=== PATIENT | female | born 1945 | race Caucasian/White ===

== ENCOUNTER 2023-03-12 17:33 | Emergency (ER) | payer MEDICARE, MEDICAID, SELFPAY ==
[2023-03-12 17:34] VITALS: BP 150/67; PULSE 96; RESP 16; TEMP 36.8; O2SAT 98
[2023-03-12 17:49] VITALS: BMI 16.7
--- NOTE | 2023-03-12 17:51 | EDS_ITS ---
HPI History of Present Illness Chief Complaint: Hyperglycemia Informant: patient and family Onset/Context/Timing Onset: Today Context: Gradual Onset Timing: Continuous Worsened by: Nothing Relieved by: Nothing Narrative Narrative: Patient presents with hyperglycemia that was noticed today. The had an episode of hypoglycemia and family called EMS. Family states her blood sugar was 35 at that time. Family states EMS administered glucose and instructed her to eat her normal diet. Family states patient was feeling better. Family was repeating her blood sugars at home and noticed that her blood sugar went up to 285 and then up to 325 while they were at home. Patient denies any symptoms. Patient denies any history of diabetes. Patient denies any recent fevers or chills. [facility] Medical History (Updated 03/12/23 @ 18:[address] Bakari Ca DO) CHF (congestive heart failure) COPD (chronic obstructive pulmonary disease) Hypercholesteremia Hypertension Home Medications Atorvastatin Calcium 40 mg PO DAILY 03/26/17 [History Last Taken 03/26/17] enalapril maleate 20 mg tablet 20 mg PO BID 03/26/17 [History Last Taken 03/26/17] fluticasone 250 mcg-salmeterol 50 mcg/dose blistr powdr for inhalation (Advair Diskus) 1 ea IH DAILY 03/26/17 [History Last Taken 03/26/17] hydrochlorothiazide 25 mg tablet 25 mg PO DAILY 03/26/17 [History Last Taken 03/26/17] levothyroxine 88 mcg tablet (Synthroid) 88 mcg PO DAILY 03/26/17 [History Last Taken 03/26/17] Allergy/AdvReac Type Severity Reaction Status Date / Time No Known Allergies Allergy Verified 03/12/23 17:50 Surgical History (Updated 03/12/23 @ 17:[address] Bakari Ca DO) History of thyroid surgery Social History Smoking Status: Former smoker ROS ROS ED Constitutional Constitutional ED: Denies chills or fever(s) Eyes Eyes: Denies blurry vision or change in vision ENT ENT ED: Denies rhinorrhea or sore throat Cardiovascular Cardiovascular: Denies chest pain or palpitations Respiratory/Chest Respiratory/Chest: Denies cough or dyspnea Gastrointestinal Gastrointestinal: Denies nausea or vomiting Genitourinary Genitourinary ED: Denies dysuria or hematuria Musculoskeletal Musculoskeletal: Denies back pain or neck pain Integumentary Denies abscess or rash Neurologic Neurologic: Denies headache(s) or weakness Allergic/Immunologic Allergic/Immunologic ED: Denies mouth swelling or urticaria EXAM Physical Exam Const Vital Signs: 03/12/23 17:34 03/12/23 17:52 Temperature 98.2 F Temperature Source Temporal Pulse Rate 96 Respiratory Rate 16 Respiratory Effort Normal Non-Labored Blood Pressure 150/67 H Blood Pressure Mean 94 Pulse Ox 98 Oxygen Delivery Method Room Air Positive well nourished and well developed General Appearance ED: well developed HEENT Reports moist mucous membranes Neck supple and no JVD Resp normal respiratory effort and clear to auscultation bilaterally Cardio regular rate, regular rhythm and no murmurs GI normal to inspection, nondistended, normoactive bowel sounds and non-tender Palpation: soft Neuro oriented x3, CN's II-XII intact bilaterally and no sensory deficits noted Sensorium / Orientation: alert Motor Exam: strength 5/5 throughout Psych mental status grossly normal Skin no rashes or lesions noted MDM MDM MDM Narrative Medical decision making narrative: Differential diagnosis includes hyperosmolar hyperglycemic state, DKA, and hyperglycemia. CBC will be obtained to assess for leukocytosis and anemia. Basic metabolic profile will be obtained to assess for electrolyte abnormality, hyperglycemia, and renal function. Urinalysis will be obtained to assess for urinary tract infection and glucosuria. Lab Data Attestation: I reviewed the patient's lab results. Lab results narrative: CBC was reviewed. There is some mild anemia with a hemoglobin of 11.1 and hematocrit 35.2. Platelets were normal. Basic metabolic profile showed an elevated glucose of 232. Sodium was 131 and chloride was 87. CO2 was slightly elevated at 38. Anion gap was normal. Urinalysis was reviewed. There is mild glucosuria of 250. There is no evidence of urinary tract infection or hematuria. Labs: Laboratory Results - last 24 hr 03/12/23 03/12/23 03/12/23 17:47 17:55 17:55 WBC 8.8 RBC 3.80 L Hgb 11.1 L Hct 35.2 L MCV 92.6 MCH 29.2 MCHC 31.5 L RDW Std Deviation 43.8 RDW Coeff of Jomar 12.8 Plt Count 210 MPV 8.9 Immature Gran % (Auto) 0.200 Neut % (Auto) 82.1 H Lymph % (Auto) 7.1 L [place] % (Auto) 9.4 Eos % (Auto) 0.9 Baso % (Auto) 0.3 Absolute Neuts (auto) 7.2 Absolute Lymphs (auto) 0.62 L Nucleated RBC % 0 Sodium 131 L Potassium 3.9 Chloride 87 L Carbon Dioxide 38.0 H Anion Gap 6 BUN 24 H Creatinine 0.75 Estim Creat Clear Calc 32.77 Est GFR (MDRD) Af Amer 96 Est GFR (MDRD) Non-Af 80 BUN/Creatinine Ratio 32.1 H Glucose 232 H Calcium 9.5 Urine Color Urine Clarity Urine pH Ur Specific [place] Urine Protein Urine Glucose (UA) Urine Ketones Urine Occult Blood Urine Nitrite Urine Bilirubin Urine Urobilinogen Ur Leukocyte Esterase Urine RBC Urine WBC Ur Squamous Epith Cells Urine Bacteria Urine Mucus POC Glucose 239 H 03/12/23 18:06 WBC RBC Hgb Hct MCV MCH MCHC RDW Std Deviation RDW Coeff of Jomar Plt Count MPV Immature Gran % (Auto) Neut % (Auto) Lymph % (Auto) [place] % (Auto) Eos % (Auto) Baso % (Auto) Absolute Neuts (auto) Absolute Lymphs (auto) Nucleated RBC % Sodium Potassium Chloride Carbon Dioxide Anion Gap BUN Creatinine Estim Creat Clear Calc Est GFR (MDRD) Af Amer Est GFR (MDRD) Non-Af BUN/Creatinine Ratio Glucose Calcium Urine Color Yellow Urine Clarity Sl. Cloudy Urine pH 7.0 Ur Specific [place] 1.010 Urine Protein 15 H Urine Glucose (UA) 250 H Urine Ketones Negative Urine Occult Blood Negative Urine Nitrite Negative Urine Bilirubin Negative Urine Urobilinogen 1 H Ur Leukocyte Esterase 100 H Urine RBC 0 SEEN Urine WBC 0-5 SEEN Ur Squamous Epith Cells 0 SEEN Urine Bacteria 0 SEEN Urine Mucus 0 SEEN POC Glucose Treatment and Re-Evaluation :: Patient is feeling better on reevaluation. Patient was advised of her findings. Patient was instructed to continue her diet as previously instructed. Patient was instructed to follow-up with her primary care physician in 5 to 7 days. Patient and family understood and were agreeable with the plan. All questions were answered. Discharge Plan Triage Chief Complaint: Hyperglycemia ED Provider: Bakari Ca Dx/Rx/DC Orders Clinical Impression: Hyperglycemia Instructions: ED Hyperglycemia New Susp Diabetes Prescriptions: No Action Atorvastatin Calcium 40 MG tablet 40 mg PO DAILY fluticasone propion-salmeterol [Advair Diskus] 1 EACH blister with device 1 ea IH DAILY enalapril maleate 20 MG tablet 20 mg PO BID levothyroxine [Synthroid] 88 MCG tablet 88 mcg PO DAILY hydrochlorothiazide 25 MG tablet 25 mg PO DAILY Primary Care Provider: [facility] Doctor,Out of Referrals: [facility] Doctor,Out of [Primary Care Provider] - 5-7 Days Disposition Disposition: Home, Self Care
[2023-03-12 18:03] LABS: Absolute Lymphocyte Count 0.62 X10^3/uL (0.83-4.51); Absolute Neutrophil Count 7.2 X10^3/uL (2.0-7.7); Basophil# 0.03 X10^3/uL; Basophil% 0.3 % (0-1); Eosinophil# 0.08 X10^3/uL; Eosinophils% 0.9 % (0-5); Hematocrit 35.2 % (37-47); Hemoglobin 11.1 g/dL (12.0-15.0); Lymphocyte # 0.62 X10^3/ul (0.83-4.51); Lymphocyte % 7.1 % (19-41); Mean Corp Hgb Conc 31.5 g/dL (32-36); Mean Corpuscular Hgb 29.2 pg (27.0-32.0); Mean Corpuscular Volume 92.6 fL (81-99); Mean Platelet Vol. 8.9 fl (6.2-12.0); Monocyte# 0.82 X10^3/uL; Monocyte% 9.4 % (0-10); NRBC Flagged by Analyzer 0 % (0-5); Neutrophil # 7.19 X10^3/uL (2.7-7.7); Neutrophil % 82.1 % (47-70); Platelet Count 210 K/mm3 (150-450); RBC Distribution Width CV 12.8 % (11.6-14.6); RBC Distribution Width SD 43.8 fl (35.1-43.9); White Blood Count 8.8 K/mm3 (4.4-11.0)
[2023-03-12 18:04] LABS: Bedside Glucose 239 mg/dL (74-106)
[2023-03-12 18:11] LABS: Bacteria 0 SEEN /hpf (None Seen); Mucous, Urine 0 SEEN /hpf (<or=2+); Red Blood Cells-Urine 0 SEEN /hpf (0-5); Squamous Epithelial Cells - UA 0 SEEN /hpf (5-10)
[2023-03-12 18:12] LABS: Color, Urine Yellow (Yellow); Glucose, Dipstick 250 mg/dl (Normal); Ketone-Dipstick Negative (Negative); Leukocyte Esterase-Dipstick 100 /ul (Negative); Nitrite-Dipstick Negative (Negative); Occult Blood-Urine Negative /ul (Negative); Protein-Dipstick 15 mg/dl (Negative); Urine Bilirubin Dipstick Negative (Negative); Urine Clarity Sl. Cloudy (Clear); Urine Urobilinogen 1 mg/dl (Normal)
[2023-03-12 18:16] LABS: Anion Gap 6 (5-15); BUN 24 mg/dL (7-18); BUN/Creat Ratio 32.1 RATIO (10-20); Calcium,Total 9.5 mg/dL (8.5-10.1); Chloride 87 mmol/L (98-107); Creatinine, Serum 0.75 mg/dL (0.55-1.02); EST Glomerular Filtration Rate 80 mL/min (>60); Est Glom Filt Rate - Afr Amer 96 mL/min (>60); Estimated Creatinine Clearance 32.77 ml/min; Glucose 232 mg/dL (74-106); Potassium 3.9 mmol/L (3.5-5.1); Sodium Level 131 mmol/L (136-145)
[2023-03-12 18:18] LABS: White Blood Cells 0-5 SEEN /hpf (0-5)
[2023-03-12 18:48] VITALS: BP 146/73; PULSE 94; RESP 18; O2SAT 96
--- NOTE | 2023-03-12 18:49 | ED.RN ---
PT WEARS 3L NC AT BASELINE, DISCHARGED ON 3L NC.
== END 2023-03-12 18:51 | disposition home or self-care (01) ==
PROVIDERS: Emergency Provider Emergency Medicine; Visit Provider Emergency Medicine
DX: R73.9 Hyperglycemia, unspecified (principal); J44.9 Chronic obstructive pulmonary disease, unspecified; I11.0 Hypertensive heart disease with heart failure; I50.9 Heart failure, unspecified; Z87.891 Personal history of nicotine dependence; E78.00 Pure hypercholesterolemia, unspecified; Z79.899 Other long term (current) drug therapy
CPT/HCPCS: 80048; 81001; 82962; 85025; 99283; A4216

== ENCOUNTER 2023-11-23 19:16 | Inpatient (IN) | payer MEDICARE, MEDICAID, SELFPAY ==
[2023-11-23 19:20] VITALS: BP 139/70; PULSE 93; RESP 18; TEMP 36.2; O2SAT 95
--- NOTE | 2023-11-23 19:57 | EKG12_ITS ---
Test Reason : LOWER EXT Blood Pressure : / mmHG Vent. Rate : 098 BPM Atrial Rate : 098 BPM P-R Int : 128 ms QRS Dur : 086 ms QT Int : 310 ms P-R-T Axes : 081 051 064 degrees QTc Int : 395 ms Normal sinus rhythm Right atrial enlargement Borderline ECG Confirmed by SAVANNAH ARAUZ, DIANN ([id number]), managing editor SUSANNE CHONG ([id number]) on 11/25/2023 10:36:54 AM Referred By: Confirmed By:DIANN NUÑEZ MD
--- NOTE | 2023-11-23 20:00 | RAD_ITS ---
STUDY: X-RAY - PELVIS REASON FOR EXAM: Female, 77 years old. FALL TECHNIQUE: One view of the pelvis was obtained. COMPARISON: None. FINDINGS: Abundant fecal debris within the colon which may indicate constipation. Normal visualized soft tissue structures. There is diffuse demineralization of the osseous structures. There is narrowing with cortical sclerosis and osteophyte formation of the sacroiliac joint consistent with degenerative osteoarthritic changes. Normal visualized bilateral superior and inferior pubic rami. There are degenerative changes of the pubic symphysis with articular narrowing and sclerosis. Normal ischial tuberosities. There is right femoral neck subcapital fracture with superior displacement of the femoral shaft in relation to the femoral head. Normal right acetabulum. There is mild articular joint space narrowing of the right hip. Normal visualized left femoral head. Normal left acetabulum. There is mild articular joint space narrowing of the left hip. RAD/Pelvis 1 or 2 Views IMPRESSION: Right femoral neck/subcapital fracture as described with some degree of superior displacement of the femoral shaft in relation to the head. No joint dislocation. Electronically Signed: Kamla Valdivia MD at 20:42 EST ,
--- NOTE | 2023-11-23 20:00 | RAD_ITS ---
STUDY: X-RAY - RIGHT ANKLE REASON FOR EXAM: Female, 77 years old. pain TECHNIQUE: 2 view(s) of the ankle. COMPARISON: None. FINDINGS: Possible diffuse osteopenia. Otherwise normal visualized distal tibia and fibula. Normal medial and lateral malleoli. Normal tibiotalar articulation and ankle mortise. Normal visualized talus and calcaneus. The visualized subtalar, talonavicular, calcaneocuboid and tarsal articulations are normal. There is no demonstrated fracture. Diffuse soft tissue swelling of the distal calf and ankle. RAD/Ankle 2 Views IMPRESSION: Possible osteopenia with no acute fracture or subluxation. Nonspecific soft tissue swelling as described. Electronically Signed: Kalma Valdivia MD at 20:39 EST ,
--- NOTE | 2023-11-23 20:00 | RAD_ITS ---
STUDY: X-RAY CHEST REASON FOR EXAM: Female, 77 years old. FALL TECHNIQUE: Single AP portable view of the chest. COMPARISON: None. FINDINGS: There is a large mass within the right mid upper lung measuring 8.3 x 7.2 cm with questionable cavitation which may indicate neoplasm versus cavitary infectious process. There is left perihilar interstitial opacity with thickening of interstitial markings which may indicate asymmetric vascular congestion versus left perihilar pneumonitis. The lungs are hyperinflated with flattening of the hemidiaphragms suggestive of underlying COPD or emphysema. Possible minimal right-sided pleural thickening. No pneumothorax. Normal size heart. Normal mediastinum and tegan. There is atherosclerotic calcification of the aortic arch with tortuosity. There is demineralization of the osseous structures. Normal visualized ribs, clavicles, and shoulders. There is no demonstrated abnormality of the visualized soft tissue structures of the upper abdomen. RAD/Chest 1 View IMPRESSION: Large cavitary lesion in the right mid upper lung suggestive of neoplasm versus cavitary infectious process. If indicated, follow-up with CT chest recommended. Left perihilar pneumonia versus less likely asymmetric vascular congestion/pulmonary interstitial edema. Electronically Signed: Kamla Valdivia MD at 20:44 [facility] ,
--- NOTE | 2023-11-23 20:00 | RAD_ITS ---
STUDY: X-RAY - RIGHT TIBIA AND FIBULA REASON FOR EXAM: Female, 77 years old. pain TECHNIQUE: 2 view(s) of the tibia and fibula were obtained. COMPARISON: None. FINDINGS: There is demineralization of the tibia. There is demineralization of the fibula. There is no demonstrated acute fracture. Possible mild diffuse soft tissue swelling. RAD/Tibia & Fibula 2 Views IMPRESSION: Question osteopenia with no distinct fracture or subluxation seen. Electronically Signed: Kamla Valdivia MD at 21:26 EST ,
--- NOTE | 2023-11-23 20:00 | RAD_ITS ---
STUDY: X-RAY - RIGHT FEMUR REASON FOR STUDY: Female, 77 years old. pain TECHNIQUE: 2 view(s) of the femur. COMPARISON: None. FINDINGS: There is diffuse demineralization of the femur. Normal visualized soft tissue structure. There is a right femoral To fracture with superior displacement of the femoral shaft in relation to the femoral head. RAD/Femur Min 2 Views IMPRESSION: Femoral neck fracture as described with superior displacement of the femoral shaft in relation to the head. No joint dislocation seen. Electronically Signed: Kamla Valdivia MD at 20:40 EST ,
[2023-11-23] MEDS: Ibuprofen 600 MG Tablet PO (20:21)
[2023-11-23 20:30] LABS: Absolute Lymphocyte Count 0.96 X10^3/uL (0.83-4.51); Absolute Neutrophil Count 8.6 X10^3/uL (2.0-7.7); Basophil# 0.05 X10^3/uL; Basophil% 0.5 % (0-1); Eosinophil# 0.19 X10^3/uL; Eosinophils% 1.8 % (0-5); Hematocrit 35.9 % (37-47); Hemoglobin 10.9 g/dL (12.0-15.0); Lymphocyte # 0.96 X10^3/ul (0.83-4.51); Lymphocyte % 9.1 % (19-41); Mean Corp Hgb Conc 30.4 g/dL (32-36); Mean Corpuscular Hgb 27.6 pg (27.0-32.0); Mean Corpuscular Volume 90.9 fL (81-99); Monocyte# 0.71 X10^3/uL; Monocyte% 6.7 % (0-10); NRBC Flagged by Analyzer 0 % (0-5); Neutrophil % 81.6 % (47-70); Platelet Count 260 K/mm3 (150-450); RBC Distribution Width CV 12.8 % (11.6-14.6); RBC Distribution Width SD 42.9 fl (35.1-43.9); Red Blood Count 3.95 M/mm3 (4.2-5.4); White Blood Count 10.5 K/mm3 (4.4-11.0)
[2023-11-23 20:46] VITALS: BP 140/71; PULSE 99; RESP 18; TEMP 36.6; O2SAT 92
[2023-11-23 20:48] LABS: Anion Gap 3 (5-15); BUN 28 mg/dL (7-18); BUN/Creat Ratio 37.5 RATIO (10-20); Chloride 90 mmol/L (98-107); Creatinine, Serum 0.75 mg/dL (0.55-1.02); EST Glomerular Filtration Rate 80 mL/min (>60); Est Glom Filt Rate - Afr Amer 96 mL/min (>60); Glucose 126 mg/dL (74-106); Potassium 4.3 mmol/L (3.5-5.1); Sodium Level 133 mmol/L (136-145); Troponin-I HS 21 pg/mL (3.0-54.0)
--- OUTSIDE RECORDS SUMMARY | 2023-11-23 20:55 | XMS RPT_ITS | CCD ---
Author Name Unknown Address [address] [place] [address] Organization [facility] Care Team Providers Care Language Asst Name Role Phone Matthew Blount Primary Care Provider [facility] Provider Flynn ARAUZ, Jeffrey Sheppard Primary Care Provider [phone] Sebas Torre MD Unavailable Sebas Torre MD Unavailable Sera DO, Heather Primary Care Provider [phone] Sebas Torre MD Unavailable Sera DO, Heather Primary Care Provider [phone] Shuffstall DO, Shannon Unavailable Sebas Torre MD Unavailable CINKO, LIBERTINE Referring Unavailable SERA, HEATHER Primary Care Unavailable SERA, HEATHER Referring Unavailable CINKO, LIBERTINE Attending Unavailable SERA, HEATHER Primary Care Unavailable SERA, HEATHER Primary Care Unavailable IAM VITAL Attending Unavailable LINSEY MATTHEW Referring Unavailable SERA, HEATHER Primary Care Unavailable LINSEY MATTHEW Referring Unavailable SERA, HEATHER Primary Care Unavailable LINSEY MATTHEW Attending Unavailable SERA, HEATHER Primary Care Unavailable Shuffstall DO, Shannon Unavailable SERA, HEATHER Primary Care Unavailable Allergies Allergy Classification Reported Allergen(s) Allergy Type Date of Onset Reaction(s) Facility (5 sources) Penicillins; Translations: [PENICILLINS] Drug Allergy 06-21-2014 Rash [facility] (17 sources) Penicillins Drug Allergy 06-21-2014 Rash [facility] Medications Current Medications Medication Drug Class(es) Dates Sig (Normalized) Sig (Original) amLODIPine 10 mg oral tablet (20 sources) Dihydropyridine Calcium Channel Magali Start: 07-28-2021 End: 03-03-2024 take 1 tablet by mouth once daily amLODIPine (NORVASC) 10 mg tablet Indications: Essential hypertension Take 1 tablet by mouth once daily. 90 tablet 3 03/04/2023 03/03/2024 Active Completed/Discontinued Medications Medication Drug Class(es) Dates Sig (Normalized) Sig (Original) [id number] 200 actuat albuterol 0.09 mg/actuat metered dose inhaler (2 sources) beta2-Adrenergic Agonist Start: 07-28-2021 End: 02-25-2022 take 2 puff(s) by inhalation every six hours as needed for wheezing albuterol HFA (VENTOLIN HFA) 90 mcg/actuation inhaler Indications: Advanced COPD (HCC) Inhale 2 Puffs as instructed every 6 hours as needed for wheezing/shortness of breath. 1 Each 0 07/28/2021 02/25/2022 Discontinued Problems Active Problems Problem Classification Problem Date Documented Da te Episodic/Chronic Abdominal pain (3 sources) Epigastric pain; Translations: [Epigastric pain] Onset: 04-27-2023 04-27-2023 Episodic Chronic obstructive pulmonary disease and bronchiectasis (20 sources) Chronic obstructive lung disease; Translations: [Chronic obstructive pulmonary disease, unspecified] Onset: 04-16-2021 04-16-2021 Chronic Essential hypertension (20 sources) Essential hypertension; Translations: [Essential (primary) hypertension] Onset: 04-16-2021 Chronic Hypertension with complications and secondary hypertension (14 sources) Hypertensive heart failure; Translations: [Hypertensive heart disease with heart failure] Onset: 01-11-2023 01-11-2023 Chronic Mood disorders (1 source) Mood disorders; Translations: [Depression, unspecified depression type] Onset: 01-11-2023 Other endocrine disorders (1 source) Hypoglycemia; Translations: [Hypoglycemia, unspecified] 03-23-2023 Chronic Other endocrine disorders (1 source) Hypoglycemia, unspecified; Translations: [Hypoglycemia] Onset: 03-23-2023 Chronic Other nutritional; endocrine; and metabolic disorders (2 sources) Hypercalcemia; Translations: [Hypercalcemia] Chronic Other upper respiratory infections (1 source) Acute rhinosinusitis; Translations: [Acute sinusitis, unspecified] 07-19-2023 Episodic Residual codes; unclassified (1 source) Bilateral lower limb edema; Translations: [Localized edema] Episodic Thyroid disorders (20 sources) Hypothyroidism; Translations: [Hypothyroidism, unspecified] Onset: 04-16-2021 04-16-2021 Chronic Viral infection (1 source) Disease caused by 2019-nCoV; Translations: [COVID-19] Episodic Viral infection (1 source) COVID-19; Translations: [COVID-19 virus infection] Onset: 11-18-2022 Past or Other Problems Problem Classification Problem Date Documented Da te Episodic/Chronic Administrative/social admission (1 source) Other specified counseling; Translations: [Advanced care planning/counseling discussion] Onset: 01-11-2023 Episodic Other screening for suspected conditions (not mental disorders or infectious disease) (1 source) Encounter for screening for nutritional disorder; Translations: [Screening for malnutrition] Onset: 01-11-2023 Episodic Results Test Name Value Interpretation Reference Range Facil ity Vital Signs Date Time Vital Sign Value Performing Clinician Faci lity 03-23-2023 09:43-0400 Body weight 44.91 kg Linsey Matthew MD Work Phone: [facility] 03-23-2023 09:43-0400 Diastolic blood pressure 60 mm[Hg] Linsey Matthew MD Work Phone: [facility] 03-23-2023 09:43-0400 Heart rate 94 /min Linsey Matthew MD Work Phone: [facility] 03-23-2023 09:43-0400 SaO2% (BldA) [Mass fraction] 95 % Linsey Matthew MD Work Phone: [facility] 03-23-2023 09:43-0400 Systolic blood pressure 130 mm[Hg] Linsey Matthew MD Work Phone: [facility] 02-25-2022 09:10-0400 Body height 165.1 cm Sebas Torre MD Work Phone: [facility] 02-25-2022 09:10-0400 Body temperature 98.1 [degF] Sebas Torre MD Work Phone: [facility] 02-25-2022 09:10-0400 Body weight 47.17 kg Sebas Torre MD Work Phone: [facility] 02-25-2022 09:10-0400 Diastolic blood pressure 75 mm[Hg] Sebas Torre MD Work Phone: [facility] 02-25-2022 09:10-0400 Heart rate 93 /min Sebas Torre MD Work Phone: [facility] 02-25-2022 09:10-0400 Respiratory rate 20 /min Sebas Torre MD Work Phone: [facility] 02-25-2022 09:10-0400 SaO2% (BldA) [Mass fraction] 97 % Sebas Torre MD Work Phone: [facility] 02-25-2022 09:10-0400 Systolic blood pressure 149 mm[Hg] Sebas Torre MD Work Phone: [facility] Encounters Encounter Date Encounter Type Care Provider Facility Start: 07-29-2023 Refill Libjosselyn lebron APRN.CNP Work Phone: [facility] Internal [facility] ([facility]) Procedures Date Procedure Procedure Detail Performing Clinician Start: 04-16-2021 Adult depression screening assessment Sebas Torre MD Work Phone: Start: 11-07-2009 CONVERTED SURGICAL PATHOLOGY Steve Wooten Work Phone: Start: 09-19-2008 CONVERTED CYTOLOGY [employer] Darline Beverly Start: 09-21-2005 CONVERTED CYTOLOGY [place] Juvencio Goldsmith Work Phone: Plan of Treatment Date Care Activity Detail Author Start: 03-23-2026 DIABETES SCREEN DIABETES SCREEN [facility] Start: 03-23-2026 [facility] 01-11-2026 DIABETES SCREEN DIABETES SCREEN [facility] Start: 04-16-2024 DIABETES SCREEN DIABETES SCREEN [facility] Start: 03-23-2024 ANNUAL PCP TEAM BRINE TANK OPERATOR MARCELO DISEASE VISIT ANNUAL PCP TEAM CHRONIC DISEASE VISIT [facility] Start: 01-12-2024 ANNUAL PCP TEAM BRINE TANK OPERATOR MARCELO DISEASE VISIT ANNUAL PCP TEAM CHRONIC DISEASE VISIT [facility] Start: 11-18-2023 ANNUAL PCP TEAM BRINE TANK OPERATOR MARCELO DISEASE VISIT ANNUAL PCP TEAM CHRONIC DISEASE VISIT [facility] Start: 06-03-2023 Covid-19 Vaccine () Covid-19 Vaccine () [facility] Start: 06-03-2023 Influenza vaccination C [facility] Start: 02-25-2023 ANNUAL PCP TEAM BRINE TANK OPERATOR MARCELO DISEASE VISIT ANNUAL PCP TEAM CHRONIC DISEASE VISIT [facility] Start: 02-25-2023 BONE DENSITY BONE DENSITY [facility] Immunizations Immunization Date Immunization Notes Care Provider Fa hemal 08-20-2022 influenza (HD-IIV4) vaccine, age 65+ yr, high dose, quadrivalent, PF (FLUZONE HIGH-DOSE) Brittany Quintero APRN.CNMT Work Phone: [facility] 08-20-2022 influenza virus vacc ine, unspecified formulation Beckie Yo APRN.CNMT Work Phone: [facility] 07-28-2021 influenza, high-dose , quadrivalent vaccine (FLUZONE HIGH DOSE QUADRIVALENT) Sebas Torre MD Work Phone: [facility] 10-26-2019 influenza, injectabl e, quadrivalent, preservative free Sebas Torre MD Work Phone: [facility] 07-03-2018 influenza, seasonal, injectable, preservative free Sebas Torre MD Work Phone: [facility] 09-12-2017 influenza, seasonal, injectable Sebas Torre MD Work Phone: [facility] 11-04-2016 pneumococcal conjuga te vaccine, 13 valent Sebas Torre MD Work Phone: [facility] 09-12-2015 influenza, seasonal, injectable Sebas Torre MD Work Phone: [facility] Payers Date Payer Category Payer [place] [id number] 2017-Present [phone] [address] [place] [address] Medicaid [id number] 2017 [place] [id number] 2017-Present [phone] [address] [place] [address] Medicaid [id number] 2017 Medicaid [id number] 2007 Medicare [id number] 2007 Medicare MEDICARE MEDICAR E A AND B [id number] 2007-Present [phone] [place] [address] Medicare [id number] 2007 Medicare [id number] Social History Date Type Detail Facility Tobacco smoking stat [facility] Unknown if ever smoked [facility] Start: 1945 Sex Assigned At Not on file C [facility] Start: 10-26-2019 End: 03-23-2023 Tobacco smoking status HIIS Ex-smoker [facility] History of tobacco use Cigarette Smoker C [facility] Start: 10-26-2019 End: 03-23-2023 Tobacco use and exposure Smokeless tobacco non-user [facility] Start: 07-28-2021 End: 03-23-2023 Alcohol intake Ex-drinker (finding) [facility] Start: 10-26-2019 End: 03-23-2023 Tobacco Comment quit in 2004 [facility] Start: 01-17-2022 End: 02-25-2022 Exposure to SARS-CoV-2 (event) Not sure [facility] History of tobacco use Current smoker [facility] Start: 01-11-2023 End: 03-23-2023 History of Social function [facility] Work Phone: Start: 01-11-2023 End: 03-23-2023 Tobacco use panel [facility] Work Phone: Adult Depression Screening Assessment 2 [facility] Work Phone: Clinical Notes 01-27-2022 to 08-01-2023 Telephone Encounter - Renata Garcia PSS - 08/01/2023 1:57 PM EDTTelephone Encounter - Renata Garcia PSS - 08/01/2023 1:56 PM EDBeckie Carvajal APRN.CNMT - 07/19/2023 2:17 PM EDT Note Date & Type Note Facility 08-01-2023 Miscellaneous Notes Duplicate request. Renata Garcia, Enterprise Application Administrator August 01, 2023 1:57 PM documented in this encounter [facility] 08-01-2023 Miscellaneous Notes Last Office Visit Date: 01/11/2023 Last [facility] Visit: 11/18/2022 Has the patient had an appointment at [facility] in the past year, or do they have an upcoming appointment scheduled at [facility]? YES- Continue with refill request. Future Appointment: Visit date not found Patient MyChart message requesting the following refill Refill(s) Requested: Requested Prescriptions Pending Prescriptions Disp Refills enalapril (VASOTEC) 20 mg tablet 90 tablet 1 Sig: Take 1 tablet by mouth once daily. chlorthalidone (HYGROTON) 25 mg tablet 45 tablet 1 Sig: Take 0.5 tablets by mouth once daily. ALLERGIES Allergen Reactions Penicillins Rash (home) [phone] (cell) The patients preferred pharmacy has been captured for this encounter? yes Request is for script(s) to be escript to pharmacy. CHANTELLE Maynard documented in this encounter [facility] 07-19-2023 Note HNO ID: [id number] Author: Beckie Yo APRN.CNP Service: ? Author Type: Nurse Practitioner Type: Progress Notes Filed: 07/19/2023 2:20 PM Note Text: This is an Express Care eVisit note for Constanza Hernandez eVisit/Questionnaire reviewed The chief complaint for the visit - Patient presents with: Sinus Problem Recommendations/Treatment plan - Rx as below plus self care. See My Chart Message to patient. Recommendation for follow up - PRN Time spent: 5-10 minutes The following approved medication requests have been transmitted electronically. Requested Prescriptions Signed Prescriptions Disp Refills doxycycline (VIBRA-TABS) 100 mg tablet 10 tablet 0 Sig: Take 1 tablet by mouth two times a day for 5 days. Beckie Yo APRN.CNP [facility] 07-19-2023 History of Present illness Narrative This is an Express Care eVisit note for Constanza Emmanuelit/Questionnaire reviewed The chief complaint for the visit - Patient presents with: Sinus Problem Recommendations/Treatment plan - Rx as below plus self care. See My Chart Message to patient. Recommendation for follow up - PRN Time spent: 5-10 minutes The following approved medication requests have been transmitted electronically. Requested Prescriptions Signed Prescriptions Disp Refills doxycycline (VIBRA-TABS) 100 mg tablet 10 tablet 0 Sig: Take 1 tablet by mouth two times a day for 5 days. Beckie Yo APRN.DANAE documented in this encounter [facility] 05-10-2023 Miscellaneous Notes Results reviewed by patient on Mychart. L/m for Aria (daughter) to call the office. Sivan [email or web address].[email or web address] ----- Message from Linsey Matthew MD sent at 05/07/2023 12:52 PM EDT ----- Ct scan is normal. documented in this encounter [facility] 04-27-2023 Note HNO ID: [id number] Author: Zandra Pablo RT(R) Service: Radiology Author Type: Technologist Type: Progress Notes Filed: 04/27/2023 1:01 PM Note Text: Radiology Service Progress Note PATIENT NAME: Constanza Hernandez DATE OF SERVICE: April 27, 2023 TIME: 1:01 PM PATIENT IDENTITY VERIFICATION COMPLETED USING TWO (2) IDENTIFIERS: Name and Date of confirmed by patient verbally and Name and Date of confirmed by identification band. FALL SCREENING: Has the patient had 2 falls in the last year or 1 fall with injury or currently using an Ambulatory Assistive Device (Walker, Cane, Wheelchair, Crutches, etc.)? No PATIENT GENDER DATA: Female. status: : No status: NO. PATIENT RELEVANT IMPLANT DATA REVIEWED: Not Applicable RADIOLOGY DEPARTMENT: CT; Exam(s) Completed: Abdomen/Pelvis PERIPHERAL IV DATA: Not applicable SIGNED BY: ALTAGRACIA Minaya) April 27, 2023 1:01 PM [facility] 04-27-2023 History of Present illness Narrative Radiology Service Progress Note PATIENT NAME: Constanza Hernandez DATE OF SERVICE: April 27, 2023 TIME: 1:01 PM PATIENT IDENTITY VERIFICATION COMPLETED USING TWO (2) IDENTIFIERS: Name and Date of confirmed by patient verbally and Name and Date of confirmed by identification band. FALL SCREENING: Has the patient had 2 falls in the last year or 1 fall with injury or currently using an Ambulatory Assistive Device (Walker, Cane, Wheelchair, Crutches, etc.)? No PATIENT GENDER DATA: Female. status: : No status: NO. PATIENT RELEVANT IMPLANT DATA REVIEWED: Not Applicable RADIOLOGY DEPARTMENT: CT; Exam(s) Completed: Abdomen/Pelvis PERIPHERAL IV DATA: Not applicable SIGNED BY: ALTAGRACIA Minaya) April 27, 2023 1:01 PM documented in this encounter [facility] 04-14-2023 Miscellaneous Notes Left message for patient to return call regarding results. ----- Message from Linsey Matthew MD sent at 04/04/2023 10:11 AM EDT ----- Patient is not diabetic at this time. Hypoglycemic episodes is possibly due to transient fasting states and sugar spikes. Please ask patient to eat consistently throughout the day and increase protein intake. documented in this encounter [facility] 04-04-2023 Miscellaneous Notes Authorization #: approved Lab Results: not required Test date and time: 04/15/23 1 pm Facility for test: [facility] Name of test: CT abdomen/pelvis w/o oral & IV contrast. No prep Patient confirmed test via My Chart Jennifer Middleton MA April 04, 2023 4:58 PM documented in this encounter [facility] 03-23-2023 Note HNO ID: [id number] Author: Linsey Matthew MD Service: ? Author Type: Physician Type: Progress Notes Filed: 05/01/2023 10:56 PM Note Text: Linsey Matthew MD [facility] General Geriatrics [address] [place] [address] COMPREHENSIVE GERIATRICS ASSESSMENT Patient presents with: Depression Diabetes There are no exam notes on file for this visit. History of Present Illness Ms. Constanza Hernandez is a 77 year old year old lady referred for Comprehensive Geriatrics Assessment, as referred by ED for evaluation of depression and memory loss. She is here with her daughter, Aria On March 12 she was taken in the ED, had blood glucose of 32. She has never had a diagnosis of DM, Would like to address this visit today. States she occasional depression. Worries a lot. Denies polydipsia, polyuria, polyphagia, UTI. Goals: Glucose, labs, medication. Memory: Sometimes has to stop and think, but isn't writing notes. Daughter says its better than hers. Home: She lives with her daughter Aria. Has 5 people living with her. [place] house. She has everything she needs on the same floor. Social Engagement: Family. Does not go out. Hobbies: puzzle books. Mood: No changes Sleep: Has some issues with sleep. Does not sleep through the night. Gets around 4/5 hours of sleep a night, with a nap during the day. Appetite: Fluctuates. States its usually good. 4 meals a day, grazes on food. Doesn't eat a lot at once. Makes soup. 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 CHART REVIEW: Blood glucoses have been widely ranging. Her sugars are over 100 at home at this time. No increased hunger or thirst. No headache. I) What Matters Most/Goals for Care: Healthcare proxy: not in place Code Status: DNR Advance Care Planning: Have wishes or desires for end-of-life care been discussed? No Is a power of workers compensation attorney in place for financial needs? No Is a power of workers compensation attorney in place for health care decisions? No Is palliative or hospice care appropriate for the patient? No II) Mentation: Normal Mood Evaluation and Screening GDS: Negative ANTOINE-7: Negative III) Mobility: Functional Evaluation: B-ADLs: (I=independent,A=assistance,D=dep endent) ?Bathing: A, Dressing: I, Toileting: I, Transferring:I, Continence: I, Feeding: I, (Yates Index): 6 I-ADLs: Ability to use phone: I, Shopping: D, Cooking: I, Housekeeping: A, Laundry: A, Transportation:D, Medications: I, Handle Finances: I. (Leroy scale): 4 Mobility Aid: None - is interested in a walker with a tray to carry oxygen Falls: .: Falls in the last 12 months: None. If + falls (mechanism of most recent fall): Safety Assessment Checklist Questions (Yes/ No) 1. Is the patient still driving? No 2. Is the patient taking medications as prescribed? 3. Are there concerns about safety in the home? 4. Has the patient gotten lost in familiar places or wandered? 5. Are firearms present in the home? 6. Has the patient experienced unsteadiness or sustained falls? 7. Does the patient live alone? Frailty Screening (F.R.A.I.L Scale-Fried): Fatigue: YES Resistance (ability to climb a flight of stairs): NO Aerobics (ability to walk a block): NO Illnesses (presence of > 5 illnesses): YES Loss of Weight (presence of > 5% in the past 6 months): NO Patient is Frail (Robust: 0, Pre-frail: 1-2, Frail: >=3) IV) Medication Review: - ANY HIGH RISK MEDICATIONS (STOPP CRITERIA): NO Mini - Nutritional Assessment Screening Has food intake declined over the past 3 months due to loss of appetite, digestive problems, chewing or swallowing difficulties? 0 = severe decrease in food intake 1 = moderate decrease in food intake 2 = no decrease in food intake 2. Weight loss during the last 3 months 0 = weight loss greater than 3 kg (6.6 lbs) 1 = does not know 2 = weight loss between 1 and 3 kg (2.2 and 6.6 lbs) 3 = no weight loss 3. Mobility 0 = bed or chair bound 1 = able to get out of bed / chair but does not go out 2 = goes out 4. Has suffered psychological stress or acute disease in the past 3 months? 0 = yes 2 = no 5.Neuropsychological problems 0 = severe dementia or depression 1 = mild dementia 2 = no psychological problems 6. Body Mass Index (BMI) (weight in kg) / (height in m) 2 0 = BMI less than 19 1 = BMI 19 to less than 21 2 = BMI 21 to less than 23 3 = BMI 23 or greater Screening score = 14 (max. 14 points) 12-14 points: Normal nutritional status 8-11 points: At risk of malnutrition 0-7 points: Malnourished Geriatrics Review of Systems Incontinence - During the last 3 months did you leak urine? NO Constipation: NO Diarrhea: NO Orthostatic Hypo (more content not included)... [facility] 03-23-2023 History of Present illness Narrative Images from the original note were not included. Linsey Matthew MD [facility] Geriatrics [address] [place] [address] COMPREHENSIVE GERIATRICS ASSESSMENT Patient presents with: Depression Diabetes There are no exam notes on file for this visit. History of Present Illness Ms. Constanza Hernandez is a 77 year old year old lady referred for Comprehensive Geriatrics Assessment, as referred by ED for evaluation of depression and memory loss. She is here with her daughter, Aria On March 12 she was taken in the ED, had blood glucose of 32. She has never had a diagnosis of DM, Would like to address this visit today. States she occasional depression. Worries a lot. Denies polydipsia, polyuria, polyphagia, UTI. Goals: Glucose, labs, medication. Memory: Sometimes has to stop and think, but isn't writing notes. Daughter says its better than hers. Home: She lives with her daughter Aria. Has 5 people living with her. [place] house. She has everything she needs on the same floor. Social Engagement: Family. Does not go out. Hobbies: puzzle books. Mood: No changes Sleep: Has some issues with sleep. Does not sleep through the night. Gets around 4/5 hours of sleep a night, with a nap during the day. Appetite: Fluctuates. States its usually good. 4 meals a day, grazes on food. Doesn't eat a lot at once. Makes soup. 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 CHART REVIEW: Blood glucoses have been widely ranging. Her sugars are over 100 at home at this time. No increased hunger or thirst. No headache. I) What Matters Most/Goals for Care: Healthcare proxy: not in place Code Status: DNR Advance Care Planning: Have wishes or desires for end-of-life care been discussed? No Is a power of workers compensation attorney in place for financial needs? No Is a power of workers compensation attorney in place for health care decisions? No Is palliative or hospice care appropriate for the patient? No II) Mentation: Normal Mood Evaluation and Screening GDS: Negative ANTOINE-7: Negative III) Mobility: Functional Evaluation: B-ADLs: (I=independent,A=assistance,D=dep endent) ?Bathing: A, Dressing: I, Toileting: I, Transferring:I, Continence: I, Feeding: I, (Yates Index): 6 I-ADLs: Ability to use phone: I, Shopping: D, Cooking: I, Housekeeping: A, Laundry: A, Transportation:D, Medications: I, Handle Finances: I. (Leroy scale): 4 Mobility Aid: None - is interested in a walker with a tray to carry oxygen Falls: .: Falls in the last 12 months: None. If + falls (mechanism of most recent fall): Safety Assessment Checklist Questions (Yes/ No) 1. Is the patient still driving? No 2. Is the patient taking medications as prescribed? 3. Are there concerns about safety in the home? 4. Has the patient gotten lost in familiar places or wandered? 5. Are firearms present in the home? 6. Has the patient experienced unsteadiness or sustained falls? 7. Does the patient live alone? Frailty Screening (F.R.A.I.L Scale-Fried): Fatigue: YES Resistance (ability to climb a flight of stairs): NO Aerobics (ability to walk a block): NO Illnesses (presence of > 5 illnesses): YES Loss of Weight (presence of > 5% in the past 6 months): NO Patient is Frail (Robust: 0, Pre-frail: 1-2, Frail: >=3) IV) Medication Review: - ANY HIGH RISK MEDICATIONS (STOPP CRITERIA): NO Mini - Nutritional Assessment Screening Has food intake declined over the past 3 months due to loss of appetite, digestive problems, chewing or swallowing difficulties? 0 = severe decrease in food intake 1 = moderate decrease in food intake 2 = no decrease in food intake 2. Weight loss during the last 3 months 0 = weight loss greater than 3 kg (6.6 lbs) 1 = does not know 2 = weight loss between 1 and 3 kg (2.2 and 6.6 lbs) 3 = no weight loss 3. Mobility 0 = bed or chair bound 1 = able to get out of bed / chair but does not go out 2 = goes out 4. Has suffered psychological stress or acute disease in the past 3 months? 0 = yes 2 = no 5.Neuropsychological problems 0 = severe dementia or depression 1 = mild dementia 2 = no psychological problems 6. Body Mass Index (BMI) (weight in kg) / (height in m) 2 0 = BMI less than 19 1 = BMI 19 to less than 21 2 = BMI 21 to less than 23 3 = BMI 23 or greater Screening score = 14 (max. 14 points) 12-14 points: Normal nutritional status 8-11 points: At risk of malnutrition 0-7 points: Malnourished Geriatrics Review of Systems Incontinence - During the last 3 months did you leak urine? NO Constipation: NO Diarrhea: NO Orthostatic Hypotension: NO Nutrition - Loss of weight (> 5% in the past 6 months): NO Vision Positive for vision impairment and wears glasses Follows with sales support rep:NO Hearing - Hearing aid : Denies any problems, but struggles ALLERGIES Allergen Reactions Penicillins Rash PAST MEDICAL HISTORY Diagnosis Date Congestive heart failure (HCC) COPD (chronic obstructive pulmonary disease) (HCC) Hypertension Hypothyroidism PAST SURGICAL HISTORY Procedure Laterality Date THYROID SURGERY HX partial thyroidectomy Social History Tobacco Use Smoking status: Former Types: Cigarettes Smokeless tobacco: Never Tobacco comments: quit in 2004 Vaping Use Vaping Use: Former Quit date: 10/04/2004 Substance Use Topics Alcohol use: Not Currently Drug use: Not Currently FAMILY HISTORY Problem Relation Age of Onset Heart Attack Mother other (blood pressure) Mother other (blood pressure) Father Current Outpatient Medications Medication Sig amLODIPine (NORVASC) 10 mg tablet Take 1 tablet by mouth once daily. atorvastatin (LIPITOR) 40 mg tablet Take 1 tablet by mouth once daily. enalapril (VASOTEC) 20 mg tablet Take 1 tablet by mouth once daily. fluticasone-salmeterol HFA (ADVAIR HFA) 230-21 mcg/actuation inhaler Inhale 2 Puffs as instructed twice daily. levothyroxine (SYNTHROID) 88 mcg tablet Take 1 tablet by mouth once daily. chlorthalidone (HYGROTON) 25 mg tablet Take 0.5 tablets by mouth once daily. tiotropium bromide (SPIRIVA RESPIMAT) 1.25 mcg/actuation mist Inhale 2 Puffs as instructed once daily. Miscellaneous Medical Supply 1 Each as needed. Quad cane levalbuterol tartrate HFA 45 mcg/actuation inhaler Inhale 1-2 Puffs as instructed every 6 hours as needed for wheezing/shortness of breath. No current facility-administered medications for this visit. I have confirmed and edited as necessary, the chief complaint, medications, past medical, family and social histories. Physical Exam BP 130/60 Pulse 94 Wt 44.9 kg (99 lb) SpO2 95% BMI 16.47 kg/m GEN: Pleasant, elderly female, in NAD Skin: No active skin lesions/rash ENT: moist mucous membranes CV: Normal heart sounds, RRR, no m/r/g. No LE edema Resp: CTAB Abdomen/GI: soft, non tender, non distended, + BS M/S: No joint deformity, normal ROM Neuro/Psych: CN II-XII are grossly intact. Motor: normal strength and tone throughout Movements: Minimal / no postural tremor of both hands, no rest tremor, no cogwheeling or rigidity, no bradykinesia Gait and balance:? turns well in 2 steps, good arm swing. Tandems well. Negative Romberg ? Diagnostics: Glucose (mg/dL) Date Value 01/11/2023 85 10/26/2019 92 Potassium Date Value 01/11/2023 4.3 mmol/L 10/26/2019 3.7 mEq/L Sodium Date Value 01/11/2023 135 mmol/L 10/26/2019 132 mEq/L Chloride Date Value 01/11/2023 86 mmol/L 10/26/2019 92 mEq/L CO2 Date Value 01/11/2023 38 mmol/L 10/26/2019 33 mEq/L Creatinine (mg/dL) Date Value 01/11/2023 0.67 10/26/2019 0.77 BUN (mg/dL) Date Value 01/11/2023 18 10/26/2019 18 Anion Gap Date Value 01/11/2023 11 mmol/L 10/26/2019 11 Calcium (mg/dL) Date Value 10/26/2019 9.5 Calcium, Total (mg/dL) Date Value 01/11/2023 10.4 Protein, Total (g/dL) Date Value 03/23/2023 7.4 Albumin (g/dL) Date Value 03/23/2023 4.5 Bilirubin, Total (mg/dL) Date Value 03/23/2023 0.3 Alkaline Phosphatase (U/L) Date Value 03/23/2023 51 AST (U/L) Date Value 03/23/2023 31 ALT (U/L) Date Value 03/23/2023 24 CBC: Hemoglobin (g/dL) Date Value 11/27/2012 12.5 Hematocrit (%) Date Value 11/27/2012 39.1 WBC (thou/cmm) Date Value 11/27/2012 8.0 Platelet Count (thou/cmm) Date Value 11/27/2012 341 TSH (mIU/L) Date Value 01/11/2023 1.010 Vitamin D 25 Hydroxy (ng/mL) Date Value 02/25/2022 30.1 Plan Assessment and Plan Ms. Constanza Hernandez is a 77 year old year old lady referred for Comprehensive Geriatrics Assessment, as referred for evaluation of glucose levels Workup for hypoglycemia: In the setting of increased urination, increased hunger, weight loss despite normal diet - ASSESSMENT/PLAN: 1. Hypoglycemia - ICD9: 251.2, ICD10: E16.2 (primary diagnosis) Patient was describing experiences of hypoglycemia and increased sugar cravings. Family history of diabetes type II. - INSULIN ANTIBODY BLD - C-PEPTIDE BLD - HGB A1C - AMYLASE BLD - LIPASE BLD - INSULIN, FREE 2. Epigastric pain - ICD9: 789.06, ICD10: R10.13 - CT ABD/PEL WO IVCON - INSULIN ANTIBODY BLD - C-PEPTIDE BLD - AMYLASE BLD - LIPASE BLD - HEPATIC FUNCTION PNL Ordered/Reviewed serologies for potentially reversible etiologies for memory impairment: Vitamin B12, TFTs, Vitamin D MRI brain with volumetric scans Encouraged Blue Zones lifestyle principles: I) Moderate aerobic exercise - 30 minutes x 3 days a week (atleast) II) Mediterranean diet III) Increased socialization IV) Sense of purpose/ [place] V) Reading, crossword puzzles, word jumbles, Soduko ) Applications such as Lumosity , CogniFit , Memorado and Impulse Return for Refer back to PCP, No follow up needed. Thank you very much for the opportunity to participate in the care of your patient. Total time in direct patient contact = 60 min. Greater than 50% of the time was spent in counseling and/or coordination of care. LINSEY MATTHEW MD [facility]IC[facility] Discussed the above with the patient using shared decision making. The patient is in agreement with the diagnostic and treatment plans. This note was partially generated using Prepair voice recognition system, and there may be some incorrect words, spellings, and punctuation that were not noted in checking the note before saving. documented in this encounter [facility] 03-04-2023 Miscellaneous Notes Pharmacy faxed requesting the following refill Refill(s) Requested: Requested Prescriptions Pending Prescriptions Disp Refills amLODIPine (NORVASC) 10 mg tablet 90 tablet 3 Sig: Take 1 tablet by mouth once daily. atorvastatin (LIPITOR) 40 mg tablet 90 tablet 3 Sig: Take 1 tablet by mouth once daily. ALLERGIES Allergen Reactions Penicillins Rash (home) [phone] (cell) Last Office Visit Date: 01/11/2023 Last [facility] Visit: 11/18/2022 Future Appointment: Visit date not found The patients preferred pharmacy has been captured for this encounter? yes Request is for script(s) to be escript to pharmacy. Rachana Claudio LPN documented in this encounter [facility] 02-01-2023 Miscellaneous Notes Appointment 03/23/23 Appointment reminder sent to home address. Lucy Avila February 01, 2023 5:29 PM documented in this encounter [facility] 01-20-2023 Miscellaneous Notes 01/18/2023: LVM for patients daughter to please call back and make an appointment 01/18/23 tm. Confirmation #[id number] documented in this encounter [facility] 01-20-2023 Miscellaneous Notes Faxed to [facility] home respiratory. Ayesha Peralta, New Product Trainer January 20, 2023 9:50 AM I sent an order for Home O2 renewal. Please check if it's done accordingly. Thanks, Images from the original note were not included. Please route telephone encounter to the Clerical Pool ([facility] Clerical Pool) Sebas Torre MD [facility] Clerical Pool 22 hours ago (10:24 AM) ALEX Does a home O2 renewal Rx require F2F? If so, Leon TECHNICIAN TRAINEE would likely have to order because she most recently saw the patient. Thanks! Home Oxygen Renewal will require F2F, and new orders. Renata Garcia, Enterprise Application Administrator January 14, 2023 8:54 AM documented in this encounter [facility] 01-19-2023 Note HNO ID: [id number] Author: rBittany Quintero APRN.DANAE Service: ? Author Type: Nurse Practitioner Type: Progress Notes Filed: 01/19/2023 8:18 AM Note Text: Renewal of Home O2 Therapy for -patient's Advanced COPD. [facility] 01-11-2023 Note HNO ID: [id number] Author: Brittany Quintero APRN.CNMT Service: ? Author Type: Nurse Practitioner Type: Progress Notes Filed: 01/11/2023 5:19 PM Note Text: Brittany Quintero APRN [facility] Date of Evaluation: 01/11/2023 Patient Name: Constanza Hernandez : 1945 Chief Complaint: Patient presents with: Rx Refills SUBJECTIVE HPI Ms. Hernandez is a 77 year old female with medical history of CHF COPD hypertension and hypothyroidism who presents for medication refill. Patient presents with her daughter. She has her oxygen tank with her. Chronically on 3 L of oxygen. She has no acute complaints. She lives with her daughter. She what watches TV and takes care of herself. Family support includes grandchildren, and other children. She reports fair appetite. Today she forgot to take her blood pressure medications. It appears that she is managing her medications. She denies chest pain, fevers/chills, headaches, vision changes, cough, dyspnea, abdominal pain, N/V/D and/or dysuria. Denies history of depression/ anxiety. Denies history or recent suicidal or homicidal ideation. Review of Systems Constitutional: Positive for appetite change and unexpected weight change. Negative for activity change, chills, fatigue and fever. HENT: Negative for congestion, ear pain, rhinorrhea, sinus pressure, sinus pain, sore throat, trouble swallowing and voice change. Eyes: Negative for visual disturbance. Respiratory: Positive for shortness of breath. Negative for apnea, cough, choking, chest tightness, wheezing and stridor. Cardiovascular: Negative for chest pain, palpitations and leg swelling. Gastrointestinal: Negative for abdominal distention, abdominal pain, blood in stool, constipation, diarrhea, nausea and rectal pain. Endocrine: Negative for cold intolerance, heat intolerance, polydipsia, polyphagia and polyuria. Genitourinary: Negative for decreased urine volume, difficulty urinating, dysuria, flank pain, frequency, genital sores, hematuria and pelvic pain. Musculoskeletal: Positive for gait problem. Negative for arthralgias, back pain, joint swelling, myalgias, neck pain and neck stiffness. Skin: Negative for rash and wound. Neurological: Positive for weakness. Negative for dizziness, tremors, syncope, speech difficulty, light-headedness, numbness and headaches. Hematological: Negative for adenopathy. Does not bruise/bleed easily. Psychiatric/Behavioral: Negative for behavioral problems, confusion, decreased concentration, dysphoric mood, hallucinations, self-injury, sleep disturbance and suicidal ideas. The patient is not nervous/anxious and is not hyperactive. PAST MEDICAL HISTORY Diagnosis Date Congestive heart failure (HCC) COPD (chronic obstructive pulmonary disease) (HCC) Hypertension Hypothyroidism PAST SURGICAL HISTORY Procedure Laterality Date THYROID SURGERY HX partial thyroidectomy FAMILY HISTORY Problem Relation Age of Onset Heart Attack Mother other (blood pressure) Mother other (blood pressure) Father Social History Tobacco Use Smoking status: Former Types: Cigarettes Smokeless tobacco: Never Tobacco comments: quit in 2004 Substance Use Topics Alcohol use: Not Currently Drug use: Not Currently Current Outpatient Medications Medication Sig Dispense Refill amLODIPine (NORVASC) 10 mg tablet Take 1 tablet by mouth once daily. 90 tablet 3 atorvastatin (LIPITOR) 40 mg tablet Take 1 tablet by mouth once daily. 90 tablet 3 tiotropium bromide (SPIRIVA RESPIMAT) 1.25 mcg/actuation mist Inhale 2 Puffs as instructed once daily. 48 g 0 levalbuterol tartrate HFA 45 mcg/actuation inhaler Inhale 1-2 Puffs as instructed every 6 hours as needed for wheezing/shortness of breath. 1 Inhaler 3 enalapril (VASOTEC) 20 mg tablet Take 1 tablet by mouth once daily. 90 tablet 1 fluticasone-salmeterol HFA (ADVAIR HFA) 230-21 mcg/actuation inhaler Inhale 2 Puffs as instructed twice daily. 144 g 0 levothyroxine (SYNTHROID) 88 mcg tablet Take 1 tablet by mouth once daily. 90 tablet 3 Miscellaneous Medical Supply 1 Each as needed. Quad cane 1 Each 0 chlorthalidone (HYGROTON) 25 mg tablet Take 0.5 tablets by mouth once daily. 45 tablet 1 No current facility-administered medications for this visit. I have confirmed and edited as necessary the chief complaint, medications, past medical, family and social histories obtained by others. OBJECTIVE BP 173/84 Pulse 103 Temp 97.3 Resp 20 Ht 5' 5 (1.65m) Wt 96 lb (43.5kg) SpO2 97[3Lo2]% BMI 15.98 kg/(m2). Last BP 01/11/23 : 173/84 02/25/22 : 149/75 07/28/21 : 163/61 Last Wt 01/11/23 : 43.5 kg (96 lb) 02/25/22 : 47.2 kg (104 lb) 07/28/21 : 45.4 kg (100 lb) Physical Exam Vitals reviewed. Exam conducted with a piggyback clerk present. Constitutional: General: She is not in acute distress. Appearance: Normal appearance. She is not to (more content not included)... [facility] 11-29-2022 Miscellaneous Notes No Show Documentation Constanza Hernandez no showed for an appointment on 11/29/22 with Sebas Torre MD at 10:20 AM. She was scheduled for - Follow Up/ Medication Refill. I called and spoke with the patient regarding her missed appointment. Constanza stated the reason that she missed her appointment was because I called and left voicemail for the patient regarding her missed appointment. Resources discussed/offered to patient: N/A No show determined to be fault of patient: Yes This is the patients first no show in the last 12 months. Patient was rescheduled for N/A. Letter mailed : Yes Is this the Third or Fourth No Show ? No Yi Aguiar November 29, 2022 2:05 PM documented in this encounter [facility] 11-18-2022 Note HNO ID: [id number] Author: Iam Vital APRN.CNMT Service: ? Author Type: Nurse Practitioner Type: Progress Notes Filed: 11/18/2022 1:55 PM Note Text: AMBULATORY TELEPHONE VISIT Constanza Hernandez has consented to this telephone encounter. Persons Present: patient Chief Complaint/Reason: COVID-19 positive HPI: Patient is 76 yo female, with history of COPD, HTN, hypothyroidism, who presents for COVID-19 infection. She started with sore throat and fatigue that started 1-1.5 weeks ago. Has occasional cough and nasal congestion. Her grandson was positive so she decided to get tested. Took home antigen test on 11/17/22 which was positive. Has had COVID-19 vaccine and booster. Last Creat level was 0.80 on 04/16/2021. On Spiriva and Advair for COPD. She rarely uses rescue inhaler. Denies any decreased appetite, nausea, vomiting, diarrhea, or loss of taste or smell. Denies any worsening SOB or wheezing. She is drinking plenty of fluids and eating without any issues. She has not tried any OTC medications. She is feeling better over the last few days. Denies any fevers in last 24 hours. Symptoms include: Fever (?100.4F): No or Chills: No Cough: Yes Shortness of breath: No or Difficulty breathing: No Fatigue: Yes Muscle aches: No Headache: No New loss of smell or taste: No Sore throat: Yes Nasal congestion: Yes or Rhinorrhea: Yes Nausea: No or Vomiting: No Diarrhea: No Data Reviewed: Most recent labs Assessment: (U07.1) COVID-19 virus infection (primary encounter diagnosis) Plan: - Discussed symptom monitoring and supportive care - Discussed isolation for 5 days which she completed and 5 days of wearing mask around people. - Red flag symptoms requiring follow up discussed - Patient does not qualify for Paxlovid treatment due to >5 days of symptoms Nirmatrelvir/Ritonavir (Paxlovid) Eligibility and Patient Discussion [facility] Formulary Restriction Criteria: Adult outpatients 18 years and older with ALL of the following: [x] Patient has positive SARS-COV-2 viral test (PCR or antigen test) during current illness [] Patient has symptoms for 5 days or less [] Not requiring hospitalization at any time for management of COVID-19 [] Not requiring supplemental oxygen or a change in baseline supplemental oxygen [] Not utilized for pre-exposure or post-exposure prophylaxis for prevention of COVID-19 [] Patient does not have severe renal impairment (eGFR < 30 mL/min) or severe hepatic impairment (Child-Manley Class C) [] Meeting at least one of the criteria for high risk of progression to severe COVID-19: [x] Age over 65 years [] Cancer [] Chronic kidney disease [] Chronic liver disease [x] Chronic lung diseases, including cystic fibrosis [] Dementia or other neurological conditions [] Diabetes (type 1 or type 2) [] Disabilities, including Down syndrome and neurodevelopmental disorders [] Heart conditions [] HIV infection [] Immunocompromised state [] Mental health conditions [] Medical related technological dependence (tracheostomy, gastrostomy, or positive pressure ventilation (not related to COVID) [] Overweight and obesity (BMI greater or equal to 25 for adults) [] Physical inactivity [] [] Sickle cell disease or thalassemia [] Smoking, current or former [] Solid organ or blood stem cell transplant [] Stroke or cerebrovascular disease [] Substance use disorders [] Tuberculosis [] People from racial and ethnic minority groups Criteria above are met: No. The patient does not meet criteria for oral COVID-19 therapeutic at this time. Total Time Spent: Telemedicine Evaluation for COVID-19 Infection Audio only was used for evaluation of this patient. Location of patient: [place] I spent 13 minutes in the telephone visit with patient. Iam Vital APRN.[facility] 11-18-2022 History of Present illness Narrative AMBULATORY TELEPHONE VISIT Constanza Hernandez has consented to this telephone encounter. Persons Present: patient Chief Complaint/Reason: COVID-19 positive HPI: Patient is 76 yo female, with history of COPD, HTN, hypothyroidism, who presents for COVID-19 infection. She started with sore throat and fatigue that started 1-1.5 weeks ago. Has occasional cough and nasal congestion. Her grandson was positive so she decided to get tested. Took home antigen test on 11/17/22 which was positive. Has had COVID-19 vaccine and booster. Last Creat level was 0.80 on 04/16/2021. On Spiriva and Advair for COPD. She rarely uses rescue inhaler. Denies any decreased appetite, nausea, vomiting, diarrhea, or loss of taste or smell. Denies any worsening SOB or wheezing. She is drinking plenty of fluids and eating without any issues. She has not tried any OTC medications. She is feeling better over the last few days. Denies any fevers in last 24 hours. Symptoms include: Fever (?100.4F): No or Chills: No Cough: Yes Shortness of breath: No or Difficulty breathing: No Fatigue: Yes Muscle aches: No Headache: No New loss of smell or taste: No Sore throat: Yes Nasal congestion: Yes or Rhinorrhea: Yes Nausea: No or Vomiting: No Diarrhea: No Data Reviewed: Most recent labs Assessment: (U07.1) COVID-19 virus infection (primary encounter diagnosis) Plan: - Discussed symptom monitoring and supportive care - Discussed isolation for 5 days which she completed and 5 days of wearing mask around people. - Red flag symptoms requiring follow up discussed - Patient does not qualify for Paxlovid treatment due to >5 days of symptoms Nirmatrelvir/Ritonavir (Paxlovid) Eligibility and Patient Discussion [facility] Formulary Restriction Criteria: Adult outpatients 18 years and older with ALL of the following: [x] Patient has positive SARS-COV-2 viral test (PCR or antigen test) during current illness [] Patient has symptoms for 5 days or less [] Not requiring hospitalization at any time for management of COVID-19 [] Not requiring supplemental oxygen or a change in baseline supplemental oxygen [] Not utilized for pre-exposure or post-exposure prophylaxis for prevention of COVID-19 [] Patient does not have severe renal impairment (eGFR < 30 mL/min) or severe hepatic impairment (Child-Manley Class C) [] Meeting at least one of the criteria for high risk of progression to severe COVID-19: [x] Age over 65 years [] Cancer [] Chronic kidney disease [] Chronic liver disease [x] Chronic lung diseases, including cystic fibrosis [] Dementia or other neurological conditions [] Diabetes (type 1 or type 2) [] Disabilities, including Down syndrome and neurodevelopmental disorders [] Heart conditions [] HIV infection [] Immunocompromised state [] Mental health conditions [] Medical related technological dependence (tracheostomy, gastrostomy, or positive pressure ventilation (not related to COVID) [] Overweight and obesity (BMI greater or equal to 25 for adults) [] Physical inactivity [] [] Sickle cell disease or thalassemia [] Smoking, current or former [] Solid organ or blood stem cell transplant [] Stroke or cerebrovascular disease [] Substance use disorders [] Tuberculosis [] People from racial and ethnic minority groups Criteria above are met: No. The patient does not meet criteria for oral COVID-19 therapeutic at this time. Total Time Spent: Telemedicine Evaluation for COVID-19 Infection Audio only was used for evaluation of this patient. Location of patient: [facility] spent 13 minutes in the telephone visit with patient. Iam Vital APRN.CNP documented in this encounter [facility] 11-18-2022 Miscellaneous Notes Patient scheduled for provider phone call visit to discuss starting Paxlovid. Renata Garcia, Enterprise Application Administrator November 18, 2022 12:17 PM Please route telephone encounter to the Clerical Pool ([facility] Clerical Pool) Staff message received Patient tested positive for Covid on 11/17 she would like to discuss treatment options. Message left for the patient to call the office back to schedule a provider phone call appointment. Eloy West, New Product Trainer November 18, 2022 9:26 AM Asia Esp[facility] Triage Pool Patient has been identified by name and Date of (Y/N): y Patient: Constanza Hernandez Date of : 1945 Provider for this encounter: Heather Saenz DO Reason for the call/escalation: tested positive for COVID on 11/17--inquiring if a candidate for the antibiotic Was Patient Referred to [facility]/Seek Emergency Treatment (Y/N): no Did Patient Agree (Y/N): n/a Was An Attempt Made To Transfer The Patient To The Office (Y/N): no Were You Able To Reach Someone At The Office (Y/N): n/a If Yes - Patient Was Transferred To (Caregivers Name): n/a If No - Which [facility] Leadership Language Asst Did You Speak With Regarding This Patient: n/a Was an appointment scheduled (Y/N): no Reason patient was requesting visit (RFV/signs and symptoms/diagnosis) : tested positive for COVID on 11/17--inquiring if a candidate for the antibiotic Person calling if other than patient: Aria(daughter) Return call to if other than patient: Aria Best contact number: [phone] Thank you, Asia Esparza November 18, 2022 9:00 AM documented in this encounter [facility] 07-23-2022 Miscellaneous Notes Pharmacy faxed requesting the following refill Refill(s) Requested: Requested Prescriptions Pending Prescriptions Disp Refills chlorthalidone (HYGROTON) 25 mg tablet 45 tablet 1 Sig: Take 0.5 tablets by mouth once daily. enalapril (VASOTEC) 20 mg tablet 90 tablet 1 Sig: Take 1 tablet by mouth once daily. ALLERGIES Allergen Reactions Penicillins Rash (home) [phone] (cell) Last Office Visit Date: 02/25/2022 Last Distance Health Visit: Visit date not found Future Appointment: Visit date not found The patients preferred pharmacy has been captured for this encounter? yes Request is for script(s) to be escript to pharmacy. Jennifer Kirby documented in this encounter [facility] 02-26-2022 Miscellaneous Notes Add on test has resulted- please advise Odalis Simpson MA 02/26/22 2:55 Call placed to pt- no answer, left vm for return call to the office Pt order has been faxed to lab- will await result Odalis Simpson MA 02/26/22 1:46 Reviewed patient's recent blood work. Please call patient and update her of the results: Thyroid levels are fine. Continue current dose of levothyroxine. Free T4 is 0.1 unit above normal range, so will continue to monitor next year. Not an actionable finding at this point. Calcium is very mildly elevated, despite Vitamin D levels being on lower end of normal range. Will check parathyroid gland function, and order as reflex lab to be done on already collected blood. If that is unable to be obtained, patient will need to return to a [facility] lab location to have level drawn. Thank you! Sebas Torre MD February 26, 2022 12:52 PM documented in this encounter [facility] 02-25-2022 History of Present illness Narrative Attending Note I discussed with resident. The patient was not seen or examined by the attending. I reviewed the resident's note. I agree with the resident's assessment and plan unless otherwise noted. Signature: Meli Lanier MD Date: 02/25/2022. Time: 9:33 AM Images from the original note were not included. [facility] Sebas Torre MD ASSESSMENT/PLAN: 1. Advanced COPD (HCC) - ICD9: 496, ICD10: J44.9 (primary diagnosis) - continue inhalers as before; required refills but some had to be changed due to formulary issues - FLUTICASONE PROPIONATE 230 MCG-SALMETEROL 21 MCG/ACTUATION HFA INHALER - SPIRIVA RESPIMAT 1.25 MCG/ACTUATION SOLUTION FOR INHALATION - LEVALBUTEROL HFA 45 MCG/ACTUATION AEROSOL INHALER - SPIROMETRY - BASELINE AND POST DILATOR 2. Essential hypertension - ICD9: 401.9, ICD10: I10 - suboptimal control - did not take medications today, will when she gets home - Recommended regular aerobic exercise. - Goal of BP <140/90 - AMLODIPINE 10 MG TABLET - ATORVASTATIN 40 MG TABLET 3. Bilateral lower extremity edema - ICD9: 782.3, ICD10: R60.0 - COMPRESSION STOCKINGS 4. Hypothyroidism, unspecified type - ICD9: 244.9, ICD10: E03.9 - Instructed patient on importance of taking on an empty stomach either first thing in the morning or at bedtime. - check TSH and free T4 today - can tweak synthroid dose if necessary - LEVOTHYROXINE 88 MCG TABLET - TSH BLD - T4 FREE/FREE THYROX 5. Hypercalcemia - ICD9: 275.42, ICD10: E83.52 - mild hypercalcemia noted on labs in April - will repeat today, assess if need to make changes to medication/supplement regimen - VITAMIN D 25 HYDROXY - CALCIUM TOTAL BLD - CALCIUM IONIZED B Sebas Torre MD SUBJECTIVE: Constanza Hernandez is a 76 year old year old female here today for interval follow up. Pt is a 76yo female with PMH including CHF, advanced COPD, hypothyroidism, and HTN who presents to clinic today for interval follow up of leg swelling and COPD. Reports she is feeling mostly well, having recurrence of lower leg edema. Now consenting to compression stockings, RX sent. Taking all inhalers as prescribed, feeling well, has no other concerns, questions, or new/worsening symptoms. PAST MEDICAL HISTORY Diagnosis Date Congestive heart failure (HCC) COPD (chronic obstructive pulmonary disease) (HCC) Hypertension Hypothyroidism PAST SURGICAL HISTORY Procedure Laterality Date THYROID SURGERY HX partial thyroidectomy Social History Tobacco Use Smoking status: Former Smoker Types: Cigarettes Smokeless tobacco: Never Used Tobacco comment: quit in 2004 Substance Use Topics Alcohol use: Not Currently Drug use: Not Currently FAMILY HISTORY Problem Relation Age of Onset Heart Attack Mother other (blood pressure) Mother other (blood pressure) Father There are no active hospital problems to display for this patient. PAIN EVALUATION No data found in the last 1 encounters. ALLERGIES Allergen Reactions Penicillins Rash Medication List prior to visit Current Outpatient Medications on File Prior to Visit Medication Sig chlorthalidone (HYGROTON) 25 mg tablet Take 0.5 tablets by mouth once daily. enalapril (VASOTEC) 20 mg tablet Take 1 tablet by mouth once daily. tiotropium bromide (SPIRIVA RESPIMAT) 1.25 mcg/actuation mist Inhale 2 Puffs as instructed once daily. amLODIPine (NORVASC) 10 mg tablet Take 1 tablet by mouth once daily. atorvastatin (LIPITOR) 40 mg tablet Take 1 tablet by mouth once daily. levothyroxine (SYNTHROID) 88 mcg tablet Take 1 tablet by mouth once daily. albuterol HFA (VENTOLIN HFA) 90 mcg/actuation inhaler Inhale 2 Puffs as instructed every 6 hours as needed for wheezing/shortness of breath. fluticasone-salmeterol HFA (ADVAIR HFA) 115-21 mcg/actuation inhaler Inhale 2 Puffs as instructed twice daily. Current Facility-Administered Medications on File Prior to Visit Medication perflutren lipid microspheres 1.3 mL in NaCl (PF) 0.9% 10 mL injection (DEFINITY) sodium chloride 0.9 % (flush) 10 mL (BD POSIFLUSH) I have confirmed and edited as necessary the chief complaint, medications, past medical, family and social histories. Review of Systems Constitutional: Negative for activity change, appetite change, chills, diaphoresis, fatigue and fever. HENT: Negative. Eyes: Negative. Respiratory: Positive for shortness of breath (chronic). Negative for cough, chest tightness, wheezing and stridor. Cardiovascular: Negative for chest pain, palpitations and leg swelling. Gastrointestinal: Negative for abdominal pain, constipation, diarrhea, nausea and vomiting. Endocrine: Negative for cold intolerance, heat intolerance, polydipsia, polyphagia and polyuria. Genitourinary: Negative for difficulty urinating, dysuria, hematuria and urgency. Musculoskeletal: Negative for arthralgias, back pain and joint swelling. Skin: Negative. Allergic/Immunologic: Negative. Neurological: Negative for syncope, numbness and headaches. Hematological: Bruises/bleeds easily. Psychiatric/Behavioral: Negative for agitation, decreased concentration, sleep disturbance and suicidal ideas. The patient is not nervous/anxious. OBJECTIVE: BP 149/75 (BP Site: Left Arm) Pulse 93 Temp 36.7 C (98.1 F) Resp 20 Ht 165.1 cm (5' 5 ) Wt 47.2 kg (104 lb) SpO2 97% BMI 17.31 kg/m Body mass index is 17.31 kg/m . Physical Exam Vitals reviewed. Constitutional: General: She is not in acute distress. Appearance: Normal appearance. She is not ill-appearing, toxic-appearing or diaphoretic. HENT: Head: Normocephalic and atraumatic. Mouth/Throat: Mouth: Mucous membranes are moist. Pharynx: Oropharynx is clear. No oropharyngeal exudate or posterior oropharyngeal erythema. Eyes: General: No scleral icterus. Extraocular Movements: Extraocular movements intact. Pupils: Pupils are equal, round, and reactive to light. Cardiovascular: Rate and Rhythm: Normal rate and regular rhythm. Pulses: Normal pulses. Heart sounds: Normal heart sounds. No murmur heard. No friction rub. No gallop. Pulmonary: Effort: Prolonged expiration and retractions present. No accessory muscle usage or respiratory distress. Breath sounds: Decreased air movement present. No wheezing, rhonchi or rales. Comments: Increased AP diameter of chest Chest: Chest wall: No tenderness. Abdominal: General: Bowel sounds are normal. There is no distension. Palpations: Abdomen is soft. Tenderness: There is no abdominal tenderness. There is no guarding. Musculoskeletal: General: No swelling, tenderness or deformity. Normal range of motion. Cervical back: Normal range of motion. No tenderness. Right lower leg: No edema. Left lower leg: No edema. Lymphadenopathy: Cervical: No cervical adenopathy. Skin: General: Skin is warm and dry. Capillary Refill: Capillary refill takes less than 2 seconds. Coloration: Skin is not jaundiced. Findings: No bruising. Neurological: General: No focal deficit present. Mental Status: She is alert and oriented to person, place, and time. BP 149/75 Pulse 93 Temp 98.1 Resp 20 Ht 5' 5 (1.65m) Wt 104 lb (47.2kg) SpO2 97[3L O2]% BMI 17.31 kg/(m^2). Last BP 02/25/22 : 149/75 07/28/21 : 163/61 04/16/21 : 144/60 Last Wt 02/25/22 : 47.2 kg (104 lb) 07/28/21 : 45.4 kg (100 lb) 04/16/21 : 46.9 kg (103 lb 6.4 oz) Visit Diagnoses (J44.9) Advanced COPD (HCC) (primary encounter diagnosis) (I10) Essential hypertension (R60.0) Bilateral lower extremity edema (E03.9) Hypothyroidism, unspecified type (E83.52) Hypercalcemia Medications Discontinued During This Encounter Medication Reason amLODIPine (NORVASC) 10 mg tablet atorvastatin (LIPITOR) 40 mg tablet levothyroxine (SYNTHROID) 88 mcg tablet albuterol HFA (VENTOLIN HFA) 90 mcg/actuation inhaler fluticasone-salmeterol HFA (ADVAIR HFA) 115-21 mcg/actuation inhaler tiotropium bromide (SPIRIVA RESPIMAT) 1.25 mcg/actuation mist Discussed the above with the patient and my preceptor using shared decision-making. The patient is in agreement with the diagnostic and treatment plans. Results for orders placed or performed in visit on 07/22/21 LVEF ECHO Result Value Ref Range LV Ejection Fraction 75 % Return in about 4 months (around 06/28/2022). This note was partially generated using [employer] voice recognition system, and there may be some incorrect words, spellings, and punctuation that were not noted in checking the note before saving. Sebas Torre MD, signed on February 25, 2022 9:04 AM documented in this encounter [facility] 01-27-2022 Miscellaneous Notes Patient MyChart message requesting the following refill Refill(s) Requested: Pending Prescriptions Disp Refills CHLORTHALIDONE 25 MG TABLET 45 tablet 1 Sig: Take 0.5 tablets by mouth once daily. [place]: No ENALAPRIL MALEATE 20 MG TABLET 90 tablet 1 Sig: Take 1 tablet by mouth once daily. [place]: No ALLERGIES Allergen Reactions Penicillins Rash (home) [phone] (cell) Last Office Visit Date: 07/28/2021 Last [facility] Visit: Visit date not found Future Appointment: 02/25/2022 The patients preferred pharmacy has been captured for this encounter? yes Request is for script(s) to be escript to pharmacy. Claudia Rosales LPN documented in this encounter [facility] documented [facility]* Diagnosis Advanced COPD (HCC)- Primary Essential hypertension Unspecified essential hypertension Bilateral lower extremity edema Edema Hypothyroidism, unspecified type Hypercalcemia documented in this encounter [facility] note* Diagnosis Hypercalcemia- Primary documented in this encounter [facility] note* Diagnosis COVID-19 virus infection- Primary documented in this encounter [facility] note* Diagnosis Advanced COPD (HCC)- Primary documented in this encounter [facility] note* Diagnosis Essential hypertension Unspecified essential hypertension documented in this encounter [facility] note* Diagnosis Epigastric pain Abdominal pain, epigastric documented in this encounter [facility] note* Diagnosis Hypoglycemia- Primary Hypoglycemia, unspecified Epigastric pain Abdominal pain, epigastric documented in this encounter [facility] note* Diagnosis Acute rhinosinusitis- Primary Acute sinusitis, unspecified [facility]* Diagnosis Essential hypertension Unspecified essential hypertension [facility] Outpatient Procedure (Routine) - Pending Review Specialty Diagnoses / Procedures Referred By De t Referred To Contact [facility] Diagnoses Advanced COPD (HCC) Procedures SPIROMETRY - BASELINE AND POST DILATOR BRNCDILAT RSPSE SPMTRY PRE&POST-BRNCDILAT ADMN Matthew Blount MD [address] [address] [facility] [place] [address] [place] [address] Referral ID Status Reason Start Date Expiration Date Visits Requested Visits Authorized [id number] Pending Review Auto-Generat ed Referral 02/25/2022 03/27/2023 1 1 [facility] Summary Purpose Family History No Family History Records FoundNo Family History Records FoundNo Family History Records Found Advance Directives Documents on File Type Date Recorded 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 Advance Directive(s) 10/26/2019 11:08 AM Documents on File Type Date Recorded 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 Advance Directive(s) 12/15/2020 1:35 PM Advance Directive(s) 10/26/2019 11:08 AM Documents on File Type Date Recorded 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 Advance Directive(s) 12/15/2020 1:35 PM Advance Directive(s) 10/26/2019 11:08 AM Reason for Referral Specialty Diagnoses / Procedures Referred By De t Referred To Contact CT IMAGING Diagnoses Epigastric pain Procedures CT ABD/PEL WO IVCON CT ABD & PELVIS W/O CONTRAST Linsey Matthew MD [address] [place] [address] Ct Imaging Referral ID Status Reason Start Date Expiration Date V isits Requested Visits Authorized [id number] Closed Auto-Generate d Referral 03/23/2023 04/21/2024 1 1 Additional Source Comments INFORMATION SOURCE (unrecogn ized section and content) DATE CREATED AUTHOR AUTHOR'S ORGANIZ ATION 05/11/2023 [facility] DATE CREATED AUTHOR AUTHOR'S ORGANIZ ATION 07/21/2023 [facility] Source Comments (unrecognize d section and content) In the event this informatio n is protected by the Federal Confidentiality of Alcohol and Drug Abuse Patient Records regulations: The Federal rules restrict any use of the information to criminally investigate or prosecute any alcohol or drug abuse patient.[facility] the event this information is protected by the Federal Confidentiality of Alcohol and Drug Abuse Patient Records regulations: The Federal rules restrict any use of the information to criminally investigate or prosecute any alcohol or drug abuse patient.[facility] the event this information is protected by the Federal Confidentiality of Alcohol and Drug Abuse Patient Records regulations: The Federal rules restrict any use of the information to criminally investigate or prosecute any alcohol or drug abuse patient.[facility] the event this information is protected by the Federal Confidentiality of Alcohol and Drug Abuse Patient Records regulations: The Federal rules restrict any use of the information to criminally investigate or prosecute any alcohol or drug abuse patient.[facility] the event this information is protected by the Federal Confidentiality of Alcohol and Drug Abuse Patient Records regulations: The Federal rules restrict any use of the information to criminally investigate or prosecute any alcohol or drug abuse patient.[facility] the event this information is protected by the Federal Confidentiality of Alcohol and Drug Abuse Patient Records regulations: The Federal rules restrict any use of the information to criminally investigate or prosecute any alcohol or drug abuse patient.[facility] the event this information is protected by the Federal Confidentiality of Alcohol and Drug Abuse Patient Records regulations: The Federal rules restrict any use of the information to criminally investigate or prosecute any alcohol or drug abuse patient.[facility] the event this information is protected by the Federal Confidentiality of Alcohol and Drug Abuse Patient Records regulations: The Federal rules restrict any use of the information to criminally investigate or prosecute any alcohol or drug abuse patient.[facility] the event this information is protected by the Federal Confidentiality of Alcohol and Drug Abuse Patient Records regulations: The Federal rules restrict any use of the information to criminally investigate or prosecute any alcohol or drug abuse patient.[facility] the event this information is protected by the Federal Confidentiality of Alcohol and Drug Abuse Patient Records regulations: The Federal rules restrict any use of the information to criminally investigate or prosecute any alcohol or drug abuse patient.[facility] the event this information is protected by the Federal Confidentiality of Alcohol and Drug Abuse Patient Records regulations: The Federal rules restrict any use of the information to criminally investigate or prosecute any alcohol or drug abuse patient.[facility] the event this information is protected by the Federal Confidentiality of Alcohol and Drug Abuse Patient Records regulations: The Federal rules restrict any use of the information to criminally investigate or prosecute any alcohol or drug abuse patient.[facility] the event this information is protected by the Federal Confidentiality of Alcohol and Drug Abuse Patient Records regulations: The Federal rules restrict any use of the information to criminally investigate or prosecute any alcohol or drug abuse patient.[facility] the event this information is protected by the Federal Confidentiality of Alcohol and Drug Abuse Patient Records regulations: The Federal rules restrict any use of the information to criminally investigate or prosecute any alcohol or drug abuse patient.[facility] the event this information is protected by the Federal Confidentiality of Alcohol and Drug Abuse Patient Records regulations: The Federal rules restrict any use of the information to criminally investigate or prosecute any alcohol or drug abuse patient.[facility] the event this information is protected by the Federal Confidentiality of Alcohol and Drug Abuse Patient Records regulations: The Federal rules restrict any use of the information to criminally investigate or prosecute any alcohol or drug abuse patient.[facility] the event this information is protected by the Federal Confidentiality of Alcohol and Drug Abuse Patient Records regulations: The Federal rules restrict any use of the information to criminally investigate or prosecute any alcohol or drug abuse patient.[facility] the event this information is protected by the Federal Confidentiality of Alcohol and Drug Abuse Patient Records regulations: The Federal rules restrict any use of the information to criminally investigate or prosecute any alcohol or drug abuse patient.[facility] the event this information is protected by the Federal Confidentiality of Alcohol and Drug Abuse Patient Records regulations: The Federal rules restrict any use of the information to criminally investigate or prosecute any alcohol or drug abuse patient.[facility] the event this information is protected by the Federal Confidentiality of Alcohol and Drug Abuse Patient Records regulations: The Federal rules restrict any use of the information to criminally investigate or prosecute any alcohol or drug abuse patient.[facility] the event this information is protected by the Federal Confidentiality of Alcohol and Drug Abuse Patient Records regulations: The Federal rules restrict any use of the information to criminally investigate or prosecute any alcohol or drug abuse patient.[facility] the event this information is protected by the Federal Confidentiality of Alcohol and Drug Abuse Patient Records regulations: The Federal rules restrict any use of the information to criminally investigate or prosecute any alcohol or drug abuse patient.[facility] the event this information is protected by the Federal Confidentiality of Alcohol and Drug Abuse Patient Records regulations: The Federal rules restrict any use of the information to criminally investigate or prosecute any alcohol or drug abuse patient.[facility] Reason for Visit (unrecogniz ed section and content) Reason Comments Follow Up Reason Comments Results Reason Onset Date Comments Refill Request 07/22/2022 chlorthalidone,v asotec Reason Comments Appointment Patient Question Covid positive, clemencia tment Reason Comments Covid Positive Positive on 11/17/22 and symptoms started 1-1.5 weeks ago Reason Comments No Show No Show #1 Reason Comments Referral Information Consult to Geriatri Reason Comments Consult [place] Reason Onset Date Comments Refill Request 03/04/2023 amlodpine, atorv astatin Reason Comments Orders CT abdomen/pelvis w/ o oral & IV contrast Specialty Diagnoses / Procedures Referred By De curry Referred To Contact CT IMAGING Diagnoses Epigastric pain Procedures CT ABD/PEL WO IVCON CT ABD & PELVIS W/O CONTRAST Linsey Matthew MD [address] [place] [address] Ct Imaging Referral ID Status Reason Start Date Expiration Date V isits Requested Visits Authorized [id number] Closed Auto-Generate d Referral 03/23/2023 04/21/2024 1 1 Reason Comments Depression Diabetes Reason Onset Date Comments Refill Request 05/16/2023 Reason Comments Sinus Problem Reason Comments Refill Request Reason Onset Date Comments Refill Request 07/29/2023 Care Teams (unrecognized sec tion and content) Language Asst Relationship Specialty Start Date End Date Jeffrey Pruett MD [address] [facility] [address] [place] [address] PCP - General Internal Medicine 07/09/21 Sebas Torre MD [address] [place], [place] [id number] PCP Resident Internal Medicine 10/08/21 Language Asst Relationship Specialty Start Date End Date Heather Saenz DO [address] [place] [address] PCP - General Internal Medicine 05/18/22 Sebas Torre MD [address] [place] [address] PCP Resident Internal Medicine 10/08/21 Language Asst Relationship Specialty Start Date End Date Heather Saenz DO [address] [place] [address] PCP - General Internal Medicine 05/18/22 Sebas Torre MD [address] [place], [place] [id number] [phone] Resident Internal Medicine 10/08/21 Language Asst Relationship Specialty Start Date End Date Heather Saenz DO [address] [place] [address] PCP - General Internal Medicine 05/18/22 Sebas Torre MD [address] [place] [address] PCP Resident Internal Medicine 10/08/21 Language Asst Relationship Specialty Start Date End Date Heather Saenz DO [address] [place] [address] [place] [address] PCP - General Internal Medicine 05/18/22 Sebas Torre MD [address] [place] [address] PCP Resident Internal Medicine 10/08/21 Language Asst Relationship Specialty Start Date End Date Heather Saenz DO [address] [address] [place] [address] PCP - General Internal Medicine 05/18/22 Sebas Torre MD [address] [place] [address] PCP Resident Internal Medicine 10/08/21 Language Asst Relationship Specialty Start Date End Date Heather Saenz DO [address] [place] [address] PCP - General Internal Medicine 05/18/22 Sebas Torre MD [address] [place] [address] PCP Resident Internal Medicine 10/08/21 Language Asst Relationship Specialty Start Date End Date Heather Saenz DO [address] [place] [address] PCP - General Internal Medicine 05/18/22 Shannon Chiang DO 1 [place], [place] [id number] PCP Resident Internal Medicine 04/02/23 Language Asst Relationship Specialty Start Date End Date SeraHeather blankenshipDO 1 [facility] 5th Floor [place], [place] [id number] PCP - General Internal Medicine 05/18/22 Shannon Chiang DO 1 [place], [place] [id number] PCP Resident Internal Medicine 04/02/23 Language Asst Relationship Specialty Start Date End Date Blessing SaenzewDO 1 [facility] 5th [place], [place] [id number] PCP - General Internal Medicine 05/18/22 Shannon Chiang DO 1 [place], [place] [id number] PCP Resident Internal Medicine 04/02/23 Language Asst Relationship Specialty Start Date End Date Sera HeatherDO 1 [facility] [address]th [place] [address] PCP - General Internal Medicine 05/18/22 Sebas Torre MD 1 [facility], 5th [place] [address] PCP Resident Internal Medicine 10/08/21 04/01/23 Language Asst Relationship Specialty Start Date End Date Sera HeatherDO 1 [facility] 5th Floor [place], [place] [id number] PCP - General Internal Medicine 05/18/22 Shannon Chiang DO 1 [place], [place] [id number] PCP Resident Internal Medicine 04/02/23 Language Asst Relationship Specialty Start Date End Date Heather Saenz DO [address] [place], [place] [id number] PCP - General Internal Medicine 05/18/22 Shannon Chiang DO 1 [address] [facility] [place] [id number] PCP Resident Internal Medicine 04/02/23 Language Asst Relationship Specialty Start Date End Date Heather Saenz DO [address] [facility] 5th Floor [place], [place] [id number] PCP - General Internal Medicine 05/18/22 Shannon Chiang DO [address] [facility] [place], [place] [id number] PCP Resident Internal Medicine 04/02/23 Language Asst Relationship Specialty Start Date End Date Heather Saenz [address] [facility] [address]th [place], [place] [id number] PCP - General Internal Medicine 05/18/22 Shannon Chiang DO [address] [place], [place] [id number] PCP Resident Internal Medicine 04/02/23 FOR RECORDS PERTAINING TO PATIENTS WHO ARE OR HAVE BEEN ENROLLED IN A CHEMICAL DEPENDENCY/SUBSTANCEABUSE PROGRAM, SOME INFORMATION MAY BE OMITTED. This clinical summary was aggregated from multiple sources. Caution should be exercised in using it in the provision of clinical care. This summary normalizes information from multiple sources, and as a consequence, information in this document may materially change the coding, format and clinical context of patient data. In addition, data may be omitted in some cases. CLINICAL DECISIONS SHOULD BE BASED ON THE PRIMARY CLINICAL RECORDS. [employer] provides no warranty or guarantee of the accuracy or completeness of information in this document.
--- NOTE | 2023-11-23 21:42 | CT_ITS ---
INDICATION: lung mass EXAMINATION: CT CHEST WITH CONTRAST - CT Chest W/ Contrast Injection TECHNIQUE: Helically acquired images were obtained of the chest following IV contrast. A radiation dose optimization technique was used for this scan. IV Contrast dosage and agent: 75 cc of Isovue-370. COMPARISON: None. FINDINGS: LUNGS, PLEURA AND LARGE AIRWAYS: There is a large lobular heterogeneous mass within the right upper lobe measuring 7.3 x 5.1 x 6.4 cm highly compatible with neoplasm. There are mild associated peripheral spiculations. There is a second nodule identified within the right lower lobe junction with the right middle lobe measuring 1.5 x 1.2 x 1.8 cm abutting the pleura/minor fissure with adjacent pleural thickening. There is a spiculated lesion within the right lower lobe most compatible with malignant nodule, image 63, series 4 measuring 13.2 mm.There are diffuse emphysematous changes bilaterally. There is left posterior lower lobe consolidation suggestive of pneumonitis. There are multiple confluent nodular masses along the medial and posterior aspect of the right pleura most compatible with pleural-based metastasis. There are bilateral [id number] pleural effusions, left larger than right. THYROID: There is a heterogeneous lesion within the right thyroid lobe measuring 2.0 x 1.8 cm. HEART AND PERICARDIUM: Normal cardiac size with coronary artery calcifications. No pericardial effusion. VESSELS: Atherosclerotic disease of aorta with no aneurysm. No aortic dissection. No obvious central pulmonary embolism although this study was not performed with the pulmonary embolism protocol. MEDIASTINUM AND ESPERANZA: No mediastinal or hilar adenopathy. Esophagus is unremarkable. No hiatal hernia. UPPER ABDOMEN: Diffuse fatty liver, remainder of the upper abdominal viscera are unremarkable. BONES: Diffuse osteopenia/osteoporosis with mild degenerative disease. CT/Chest WITH Contrast IMPRESSION: Large mass within the right upper lobe as described most compatible with neoplastic process. Additional right posterolateral confluent pleural-based masses most compatible with metastatic disease. Small nodules within the right lower lobe as described above, clinical correlation recommended. Bilateral pleural effusions, left larger than right. Possible left lower lobe pneumonitis with diffuse underlying emphysema. Electronically Signed: Kamla Valdivia MD at 22:05 EST ,
--- NOTE | 2023-11-23 21:43 | PCM.HP.STD ---
HPI - General General Date of Admission: 11/23/23 Date of Service: 11/23/23 Chief Complaint: RLE pain, fall. HPI Narrative The patient is a 77 y/o F w/ PMHx: COPD with chronic hypoxic respiratory failure (3L NC), HTN, HLD, HF Unclear type, Former tobacco use, Hypothyroidism who presents to the [facility] ED on 11/23/23 with history of unfortunate mechanical fall landing on her right lower extremity with significant right thigh discomfort 10 out of 10 in severity with debility and inability to move prompting eventual ED evaluation. In the ED did discuss patient's abnormal chest findings with planned CT which patient and family understand. She notes that since the summer she has had worsened shortness of breath, worse with exertion but no change to her chronic cough, no increased productive sputum nor any fevers or chills. She does states she will have occasional night sweats. She does report that during COVID she lost weight however she is gained most of it back. She states she will occasionally follow with pulmonary medicine but only when she needs to. Workup in the ED included T97.9, heart rate 99, BP 1.51, respiratory rate 18, 99% on room air, CBC with WBC 10.5, hemoglobin 3.9, MCV 90.9, platelet 216 with left shift, BMP with sodium 133, chloride 90, CO2 moving 40, BUN/creatinine 28/0.75, glucose 126, calcium 11, plain film of the right ankle with possible osteopenia with no acute fracture or subluxation with nonspecific soft tissue swelling, chest x-ray with a large cavitary lesion in the right mid upper lung suggestive of neoplasm versus cavitary infectious process with recommended follow-up CT chest, left perihilar pneumonia versus less likely asymmetric vascular congestion/pulmonary edema, plain film of the right femur with a femoral neck fracture with superior displacement of femoral shaft in relation to the head with no joint dislocation, plain film of the pelvis with right femoral neck/subcapital fracture with some degree of superior displacement of femoral shaft in relation to the head with no joint dislocation, plain film of the tib/fib w/ questionable osteopenia with no distinct fracture or subluxation seen, EKG with SR without acute evidence of ischemia. In the ED patient administered IBU 600 mg po x1. ED discussed case with Orthopedic surgery Dr. Cook. Discussed concerns for anesthesia with underlying pulmonary disease and CXR findings and requested CT Chest be obtained to assure patient appropriate for OR [facility]. [facility] Medical History (Updated 11/23/23 @ 21:[address] Ani Gillis MD) CHF (congestive heart failure) Chronic hypoxic respiratory failure, on home oxygen therapy COPD (chronic obstructive pulmonary disease) Former tobacco use Hypercholesteremia Hypertension Hypothyroidism Home Medications Atorvastatin Calcium 40 mg PO DAILY 03/26/17 [History Last Taken 03/26/17] enalapril maleate 20 mg tablet 20 mg PO BID 03/26/17 [History Last Taken 03/26/17] fluticasone 250 mcg-salmeterol 50 mcg/dose blistr powdr for inhalation (Advair Diskus) 1 ea IH DAILY 03/26/17 [History Last Taken 03/26/17] hydrochlorothiazide 25 mg tablet 25 mg PO DAILY 03/26/17 [History Last Taken 03/26/17] levothyroxine 88 mcg tablet (Synthroid) 88 mcg PO DAILY 03/26/17 [History Last Taken 03/26/17] amlodipine 10 mg tablet 10 mg PO DAILY 11/23/23 [History Last Taken Unknown] tiotropium bromide 1.25 mcg/actuation mist for inhalation (Spiriva Respimat) 2 puff inhalation Q24H 11/23/23 [History Last Taken Unknown] Allergy/AdvReac Type Severity Reaction Status Date / Time No Known Allergies Allergy Verified 11/23/23 19:27 Family History (Updated 11/23/23 @ 21:[address] Ani Gillis MD) Mother CAD (coronary artery disease) Hypertension Heart disease Myocardial infarction Father Hypertension Heart disease CVA (cerebral vascular accident) Surgical History (Updated 11/23/23 @ 21:[address] Ani Gillis MD) History of thyroid surgery Social History (Updated 11/23/23 @ 21:[address] Ani Gillis MD) household members: family Smoking Status: Former smoker how long ago did patient quit smoking: Quit 11/2004, smoked 2 ppd since youth until quit. alcohol intake: never substance use type: does not use ROS ROS Narrative Admission Review of Systems: CONSTITUTIONAL: No fever, chills. + Intermittent night sweats, Hx weight loss during COVID nearly gained it all back, weakness or fatigue. HEENT: Eyes: No visual loss, blurred vision, double vision or yellow sclerae. Ears, Nose, Throat: No hearing loss, sneezing, congestion, runny nose or sore throat. SKIN: No rash or itching, lesions, wounds. CARDIOVASCULAR: No chest pain, chest pressure or chest discomfort, palpitations, edema, orthopnea, syncopal events. RESPIRATORY: + Chronic dyspnea worsened over the summer, chronic cough, occasional wheezing. No markedly productive sputum, hemoptysis. GASTROINTESTINAL: No anorexia, nausea, vomiting or diarrhea, abdominal pain, melena, BRBPR. GENITOURINARY: No dysuria, frequency, urgency or retention. NEUROLOGICAL: No headache, dizziness, syncope, paralysis, ataxia, numbness or tingling in the extremities, focal weakness, change in bowel or bladder control, seizure. MUSCULOSKELETAL: + muscle, back pain, joint pain or stiffness. HEMATOLOGIC:+ anemia, easy bleeding/bruising. LYMPHATICS: No enlarged nodes. No history of splenectomy. PSYCHIATRIC: No history of depression or anxiety. ENDOCRINOLOGIC: + reports of sweating. No cold or heat intolerance. No polyuria or polydipsia. ALLERGIES: No history of asthma, hives, eczema or rhinitis. Vital Signs Vital Signs Vital Signs: 11/23/23 19:20 11/23/23 20:46 Temperature 97.2 F L 97.9 F Temperature Source Temporal Pulse Rate 93 99 Respiratory Rate 18 18 Blood Pressure 139/70 H 140/71 H Blood Pressure Mean 93 94 Pulse Ox 95 99 Oxygen Delivery Method Room Air Physical Exam Narrative Physical Examination: General: Awake, alert, oriented x 3 and cooperative, seated upright in the ED bed in no apparent distress, notes pain currently improved but she is at rest, with any movement pain severe 10 out of 10. Skin: Normal color, normal turgor, no icterus, no cyanosis except occasional staged ecchymoses, abrasion. HEENT: AT/NC, EOMI, PERRLA, dry MM, no carotid bruits or JVD noted. Lungs: Severely diffusely diminished, greater bases, mildly increased respiratory rate but no distress, no rales, ronchi or wheezing. Heart: Mildly tachycardic with regular rhythm; no gallop, rub audible. Abdomen: Soft, cachectic appearance, NTTP, ND, mildly hyperactive BS, no HSM. Extremities: No cyanosis, no clubbing, bilateral peripheral ankle edema present, status post mechanical fall with right hip fracture. Neurological: Patient awake, alert, oriented x 3, cognitive function intact; pupils equally reactive to light and accommodation, cranial nerves II-XII grossly normal, moving all 4 extremities except very limited right lower extremity movement given fall with hip fracture as expected, strength accordingly severely globally decreased. Psychiatric: Affect appears fatigued, no acute evidence of depressive or anxiety feelings. Results Lab / Micro Data 11/23/23 20:20 11/23/23 20:20 Labs: Laboratory Results - last 24 hr 11/23/23 20:20: WBC 10.5, RBC 3.95 L, Hgb 10.9 L, Hct 35.9 L, MCV 90.9, MCH 27.6, MCHC 30.4 L, RDW Std Deviation 42.9, RDW Coeff of Jomar 12.8, Plt Count 260, MPV 9.0, Immature Gran % (Auto) 0.300, Neut % (Auto) 81.6 H, Lymph % (Auto) 9.1 L, Cache % (Auto) 6.7, Eos % (Auto) 1.8, Baso % (Auto) 0.5, Absolute Neuts (auto) 8.6 H, Absolute Lymphs (auto) 0.96, Nucleated RBC % 0, Sodium 133 L, Potassium 4.3, Chloride 90 L, Carbon Dioxide 40.0 H, Anion Gap 3 L, BUN 28 H, Creatinine 0.75, Est GFR (MDRD) Af Amer 96, Est GFR (MDRD) Non-Af 80, BUN/Creatinine Ratio 37.5 H, Glucose 126 H, Calcium 11.0 H, Troponin I High Sens 21 Imaging Radiology Impression Ankle X-Ray 11/23/23 20:00 IMPRESSION: Possible osteopenia with no acute fracture or subluxation. Nonspecific soft tissue swelling as described. Electronically Signed: Kamla Valdivia MD at 20:39 EST , Chest X-Ray 11/23/23 20:00 IMPRESSION: Large cavitary lesion in the right mid upper lung suggestive of neoplasm versus cavitary infectious process. If indicated, follow-up with CT chest recommended. Left perihilar pneumonia versus less likely asymmetric vascular congestion/pulmonary interstitial edema. Electronically Signed: Kamla Valdivia MD at 20:44 EST Reading Location ID and State: [employer] / [employer] , Service support , Femur X-Ray 11/23/23 20:00 IMPRESSION: Femoral neck fracture as described with superior displacement of the femoral shaft in relation to the head. No joint dislocation seen. Electronically Signed: Kamla Valdivia MD at 20:40 EST Reading Location ID and State: [email or web address] / [employer] , Service support , Pelvis X-Ray 11/23/23 20:00 IMPRESSION: Right femoral neck/subcapital fracture as described with some degree of superior displacement of the femoral shaft in relation to the head. No joint dislocation. Electronically Signed: Kamla Valdivia MD at 20:42 EST Reading Location ID and State: [employer] / [employer] , Service support , Tibia/Fibula X-Ray 11/23/23 20:00 IMPRESSION: Question osteopenia with no distinct fracture or subluxation seen. Electronically Signed: Kamla Valdivia MD at 21:26 EST Reading Location ID and State: [employer] / [employer] , Service support , Assessment & Plan Assessment/Plan (1) Hip fracture: PLAN: Plan The patient is a 77 y/o F w/ PMHx: COPD with chronic hypoxic respiratory failure (3L NC), HTN, HLD, HF Unclear type, Former tobacco use, Hypothyroidism who presents to the [facility] ED on 11/23/23 with history of unfortunate mechanical fall landing on her right lower extremity with significant right thigh discomfort 10 out of 10 in severity with debility and inability to move prompting eventual ED evaluation. #1. General debility, R hip pain s/p mechanical fall w/ femoral neck fracture with superior displacement of femoral shaft: Will admit to MS, maintain NPO after midnight although given acute presentation #2 this likely will need further investigated prior to OR transition, gentle IVFs, bonilla placement, monitor I/Os, frequent positioning, fall precautions, as needed pain, anti-emetic regimen. PT/OT following operative intervention. CM consulted for discharge planning. Per NSQIP patient would be moderate risk; however, given her acute presentation with CXR findings high suspicion for cancer or infectious process thus would elevate her current risk. Will need to further assess with CT Chest to assess needs as far as Onc versus Pulm evaluation versus ID involvement. Discussed with ED physician and pending this image and findings will then discuss with anesthesias. Surgery has already been updated on plan given these concerns. #2. Large cavitary lesion in the right mid upper lung suggestive of neoplasm versus cavitary infectious process, Questionable left perihilar pneumonia versus less likely asymmetric vascular congestion/pulmonary edema: Given findings will obtain CT Chest with contrast to further assess, complicates presentation and given history suspect underlying malignancy, will need to review with anesthesias to assure candidate for surgery WC, per discussion with patient would obtain Hem/Onc evaluation/Pulmonary evaluation and would be amenable to Bx for further plan of care. She would then base decision of treatment based on these items. #3. Hypercalcemia: Admission Ca++ 11, will obtain ionized calcium, judiciously hydrating as noted, suspect underlying malignancy as noted #2 but workup ongoing. #4. Chronic COPD with chronic hypoxic respiratory failure: Will maintain on 3 L nasal cannula home oxygen supplementation, continue will hold home inhaler in the interim transition to ATC budesonide therapy, PRN albuterol, HOB, IS parameters. #5. Chronic normocytic anemia: Admission hemoglobin 10.9, baseline previously 11, stable, continue to trend. #6. HF, Unclear type: Will judiciously hydrate given unclear history, no ECHO noted in [employer], will continue home asa, statin, enalapril, not on BB therapy, continue HCTZ cautiously. #7. Hypertension: Continue home regimen including amlodipine, enalapril, hydrochlorothiazide with hold parameters as needed, PRN hydralazine. #8. Hyperlipidemia: We will continue patient on statin therapy. #9. Hypothyroidism: History of subtotal thyroidectomy, will continue patient home levothyroxine regimen. #10. Former heavy tobacco use: Encourage continued tobacco cessation. #11. DVT prophylaxis: SCDs given unclear findings in the lungs and possibility of OR. #12. CODE status: Patient does not have healthcare power of tower operator or living will in place but notes that her children would be her decision-maker. She currently lives with her daughter who is also present. Discussed CODE status at length including difference between FULL code, DNR-CCA and DNR-CC status. Following discussions about the differences in these status, requested DNR-CCA, no intubation status. Advanced Care Planning Face to Face Time: 16 minutes. Charges/Coding Visit Charges Inpatient E&M: 13109 Init Hosp L3 Procedures Hospitalists Procedures: 09096 Advncd Care Plan 30 Min
[2023-11-23] MEDS: Albuterol 2.5 MG/3 ML VIAL.NEB. INHALATION (22:21)
[2023-11-23] MEDS: Ipratropium/Albuterol Sulfate 3 ML AMPUL.NEB INHALATION (22:21)
[2023-11-23 22:22] VITALS: PULSE 110; RESP 20
--- NOTE | 2023-11-23 22:40 | ED.VIS.LOWEX ---
HPI History of Present Illness Chief Complaint: Lower Extremity Injury Narrative Narrative: 77-year-old female presenting with mechanical fall. She states she fell and hurt her right leg. She is having trouble localizing it. To above her right knee but then also points below her knee and says her ankle and foot hurt. Patient unable to ambulate since the fall. Denies head injury or LOC. In her usual state of health prior to the fall. No blood thinners. PFSH PFS Medical History CHF (congestive heart failure) Chronic hypoxic respiratory failure, on home oxygen therapy COPD (chronic obstructive pulmonary disease) Former tobacco use Hypercholesteremia Hypertension Hypothyroidism Home Medications Atorvastatin Calcium 40 mg PO DAILY 03/26/17 [History Last Taken 03/26/17] enalapril maleate 20 mg tablet 20 mg PO BID 03/26/17 [History Last Taken 03/26/17] fluticasone 250 mcg-salmeterol 50 mcg/dose blistr powdr for inhalation (Advair Diskus) 1 ea IH DAILY 03/26/17 [History Last Taken 03/26/17] hydrochlorothiazide 25 mg tablet 25 mg PO DAILY 03/26/17 [History Last Taken 03/26/17] levothyroxine 88 mcg tablet (Synthroid) 88 mcg PO DAILY 03/26/17 [History Last Taken 03/26/17] amlodipine 10 mg tablet 10 mg PO DAILY 11/23/23 [History Last Taken Unknown] tiotropium bromide 1.25 mcg/actuation mist for inhalation (Spiriva Respimat) 2 puff inhalation Q24H 11/23/23 [History Last Taken Unknown] Allergy/AdvReac Type Severity Reaction Status Date / Time No Known Allergies Allergy Verified 11/23/23 19:27 Family History Mother CAD (coronary artery disease) Hypertension Heart disease Myocardial infarction Father Hypertension Heart disease CVA (cerebral vascular accident) Surgical History History of thyroid surgery Social History household members: family Smoking Status: Former smoker how long ago did patient quit smoking: Quit 11/2004, smoked 2 ppd since youth until quit. alcohol intake: never substance use type: does not use ROS ROS ED Constitutional Constitutional ED: Denies chills, fever(s) or sweats Eyes Eyes: Denies blurry vision or change in vision ENT ENT ED: Denies ear pain or sore throat Cardiovascular Cardiovascular: Denies chest pain, palpitations or racing heartbeat Respiratory/Chest Respiratory/Chest: Denies cough, dyspnea or sputum Gastrointestinal Gastrointestinal: Denies abdominal pain, constipation, diarrhea, nausea or vomiting Genitourinary Genitourinary ED: Denies dysuria, hematuria or urinary frequency Musculoskeletal Musculoskeletal: Reports other Details: Right hip and leg pain ; Denies arthralgias, myalgias or neck pain Integumentary Denies abscess, Abrasions or rash Neurologic Neurologic: Denies headache(s), paresthesias or weakness Psychiatric Psychiatric: Denies anxiety, depression, suicidal ideation or suicidal thoughts Endocrine Endocrinology: Denies polydipsia or polyuria EXAM Physical Exam Const Vital Signs: 11/23/23 19:20 11/23/23 20:46 11/23/23 22:22 Temperature 97.2 F L 97.9 F Temperature Source Temporal Pulse Rate 93 99 110 H Respiratory Rate 18 18 20 H Blood Pressure 139/70 H 140/71 H Blood Pressure Mean 93 94 Pulse Ox 95 99 Oxygen Delivery Method Room Air Positive cachectic General Appearance ED: cachectic Nutritional Appearance: cachectic HEENT Reports moist mucous membranes normocephalic and atraumatic Chest Wall inspection of chest normal Resp normal respiratory effort and no retractions Auscultation: Negative for rales, rhonchi or wheezes Cardio regular rate and regular rhythm GI non-tender and non-distended Extremity Extremity Narrative: Tenderness to palpation over the right mid thigh. She did not have any tenderness over the right hip and logroll did not elicit any pain. There is no pain elicited when palpating the right knee but she does have some pain in the right tibial region and there is tenderness to the medial lateral malleolus. There are some edema in the right foot. Neurovascular intact at all 5 toes. Neuro oriented x3 Sensorium / Orientation: alert Psych mental status grossly normal MDM MDM MDM Narrative Medical decision making narrative: 77-year-old female presenting with mechanical fall. Difficult to localize her pain and she feels it is more in her lower leg however I did send her over for femur and tib-fib as well as ankle and the femur x-ray showed a femoral neck fracture. Otherwise the pelvis was stable. Tib-fib was no acute process on my interpretation. Right ankle shows no acute process on my interpretation.Chest x-ray on my interpretation shows a right sided lung mass and possible left-sided pneumonia although the patient has not had any cough or shortness of breath. She does have a history of COPD. Denies any fevers. Patient states she has not had a chest x-ray in a long time. I did relocation counselor her that I did not see a mass. Discussed the case with Dr. Cook who recommended admitting the patient to medicine. Surgical planning will be discussed with hospitalist. Discussed with Dr. Gillis who recommended that I get a CT of the chest to make sure there is nothing that needs urgent treatment prior to surgical intervention. This was obtained and the CT of the chest shows a large right-sided mass again with some areas concerning for metastasis. Patient counseled on all findings. At this point the patient can be admitted here to the hospital. Impression: 1. Mechanical fall 2. Right proximal femur fracture 3. Right lung mass 4. Right ankle sprain Lab Data Labs: Laboratory Results - last 24 hr 11/23/23 20:20 WBC 10.5 RBC 3.95 L Hgb 10.9 L Hct 35.9 L MCV 90.9 MCH 27.6 MCHC 30.4 L RDW Std Deviation 42.9 RDW Coeff of Jomar 12.8 Plt Count 260 MPV 9.0 Immature Gran % (Auto) 0.300 Neut % (Auto) 81.6 H Lymph % (Auto) 9.1 L Wharton % (Auto) 6.7 Eos % (Auto) 1.8 Baso % (Auto) 0.5 Absolute Neuts (auto) 8.6 H Absolute Lymphs (auto) 0.96 Nucleated RBC % 0 Sodium 133 L Potassium 4.3 Chloride 90 L Carbon Dioxide 40.0 H Anion Gap 3 L BUN 28 H Creatinine 0.75 Est GFR (MDRD) Af Amer 96 Est GFR (MDRD) Non-Af 80 BUN/Creatinine Ratio 37.5 H Glucose 126 H Calcium 11.0 H Troponin I High Sens 21 Radiography Diagnostic Testing: Clinical Impression(s) from Imaging Studies Ankle X-Ray 11/23/23 20:00 IMPRESSION: Possible osteopenia with no acute fracture or subluxation. Nonspecific soft tissue swelling as described. Electronically Signed: Kamla Valdivia MD at 20:39 EST Reading Location ID and State: [facility] , Service support , Chest X-Ray 11/23/23 20:00 IMPRESSION: Large cavitary lesion in the right mid upper lung suggestive of neoplasm versus cavitary infectious process. If indicated, follow-up with CT chest recommended. Left perihilar pneumonia versus less likely asymmetric vascular congestion/pulmonary interstitial edema. Electronically Signed: Kamla Valdivia MD at 20:44 EST Reading Location ID and State: [facility] , Service support , Femur X-Ray 11/23/23 20:00 IMPRESSION: Femoral neck fracture as described with superior displacement of the femoral shaft in relation to the head. No joint dislocation seen. Electronically Signed: Kamla Valdivia MD at 20:40 EST Reading Location ID and State: [facility] , Service support , Pelvis X-Ray 11/23/23 20:00 IMPRESSION: Right femoral neck/subcapital fracture as described with some degree of superior displacement of the femoral shaft in relation to the head. No joint dislocation. Electronically Signed: Kamla Valdivia MD at 20:42 EST Reading Location ID and State: [facility] , Service support , Tibia/Fibula X-Ray 11/23/23 20:00 IMPRESSION: Question osteopenia with no distinct fracture or subluxation seen. 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 Additional right posterolateral confluent pleural-based masses most compatible with metastatic disease. Small nodules within the right lower lobe as described above, clinical correlation recommended. Bilateral pleural effusions, left larger than right. Possible left lower lobe pneumonitis with diffuse underlying emphysema. Electronically Signed: Kamla Valdivia MD at 22:05 EST , Discharge Plan Triage Chief Complaint: Lower Extremity Injury ED Provider: Deepak Baird Dx/Rx/DC Orders Prescriptions: No Action Atorvastatin Calcium 40 MG tablet 40 mg PO DAILY fluticasone propion-salmeterol [Advair Diskus] 1 EACH blister with device 1 ea IH DAILY enalapril maleate 20 MG tablet 20 mg PO BID levothyroxine [Synthroid] 88 MCG tablet 88 mcg PO DAILY hydrochlorothiazide 25 MG tablet 25 mg PO DAILY amlodipine 10 mg tablet 10 mg PO DAILY Spiriva Respimat 1.25 mcg/actuation mist 2 puff INHALATION Q24H Primary Care Provider: Care Physician,No Primary Referrals: Care Physician,No Primary [Primary Care Provider] -
--- NOTE | 2023-11-23 22:53 | ECHOD_ITS ---
Reason For Study: SOB Procedure This was a 2D Doppler, Color Flow transthoracic echocardiogram. Exam performed portable in patient room. Left Ventricle Normal LV size. Left ventricular systolic function is hyperdynamic. The left ventricular ejection fraction is 70 %. Stage 1 diastolic dysfunction. No regional wall motion abnormalities noted. Right Ventricle Normal RV size. Normal systolic function. Atria Normal left atrium. Normal right atrium. Mitral Valve There is mild mitral annular calcification. Tricuspid Valve Normal tricuspid valve. Moderate (2+) tricuspid valve insufficiency. Pulmonary artery systolic pressure is 59 mmHg. Moderate pulmonary hypertension. Aortic Valve Trisinus/trileaflet aortic valve. Mild focal aortic valve calcification. Pulmonic Valve Normal pulmonic valve. Great Vessels Normal aortic root. The pulmonary artery is normal size. Inferior vena cava collapse with respiration. Pericardium/Pleural No pericardial effusion. MMode/2D Measurements & Calculations LVIDd: 3.4 cm IVSd: 0.91 cm Ao root diam: 3.3 cm LVIDs: 1.9 cm LVPWd: 0.93 cm RVDd: 2.8 cm FS: 42.8 % LAV(MOD-bp): 13.0 ml LVAd ap4: 19.8 cm2 SV(MOD-sp4): 33.3 ml LAV(MOD-bp) Indexed: 8.8 ml/m2 LVLd ap4: 6.9 cm LAV(MOD-sp2): 8.4 ml EDV(MOD-sp4): 46.5 ml LAV(MOD-sp4): 14.0 ml EDV(sp4-el): 48.1 ml LVAs ap4: 9.4 cm2 LVLs ap4: 5.7 cm ESV(MOD-sp4): 13.3 ml ESV(sp4-el): 13.2 ml EF(MOD-sp4): 71.5 % EF(sp4-el): 72.6 % SV(sp4-el): 34.9 ml LA A4 area: 8.5 cm2 LA dimension(2D): 2.2 cm RA A4 area: 8.1 cm2 TAPSE: 1.6 cm Time Measurements MV dec time: 0.20 sec Doppler Measurements & Calculations MV E max rogerio: 79.7 cm/sec Lat Peak E' Rogerio: 10.2 cm/sec Med Peak E' Rogerio: 7.4 cm/sec MV A max rogerio: 92.5 cm/sec E/E' lat: 7.8 E/E' med: 10.8 MV E/A: 0.86 Ao V2 max: 161.2 cm/sec LV V1 max: 109.6 cm/sec MV dec slope: 401.1 cm/sec2 Ao max P.4 mmHg LV V1 max P.8 mmHg PA V2 max: 100.7 cm/sec TR max rogerio: 372.6 cm/sec TR max P.5 mmHg ECHO/Echo Complete Interpretation Summary Normal LV size. Left ventricular systolic function is hyperdynamic. The left ventricular ejection fraction is 70 %. There is mild mitral annular calcification. Stage 1 diastolic dysfunction. Pulmonary artery systolic pressure is 59 mmHg. Moderate pulmonary hypertension. Ordering Physician: Ani Gillis Performed By: Madelyn Acosta RDCS
--- OUTSIDE RECORDS SUMMARY | 2023-11-23 22:53 | XMS RPT_ITS | CCD ---
Author Name Unknown Address [address] [place] [address] Organization [facility] Care Team Providers Care Mushroom Growth Media Mixer Name Role Phone Matthew Blount Primary Care Provider [facility] Primary Care Provider Flynn ARAUZ, Jeffrey Sheppard Primary Care Provider [phone] Sebas Torre MD Unavailable Sebas Torre MD [...] Penicillins; Translations: [PENICILLINS] Drug Allergy 06-21-2014 Rash [facility] (17 sources) Penicillins Drug Allergy 06-21-2014 Rash [facility] Medications Current Medications Medication Drug Class(es) Dates [...] Drug Class(es) Dates Sig (Normalized) Sig (Original) [id number] 200 actuat albuterol 0.09 mg/actuat metered dose [...] 44.91 kg Linsey Matthew MD Work Phone: [facility] 03-23-2023 09:43-0400 Diastolic blood pressure 60 mm[Hg] Linsey Matthew MD Work Phone: [facility] 03-23-2023 09:43-0400 Heart rate 94 /min Linsey Matthew MD Work Phone: [facility] 03-23-2023 09:43-0400 SaO2% (BldA) [Mass fraction] 95 % Linsey Matthew MD Work Phone: [facility] 03-23-2023 09:43-0400 Systolic blood pressure 130 mm[Hg] Linsey Matthew MD Work Phone: [facility] 02-25-2022 09:10-0400 Body height 165.1 cm Sebas Torre MD Work Phone: [facility] 02-25-2022 09:10-0400 Body temperature 98.1 [degF] Sebas Torre MD Work Phone: [facility] 02-25-2022 09:10-0400 Body weight 47.17 kg Sebas Torre MD Work Phone: [facility] 02-25-2022 09:10-0400 Diastolic blood pressure 75 mm[Hg] Sebas Torre MD Work Phone: [facility] 02-25-2022 09:10-0400 Heart rate 93 /min Sebas Torre MD Work Phone: [facility] 02-25-2022 09:10-0400 Respiratory rate 20 /min Sebas Torre MD Work Phone: [facility] 02-25-2022 09:10-0400 SaO2% (BldA) [Mass fraction] 97 % Sebas Torre MD Work Phone: [facility] 02-25-2022 09:10-0400 Systolic blood pressure 149 mm[Hg] Sebas Torre MD Work Phone: [facility] Encounters Encounter Date Encounter Type Care Provider Facility Start: 07-29-2023 Refill Libjosselyn lebron APRN.CNP Work Phone: [facility] ([facility]) Procedures Date Procedure Procedure Detail Performing Clinician Start: 04-16-2021 Adult depression screening assessment Sebas Torre MD Work Phone: Start: 11-07-2009 CONVERTED SURGICAL PATHOLOGY Steve Wooten Work Phone: Start: 09-19-2008 CONVERTED CYTOLOGY DRAFTER CIVIL ENGINEERING Darline Beverly Start: 09-21-2005 CONVERTED CYTOLOGY DRAFTER CIVIL ENGINEERING Juvencio Goldsmith Work Phone: Plan of Treatment Date Care Activity Detail Author Start: 03-23-2026 DIABETES SCREEN DIABETES SCREEN [facility] Start: 03-23-2026 [facility] Start: 01-11-2026 DIABETES SCREEN DIABETES SCREEN [facility] Start: 04-16-2024 DIABETES SCREEN DIABETES SCREEN [facility] Start: 03-23-2024 ANNUAL PCP TEAM HAND COMPOSITOR MARCELO DISEASE VISIT ANNUAL PCP TEAM CHRONIC DISEASE VISIT [facility] Start: 01-12-2024 ANNUAL PCP TEAM HAND COMPOSITOR MARCELO DISEASE VISIT ANNUAL PCP TEAM CHRONIC DISEASE VISIT [facility] Start: 11-18-2023 ANNUAL PCP TEAM HAND COMPOSITOR MARCELO DISEASE VISIT ANNUAL PCP TEAM CHRONIC DISEASE VISIT [facility] Start: 06-03-2023 Covid-19 Vaccine () Covid-19 Vaccine () [facility] Start: 06-03-2023 Influenza vaccination [facility] Start: 02-25-2023 ANNUAL PCP TEAM HAND COMPOSITOR MARCELO DISEASE VISIT ANNUAL PCP TEAM CHRONIC DISEASE VISIT [facility] Start: 02-25-2023 BONE DENSITY BONE DENSITY [facility] Immunizations Immunization Date Immunization Notes Care Provider Fa hemal 08-20-2022 influenza (HD-IIV4) vaccine, age 65+ yr, high dose, quadrivalent, PF (FLUZONE HIGH-DOSE) Brittany Quintero APRN.SPLITTING MACHINE OPERATOR HELPER Work Phone: [facility] 08-20-2022 influenza virus vacc ine, unspecified formulation Beckie Yo APRN.SPLITTING MACHINE OPERATOR HELPER Work Phone: [facility] 07-28-2021 influenza, high-dose , quadrivalent vaccine (FLUZONE HIGH DOSE QUADRIVALENT) Sebas Torre MD Work Phone: [facility] 10-26-2019 influenza, injectabl e, quadrivalent, preservative free Sebas Torre MD Work Phone: [facility] 07-03-2018 influenza, seasonal, injectable, preservative free Sebas Torre MD Work Phone: [facility] 09-12-2017 influenza, seasonal, injectable Sebas Torre MD Work Phone: [facility] 11-04-2016 pneumococcal conjuga te vaccine, 13 valent Sebas Torre MD Work Phone: [facility] 09-12-2015 influenza, seasonal, injectable Sebas Torre MD Work Phone: [facility] Payers Date Payer Category Payer [place] [id number] 2017-Present [phone] [address] [place] [address] Medicaid [id number] 2017 [place] [id number] 2017-Present [phone] [address] [place] [address] Medicaid [id number] 2017 Medicaid [id number] 2007 Medicare [id number] 2007 Medicare MEDICARE MEDICAR E A AND B [id number] 2007-Present [phone] [place] [address] Medicare [id number] 2007 Medicare [id number] Social History Date Type Detail Facility Tobacco smoking stat [facility] Unknown if ever smoked [facility] Start: 1945 Sex Assigned At Not on file C [facility] Start: 10-26-2019 End: 03-23-2023 Tobacco smoking status NJIS Ex-smoker [facility] History of tobacco use Cigarette Smoker C [facility] Start: 10-26-2019 End: 03-23-2023 Tobacco use and exposure Smokeless tobacco non-user [facility] Start: 07-28-2021 End: 03-23-2023 Alcohol intake Ex-drinker (finding) [facility] Start: 10-26-2019 End: 03-23-2023 Tobacco Comment quit in 2004 [facility] Start: 01-17-2022 End: 02-25-2022 Exposure to SARS-CoV-2 (event) Not sure [facility] History of tobacco use Current smoker [facility] Start: 01-11-2023 End: 03-23-2023 History of Social function [facility] Work Phone: Start: 01-11-2023 End: 03-23-2023 Tobacco use panel [facility] Work Phone: Adult Depression Screening Assessment 2 [facility] Work Phone: Clinical Notes 01-27-2022 to 08-01-2023 Telephone Encounter - Renata Garcia PSS - 08/01/2023 1:57 PM EDTTelephone Encounter - Renata Garcia PSS - 08/01/2023 1:56 PM EDBeckie Carvajal APRN.SPLITTING MACHINE OPERATOR HELPER - 07/19/2023 2:17 PM EDT Note Date & Type Note Facility 08-01-2023 Miscellaneous Notes Duplicate request. Renata Garcia, Plant Physiology Teacher August 01, 2023 1:57 PM documented in this encounter [facility] 08-01-2023 Miscellaneous Notes Last Office Visit Date: 01/11/2023 Last [facility] Emergency Department Health Visit: 11/18/2022 Has the patient had an appointment at [facility] in the past year, or do they have an upcoming appointment scheduled at [facility]? YES- Continue with refill request. Future Appointment: [...] daily. ALLERGIES Allergen Reactions Penicillins Rash (home) [phone] (cell) The patients preferred pharmacy has been captured for this encounter? yes Request is for script(s) to be escript to pharmacy. CHANTELLE Maynard documented in this encounter [facility] 07-19-2023 Note HNO ID: [id number] Author: Beckie Yo APRN.CNP Service: ? Author [...] day for 5 days. Beckie Yo APRN.CNP [facility] 07-19-2023 History of Present illness Narrative This [...] Beckie Yo APRN.DANAE documented in this encounter [facility] 05-10-2023 Miscellaneous Notes Results reviewed by patient on Mychart. L/m for Aria (daughter) to call the office. Sivan Kaufman.pin or clip fastener ----- Message from Linsey Matthew MD sent at 05/07/2023 12:52 PM EDT ----- Ct scan is normal. documented in this encounter [facility] 04-27-2023 Note HNO ID: [id number] Author: Zandra Pablo RT(R) Service: Radiology Author [...] ALTAGRACIA Minaya) April 27, 2023 1:01 PM [facility] 04-27-2023 History of Present illness Narrative [...] 2023 1:01 PM documented in this encounter [facility] 04-14-2023 Miscellaneous Notes Left message for patient to return call regarding results. ----- Message from Linsey Matthew MD sent at 04/04/2023 10:11 AM EDT ----- Patient is not diabetic at this time. Hypoglycemic episodes is possibly due to transient fasting states and sugar spikes. Please ask patient to eat consistently throughout the day and increase protein intake. documented in this encounter [facility] 04-04-2023 Miscellaneous Notes Authorization #: approved Lab Results: not required Test date and time: 04/15/23 1 pm Facility for test: [facility] Name of test: CT abdomen/pelvis w/o oral & IV contrast. No prep Patient confirmed test via My Chart Jennifer Middleton MA April 04, 2023 4:58 PM documented in this encounter [facility] 03-23-2023 Note HNO ID: [id number] Author: Linsey Matthew MD Service: ? Author Type: Physician Type: Progress Notes Filed: 05/01/2023 10:56 PM Note Text: Linsey Matthew MD [facility]iatric[facility] 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 No Is a power of insurance defense attorney in place for financial needs? No Is a power of insurance defense attorney in place for health care decisions? [...] A, Transportation:D, Medications: I, Handle Finances: I. (Levan scale): 4 Mobility Aid: None - is [...] NO Orthostatic Hypo (more content not included)... [facility] 03-23-2023 History of Present illness Narrative Images from the original note were not included. Linsey Matthew MD [facility] Geriatric[facility] 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 No Is a power of insurance defense attorney in place for financial needs? No Is a power of insurance defense attorney in place for health care decisions? [...] A, Transportation:D, Medications: I, Handle Finances: I. (Levan scale): 4 Mobility Aid: None - is [...] vision impairment and wears glasses Follows with development and planning engineer:NO Hearing - Hearing aid : Denies any [...] of care. LINSEY MATTHEW MD GERIATRIC MEDICINE [facility] Discussed the above with the patient using shared decision making. The patient is in agreement with the diagnostic and treatment plans. This note was partially generated using [employer], a [employer] voice recognition system, and there may be some incorrect words, spellings, and punctuation that were not noted in checking the note before saving. documented in this encounter [facility] 03-04-2023 Miscellaneous Notes Pharmacy faxed requesting the following refill Refill(s) Requested: Requested Prescriptions Pending Prescriptions Disp Refills amLODIPine (NORVASC) 10 mg tablet 90 tablet 3 Sig: Take 1 tablet by mouth once daily. atorvastatin (LIPITOR) 40 mg tablet 90 tablet 3 Sig: Take 1 tablet by mouth once daily. ALLERGIES Allergen Reactions Penicillins Rash (home) [phone] (cell) Last Office Visit Date: 01/11/2023 Last [facility] Emergency Department Health Visit: 11/18/2022 Future Appointment: Visit date not found The patients preferred pharmacy has been captured for this encounter? yes Request is for script(s) to be escript to pharmacy. Rachana Claudio LPN documented in this encounter [facility] 02-01-2023 Miscellaneous Notes Appointment 03/23/23 Appointment reminder sent to home address. Lucy Avila February 01, 2023 5:29 PM documented in this encounter [facility] 01-20-2023 Miscellaneous Notes 01/18/2023: LVM for patients daughter to please call back and make an appointment 01/18/23 tm. Confirmation #[id number] documented in this encounter [facility] 01-20-2023 Miscellaneous Notes Faxed to [facility] home respiratory. Ayesha Peralta, Tunnel Miner January 20, 2023 9:50 AM I sent an order for Home O2 renewal. Please check if it's done accordingly. Thanks, Images from the original note were not included. Please route telephone encounter to the Clerical Pool ([facility] Clerical Pool) Sebas Torre MD [facility] Clerical Pool 22 hours ago (10:24 AM) ALEX Does a home O2 renewal Rx require F2F? If so, Leon MOTOR HOTEL MANAGER would likely have to order because she most recently saw the patient. Thanks! Home Oxygen Renewal will require F2F, and new orders. Renata Garcia, Plant Physiology Teacher January 14, 2023 8:54 AM documented in this encounter [facility] 01-19-2023 Note HNO ID: [id number] Author: Brittany Quintero APRN.DANAE Service: ? Author Type: Nurse Practitioner Type: Progress Notes Filed: 01/19/2023 8:18 AM Note Text: Renewal of Home O2 Therapy for -patient's Advanced COPD. [facility] 01-11-2023 Note HNO ID: [id number] Author: Brittany Quintero APRN.SPLITTING MACHINE OPERATOR HELPER Service: ? Author Type: Nurse Practitioner Type: Progress Notes Filed: 01/11/2023 5:19 PM Note Text: Brittany Quintero APRN [facility] Date of Evaluation: 01/11/2023 Patient Name: Constanza [...] Exam Vitals reviewed. Exam conducted with a safety glass installer present. Constitutional: General: She is not in acute distress. Appearance: Normal appearance. She is not to (more content not included)... [facility] 11-29-2022 Miscellaneous Notes No Show Documentation [...] 2022 2:05 PM documented in this encounter [facility] 11-18-2022 Note HNO ID: [id number] Author: Iam Vital APRN.SPLITTING MACHINE OPERATOR HELPER Service: ? Author Type: Nurse Practitioner Type: [...] symptoms Nirmatrelvir/Ritonavir (Paxlovid) Eligibility and Patient Discussion [facility] Formulary Restriction Criteria: Adult outpatients 18 years [...] evaluation of this patient. Location of patient: [place] I spent 13 minutes in the telephone visit with patient. Iam Vital APRN.[facility] 11-18-2022 History of Present illness Narrative AMBULATORY [...] symptoms Nirmatrelvir/Ritonavir (Paxlovid) Eligibility and Patient Discussion [facility] Formulary Restriction Criteria: Adult outpatients 18 years [...] evaluation of this patient. Location of patient: [facility] spent 13 minutes in the telephone visit with patient. Iam Vital APRN.CNP documented in this encounter [facility] 11-18-2022 Miscellaneous Notes Patient scheduled for provider phone call visit to discuss starting Paxlovid. Renata Garcia, Plant Physiology Teacher November 18, 2022 12:17 PM Please route telephone encounter to the Clerical Pool ([facility] Clerical Pool) Staff message received Patient tested positive for Covid on 11/17 she would like to discuss treatment options. Message left for the patient to call the office back to schedule a provider phone call appointment. Eloy West, Tunnel Miner November 18, 2022 9:26 AM [facility] Esp[facility] Triage Pool Patient has been identified by name and Date of (Y/N): y Patient: Constanza Hernandez Date of : 1945 Provider for this encounter: Heather Saenz DO Reason for the call/escalation: tested positive for COVID on 11/17--inquiring if a candidate for the antibiotic Was Patient Referred to [facility]/Seek Emergency Treatment (Y/N): no Did Patient Agree (Y/N): n/a Was An Attempt Made To Transfer The Patient To The Office (Y/N): no Were You Able To Reach Someone At The Office (Y/N): n/a If Yes - Patient Was Transferred To (Caregivers Name): n/a If No - Which [employer] [facility] Leadership Mushroom Growth Media Mixer Did You Speak With Regarding This Patient: n/a Was an appointment scheduled (Y/N): no Reason patient was requesting visit (RFV/signs and symptoms/diagnosis) : tested positive for COVID on 11/17--inquiring if a candidate for the antibiotic Person calling if other than patient: Aria(daughter) Return call to if other than patient: Aria Best contact number: [phone] Thank you, Asia Esparza November 18, 2022 9:00 AM documented in this encounter [facility] 07-23-2022 Miscellaneous Notes Pharmacy faxed requesting the following refill Refill(s) Requested: Requested Prescriptions Pending Prescriptions Disp Refills chlorthalidone (HYGROTON) 25 mg tablet 45 tablet 1 Sig: Take 0.5 tablets by mouth once daily. enalapril (VASOTEC) 20 mg tablet 90 tablet 1 Sig: Take 1 tablet by mouth once daily. ALLERGIES Allergen Reactions Penicillins Rash (home) [phone] (cell) Last Office Visit Date: 02/25/2022 Last Distance Health Visit: Visit date not found Future Appointment: Visit date not found The patients preferred pharmacy has been captured for this encounter? yes Request is for script(s) to be escript to pharmacy. Jennifer Kirby documented in this encounter [facility] 02-26-2022 Miscellaneous Notes Add on test has [...] patient will need to return to a [facility] lab location to have level drawn. Thank you! Sebas Torre MD February 26, 2022 12:52 PM documented in this encounter [facility] 02-25-2022 History of Present illness Narrative Attending [...] 06/28/2022). This note was partially generated using [employer], a [employer] voice recognition system, and there may be some incorrect words, spellings, and punctuation that were not noted in checking the note before saving. Sebas Torre MD, signed on February 25, 2022 9:04 AM documented in this encounter [facility] 01-27-2022 Miscellaneous Notes Patient MyChart message requesting the following refill Refill(s) Requested: Pending Prescriptions Disp Refills CHLORTHALIDONE 25 MG TABLET 45 tablet 1 Sig: Take 0.5 tablets by mouth once daily. KAMRON: No ENALAPRIL MALEATE 20 MG TABLET 90 tablet 1 Sig: Take 1 tablet by mouth once daily. KAMRON: No ALLERGIES Allergen Reactions Penicillins Rash (home) [phone] (cell) Last Office Visit Date: 07/28/2021 Last [facility] Emergency Department Health Visit: Visit date not found Future Appointment: 02/25/2022 The patients preferred pharmacy has been captured for this encounter? yes Request is for script(s) to be escript to pharmacy. Claudia Rosales LPN documented in this encounter [facility]* Diagnosis Advanced COPD (HCC)- Primary Essential hypertension Unspecified essential hypertension Bilateral lower extremity edema Edema Hypothyroidism, unspecified type Hypercalcemia documented in this encounter [facility] note* Diagnosis Hypercalcemia- Primary documented in this encounter [facility] note* Diagnosis COVID-19 virus infection- Primary documented in this encounter [facility] note* Diagnosis Advanced COPD (HCC)- Primary documented in this encounter [facility] note* Diagnosis Essential hypertension Unspecified essential hypertension documented in this encounter [facility] note* Diagnosis Epigastric pain Abdominal pain, epigastric documented in this encounter [facility] note* Diagnosis Hypoglycemia- Primary Hypoglycemia, unspecified Epigastric pain Abdominal pain, epigastric documented in this encounter [facility] note* Diagnosis Acute rhinosinusitis- Primary Acute sinusitis, unspecified [facility]* Diagnosis Essential hypertension Unspecified essential hypertension [facility] Outpatient Procedure (Routine) - Pending Review Specialty Diagnoses / Procedures Referred By De t Referred To [facility] Diagnoses Advanced COPD (HCC) Procedures SPIROMETRY - BASELINE AND POST DILATOR BRNCDILAT RSPSE SPMTRY PRE&POST-BRNCDILAT ADMN Matthew Blount MD [address] [address] Res[facility] [place] [address] [place] [address] Referral ID Status Reason Start Date Expiration Date Visits Requested Visits Authorized [id number] Pending Review Auto-Generat ed Referral 02/25/2022 03/27/2023 1 1 [facility] Summary Purpose Family History No Family History Records FoundNo Family History Records FoundNo Family History Records Found Advance Directives Documents on File Type Date Recorded Patient Digital Experience Manager Expl anation Advance Directive(s) 10/26/2019 11:08 AM Documents on File Type Date Recorded Patient Digital Experience Manager Expl anation Advance Directive(s) 12/15/2020 1:35 PM Advance Directive(s) 10/26/2019 11:08 AM Documents on File Type Date Recorded Patient Digital Experience Manager Expl anation Advance Directive(s) 12/15/2020 1:35 PM Advance Directive(s) 10/26/2019 11:08 AM Reason for Referral Specialty Diagnoses / Procedures Referred By De t Referred To Contact CT IMAGING Diagnoses Epigastric pain Procedures CT ABD/PEL WO IVCON CT ABD & PELVIS W/O CONTRAST Linsey Matthew MD [address] [place] [address] Ct Imaging Referral ID Status Reason Start Date Expiration Date V isits Requested Visits Authorized [id number] Closed Auto-Generate d Referral 03/23/2023 04/21/2024 1 1 Additional Source Comments INFORMATION SOURCE (unrecogn ized section and content) DATE CREATED AUTHOR AUTHOR'S ORGANIZ ATION 05/11/2023 [facility] DATE CREATED AUTHOR AUTHOR'S ORGANIZ ATION 07/21/2023 [facility] Source Comments (unrecognize d section and content) In the event this informatio n is protected by the Federal Confidentiality of Alcohol and Drug Abuse Patient Records regulations: The Federal rules restrict any use of the information to criminally investigate or prosecute any alcohol or drug abuse patient.[facility] the event this information is protected by the Federal Confidentiality of Alcohol and Drug Abuse Patient Records regulations: The Federal rules restrict any use of the information to criminally investigate or prosecute any alcohol or drug abuse patient.[facility] Hospital[facility] the event this information is protected by the Federal Confidentiality of Alcohol and Drug Abuse Patient Records regulations: The Federal rules restrict any use of the information to criminally investigate or prosecute any alcohol or drug abuse patient.[facility] HospitalIn the event this information is protected by the Federal Confidentiality of Alcohol and Drug Abuse Patient Records regulations: The Federal rules restrict any use of the information to criminally investigate or prosecute any alcohol or drug abuse patient.[facility] Hospital[facility] the event this information is protected by the Federal Confidentiality of Alcohol and Drug Abuse Patient Records regulations: The Federal rules restrict any use of the information to criminally investigate or prosecute any alcohol or drug abuse patient.[facility] Hospital[facility] the event this information is protected by the Federal Confidentiality of Alcohol and Drug Abuse Patient Records regulations: The Federal rules restrict any use of the information to criminally investigate or prosecute any alcohol or drug abuse patient.[facility] HospitalIn the event this information is protected by the Federal Confidentiality of Alcohol and Drug Abuse Patient Records regulations: The Federal rules restrict any use of the information to criminally investigate or prosecute any alcohol or drug abuse patient.[facility] HospitalIn the event this information is protected by the Federal Confidentiality of Alcohol and Drug Abuse Patient Records regulations: The Federal rules restrict any use of the information to criminally investigate or prosecute any alcohol or drug abuse patient.[facility] HospitalIn the event this information is protected by the Federal Confidentiality of Alcohol and Drug Abuse Patient Records regulations: The Federal rules restrict any use of the information to criminally investigate or prosecute any alcohol or drug abuse patient.[facility] HospitalIn the event this information is protected by the Federal Confidentiality of Alcohol and Drug Abuse Patient Records regulations: The Federal rules restrict any use of the information to criminally investigate or prosecute any alcohol or drug abuse patient.[facility] HospitalIn the event this information is protected by the Federal Confidentiality of Alcohol and Drug Abuse Patient Records regulations: The Federal rules restrict any use of the information to criminally investigate or prosecute any alcohol or drug abuse patient.[facility] HospitalIn the event this information is protected by the Federal Confidentiality of Alcohol and Drug Abuse Patient Records regulations: The Federal rules restrict any use of the information to criminally investigate or prosecute any alcohol or drug abuse patient.[facility] HospitalIn the event this information is protected by the Federal Confidentiality of Alcohol and Drug Abuse Patient Records regulations: The Federal rules restrict any use of the information to criminally investigate or prosecute any alcohol or drug abuse patient.[facility] HospitalIn the event this information is protected by the Federal Confidentiality of Alcohol and Drug Abuse Patient Records regulations: The Federal rules restrict any use of the information to criminally investigate or prosecute any alcohol or drug abuse patient.[facility] HospitalIn the event this information is protected by the Federal Confidentiality of Alcohol and Drug Abuse Patient Records regulations: The Federal rules restrict any use of the information to criminally investigate or prosecute any alcohol or drug abuse patient.[facility] HospitalIn the event this information is protected by the Federal Confidentiality of Alcohol and Drug Abuse Patient Records regulations: The Federal rules restrict any use of the information to criminally investigate or prosecute any alcohol or drug abuse patient.[facility] HospitalIn the event this information is protected by the Federal Confidentiality of Alcohol and Drug Abuse Patient Records regulations: The Federal rules restrict any use of the information to criminally investigate or prosecute any alcohol or drug abuse patient.[facility] HospitalIn the event this information is protected by the Federal Confidentiality of Alcohol and Drug Abuse Patient Records regulations: The Federal rules restrict any use of the information to criminally investigate or prosecute any alcohol or drug abuse patient.[facility] HospitalIn the event this information is protected by the Federal Confidentiality of Alcohol and Drug Abuse Patient Records regulations: The Federal rules restrict any use of the information to criminally investigate or prosecute any alcohol or drug abuse patient.[facility] HospitalIn the event this information is protected by the Federal Confidentiality of Alcohol and Drug Abuse Patient Records regulations: The Federal rules restrict any use of the information to criminally investigate or prosecute any alcohol or drug abuse patient.[facility] HospitalIn the event this information is protected by the Federal Confidentiality of Alcohol and Drug Abuse Patient Records regulations: The Federal rules restrict any use of the information to criminally investigate or prosecute any alcohol or drug abuse patient.[facility] HospitalIn the event this information is protected by the Federal Confidentiality of Alcohol and Drug Abuse Patient Records regulations: The Federal rules restrict any use of the information to criminally investigate or prosecute any alcohol or drug abuse patient.[facility] HospitalIn the event this information is protected by the Federal Confidentiality of Alcohol and Drug Abuse Patient Records regulations: The Federal rules restrict any use of the information to criminally investigate or prosecute any alcohol or drug abuse patient.[facility] Reason for Visit (unrecogniz ed section and [...] W/O CONTRAST Linsey Matthew MD [address] [place] [address] Ct Imaging Referral ID Status Reason Start Date Expiration Date V isits Requested Visits Authorized [id number] Closed Auto-Generate d Referral 03/23/2023 04/21/2024 1 1 Reason Comments Depression Diabetes Reason Onset Date Comments Refill Request 05/16/2023 Reason Comments Sinus Problem Reason Comments Refill Request Reason Onset Date Comments Refill Request 07/29/2023 Care Teams (unrecognized sec tion and content) [employer] Relationship Specialty Start Date End Date Jeffrey Pruett MD [address] [address] [employer] [address] [place] [address] PCP - General Internal Medicine 07/09/21 Sebas Torre MD [address] [place], [place] [phone] PCP Resident Internal Medicine 10/08/21 [employer] Relationship Specialty Start Date End Date Heather Saenz DO [address] [place] [address] PCP - General Internal Medicine 05/18/22 Sebas Torre MD [address] [place] [address] PCP Resident Internal Medicine 10/08/21 [employer] Mixer Relationship Specialty Start Date End Date Heather Saenz DO [address] [place] [address] PCP - General Internal Medicine 05/18/22 Sebas Torre MD 1 [place], [place] [id number] [phone] PCP Resident Internal Medicine 10/08/21 [employer]er Relationship Specialty Start Date End Date Heather Saenz DO [address] [place] [address] PCP - General Internal Medicine 05/18/22 Sebas Torre MD [address] [place] [address] PCP Resident Internal Medicine 10/08/21 [employer] Mixer Relationship Specialty Start Date End Date Heather Saenz DO [address] [place] [address] PCP - General Internal Medicine 05/18/22 Sebas Torre MD [address] [place] [address] PCP Resident Internal Medicine 10/08/21 [employer] Mixer Relationship Specialty Start Date End Date Heather Saenz DO [address] [place] [address] PCP - General Internal Medicine 05/18/22 Sebas Torre MD [address] [place] [address] PCP Resident Internal Medicine 10/08/21 [employer]er Relationship Specialty Start Date End Date Heather Saenz DO [address] [place] [address] PCP - General Internal Medicine 05/18/22 Sebas Torre MD [address] [place] [address] PCP Resident Internal Medicine 10/08/21 [employer]er Relationship Specialty Start Date End Date Heather Saenz DO [address] [place] [address] PCP - General Internal Medicine 05/18/22 Shannon Chiang DO 1 [place], [place] [phone] PCP Resident Internal Medicine 04/02/23 [employer] Mixer Relationship Specialty Start Date End Date SeraHeather blankenshipDO 1 [facility] [address]th [address] [place], [place] [id number] PCP - General Internal Medicine 05/18/22 Shannon Chiang DO 1 [place], [place] [phone] PCP Resident Internal Medicine 04/02/23 [employer]er Relationship Specialty Start Date End Date Blessing SaenzewDO 1 [facility] [address] [place], [place] [id number] PCP - General Internal Medicine 05/18/22 Shannon Chiang DO 1 [place], [place] [phone] PCP Resident Internal Medicine 04/02/23 [employer] Mixer Relationship Specialty Start Date End Date Sera HeatherDO 1 [facility] [address] [place] [address] PCP - General Internal Medicine 05/18/22 Sebas Torre MD 1 [facility], [address]th [place] [address] PCP Resident Internal Medicine 10/08/21 04/01/23 [employer] Mixer Relationship Specialty Start Date End Date Sera HeatherDO 1 [facility] [address]th Floor [place], [place] [phone] PCP - General Internal Medicine 05/18/22 Shannon Chiang DO 1 [place], [place] [phone] PCP Resident Internal Medicine 04/02/23 [employer] Mixer Relationship Specialty Start Date End Date Heather Saenz DO [address] [place], [place] [phone] PCP - General Internal Medicine 05/18/22 Shannon Chiang DO [address] [facility] [phone] PCP Resident Internal Medicine 04/02/23 [employer] Mixer Relationship Specialty Start Date End Date Heather Saenz DO [address] [facility] [address]th Floor [place], [place] [phone] PCP - General Internal Medicine 05/18/22 Shannon Chiang DO [address] [facility] [place] [phone] PCP Resident Internal Medicine 04/02/23 [employer] Mixer Relationship Specialty Start Date End Date Heather Saenz [address] [facility] [address] [place], [place] [phone] PCP - General Internal Medicine 05/18/22 Shannon Chiang DO [address] [place], [place] [phone] PCP Resident Internal Medicine 04/02/23 FOR RECORDS [...] BE BASED ON THE PRIMARY CLINICAL RECORDS. [employer] provides no warranty or guarantee of the accuracy or completeness of information in this document.
[2023-11-23 23:00] VITALS: BP 172/68; PULSE 108; RESP 18; TEMP 36.5; O2SAT 92
[2023-11-23 23:18] VITALS: BMI 16.6
[2023-11-23 23:26] LABS: Procalcitonin 0.14 ng/mL (0.00-0.09)
[2023-11-23 23:32] VITALS: BMI 16.6
[2023-11-23 23:44] VITALS: RESP 15
[2023-11-24] VITALS (23 sets, daily range): BP systolic 74–154; BP diastolic 48–73; PULSE 86–109; RESP 12–29; TEMP 36.2–36.8; O2SAT 84–99; BMI 16.6
[2023-11-24] MEDS: 0.9% Normal Saline (1000mL) 1,000 ML 75 ML IV (00:05)
[2023-11-24 00:16] LABS: ALB/GLOB Ratio 1.1 RATIO (0.9-2.4); AST(SGOT) 36 U/L (15-37); Alanine Aminotransfer ALT/SGPT 30 U/L (13-56); Albumin, Serum 3.5 g/dL (3.2-5.0); Alkaline Phosphatase 62 U/L (45-117); Anion Gap 3 (5-15); BUN 32 mg/dL (7-18); BUN/Creat Ratio 41.8 RATIO (10-20); Chloride 90 mmol/L (98-107); Creatinine, Serum 0.77 mg/dL (0.55-1.02); EST Glomerular Filtration Rate 77 mL/min (>60); Est Glom Filt Rate - Afr Amer 93 mL/min (>60); Estimated Creatinine Clearance 40.78 ml/min; Globulin 3.2 g/dL (2.2-4.2); Glucose 180 mg/dL (74-106); Potassium 4.3 mmol/L (3.5-5.1); Protein, Total 6.7 g/dL (6.4-8.2); Sodium Level 132 mmol/L (136-145)
[2023-11-24 01:07] LABS: Ionized Calcium 5.09 mg/dL (4.36-5.20)
[2023-11-24] MEDS: Acetaminophen 325 MG Tablet 650 MG PO (03:16)
[2023-11-24 07:16] LABS: Absolute Lymphocyte Count 0.22 X10^3/uL (0.83-4.51); Absolute Neutrophil Count 23.5 X10^3/uL (2.0-7.7); Basophil# 0.07 X10^3/uL; Basophil% 0.3 % (0-1); Hematocrit 39.9 % (37-47); Lymphocyte # 0.22 X10^3/ul (0.83-4.51); Lymphocyte % 0.9 % (19-41); Mean Corp Hgb Conc 30.1 g/dL (32-36); Mean Corpuscular Hgb 27.7 pg (27.0-32.0); Mean Corpuscular Volume 92.1 fL (81-99); Mean Platelet Vol. 9.9 fl (6.2-12.0); Monocyte# 0.63 X10^3/uL; Monocyte% 2.6 % (0-10); NRBC Flagged by Analyzer 0 % (0-5); Neutrophil # 23.45 X10^3/uL (2.7-7.7); Neutrophil % 95.7 % (47-70); POSITIVE DIFFERENTIAL YES; Platelet Count 297 K/mm3 (150-450); RBC Distribution Width CV 13.1 % (11.6-14.6); RBC Distribution Width SD 44.7 fl (35.1-43.9); Red Blood Count 4.33 M/mm3 (4.2-5.4); White Blood Count 24.5 K/mm3 (4.4-11.0)
[2023-11-24 07:17] LABS: Differential Indicated SCAN CRITERIA MET
--- NOTE | 2023-11-24 07:28 | EX.PCM.CONCC ---
Assessment & Plan Assessment/Plan (1) Acute on chronic respiratory failure with hypoxia and hypercapnia: PLAN: Plan RECOMMENDATIONS: 1. Initiate BiPAP therapy as ordered. Obtain follow-up arterial blood gas in 1 hour. 2. If tidal volumes are inadequate on BiPAP, transition to AVAPS therapy. 3. If there is improvement in the patient's ABG at follow-up, but she remains lethargic, obtain CT head for stroke rule out. 4. Discontinue sedating medications, including opiates. 5. Start scheduled bronchodilator therapy. 6. The patient will ultimately require CT-guided lung biopsy, given suspected underlying lung cancer. IMPRESSIONS: 1. Acute on chronic combined respiratory failure The patient has known COPD of unknown severity along with chronic hypoxemic respiratory failure, with a baseline oxygen requirement of 3 L/min, according to documentation. She does have a chronically elevated serum bicarbonate level, suggestive that she likely has a component of chronic CO2 retention, at her baseline. The patient is quite lethargic this morning and unable to answer any questions. Her ABG demonstrated a pCO2 greater than 100. Therefore, she was urgently placed on BiPAP therapy. We are going to obtain a follow-up blood gas in 1 hour. If the patient's ABG improved, but she continues to have a decreased level of consciousness, will obtain CT head to rule out stroke. In the interim, if the patient's tidal volumes are in adequate on BiPAP, she can be transition to AVAPS therapy. Lastly, the patient will be continued on scheduled bronchodilators as ordered. 2. Newly identified lung mass The patient has a very large right upper lobe lung mass, concerning for underlying malignancy. Ultimately, the patient will require CT-guided lung biopsy, for definitive diagnosis. If there is availability in radiology while the patient is still admitted to the hospital, the biopsy can be completed while inpatient. Alternatively, if there is no availability, the patient can follow-up in the pulmonary medicine clinic after discharge, at which time, we can arrange for percutaneous lung biopsy. This workup would not preclude the patient from undergoing surgery to address her femoral neck fracture. 3. Right femoral neck fracture Proceed with surgical intervention per the discretion of orthopedic surgery. Recommend perioperative use of bronchodilators and noninvasive positive pressure ventilatory support, as needed. 4. Encephalopathy Most likely metabolic in nature in the setting of acute CO2 retention. Management as noted above with BiPAP and follow-up ABG. TSH is within normal limits. 5. History of tobacco dependency, in remission/hypertension/hyperlipidemia/hypothyroidism Complicates care, management, recovery and prognosis. Continue supportive care along with home medications as indicated. This note was generated with [employer] dictation software. It may contain incorrect words, spelling, and punctuation that were not noted in checking the note before signing. HPI Consult Data Date of Consult: 11/24/23 HPI Narrative Reason for Consultation: COPD, lung mass HPI Narrative: The patient is a 77-year-old female, with a history as outlined below, who presented to the emergency department on November 23 after sustaining a mechanical fall at home which led to the right femoral neck fracture. According to hospital documentation, she has a history of former tobacco dependency, COPD of unknown severity and chronic hypoxemic respiratory failure. On presentation to the emergency department, the patient was documented to be afebrile and hemodynamically stable. Initial laboratory evaluation revealed a white blood cell count of 11,000. Chemistry profile was notable for a bicarbonate of 40 and normal creatinine. Initial chest x-ray demonstrated a right upper lobe cavitary lesion. Subsequent confirmatory CT chest demonstrated a large right upper lobe lung mass, concerning for underlying neoplasm. An additional 1.5 cm nodule was noted in the right middle lobe along with a right lower lobe nodule measuring 1.3 cm. Diffuse emphysematous changes were noted, along with bilateral pleural effusions. On my evaluation of the patient this morning, she clearly had a decrease level of consciousness. The patient would answer simple yes and no questions but would not provide any additional details. Therefore, additional history pertinent to her hospitalization, including COPD and tobacco abuse history were not able to be obtained. The patient's mental status was clearly different from that documented at the time of her presentation. An arterial blood gas was subsequently obtained which demonstrated a pCO2 of 125. The patient was then placed on noninvasive positive pressure ventilatory support. [facility] Medical History (Updated 11/24/23 @ 08:[address] Tone Hamilton DO) Anxiety CHF (congestive heart failure) Chronic hypoxic respiratory failure, on home oxygen therapy Congestive heart failure (CHF) COPD (chronic obstructive pulmonary disease) Former smoker Former tobacco use Hypercholesteremia Hypertension Hypothyroidism Hypothyroidism Migraines On home oxygen therapy On home oxygen therapy Osteoporosis Post-menopausal Home Medications Atorvastatin Calcium 40 mg PO DAILY 03/26/17 [History Last Taken 03/26/17] enalapril maleate 20 mg tablet 20 mg PO BID 03/26/17 [History Last Taken 03/26/17] fluticasone 250 mcg-salmeterol 50 mcg/dose blistr powdr for inhalation (Advair Diskus) 1 ea IH DAILY 03/26/17 [History Last Taken 03/26/17] hydrochlorothiazide 25 mg tablet 25 mg PO DAILY 03/26/17 [History Last Taken 03/26/17] levothyroxine 88 mcg tablet (Synthroid) 88 mcg PO DAILY 03/26/17 [History Last Taken 03/26/17] amlodipine 10 mg tablet 10 mg PO DAILY 11/23/23 [History Last Taken Unknown] tiotropium bromide 1.25 mcg/actuation mist for inhalation (Spiriva Respimat) 2 puff inhalation Q24H 11/23/23 [History Last Taken Unknown] Allergy/AdvReac Type Severity Reaction Status Date / Time No Known Allergies Allergy Verified 11/23/23 19:27 Family History Mother CAD (coronary artery disease) Hypertension Heart disease Myocardial infarction Father Hypertension Heart disease CVA (cerebral vascular accident) Surgical History History of thyroid surgery Social History household members: family Smoking Status: Former smoker how long ago did patient quit smoking: Quit 11/2004, smoked 2 ppd since youth until quit. alcohol intake: never substance use type: does not use ROS Review of Systems ROS Unobtainable: due to mental status Physical Exam Const Constitutional Narrative: The patient will open her eyes to questions and answer simple yes/no questions. She is not able to answer any orientation questions, however. HEENT normocephalic and head/scalp atraumatic Eyes PERRL and conjunctivae normal Neck supple General: trachea midline Chest Chest Narrative: Increased AP diameter. Resp Resp Narrative: Globally diminished air movement throughout all lung galvan. Effort and Inspection: tachypneic Cardio regular rate and regular rhythm GI normal to inspection, nondistended, normoactive bowel sounds Extremity no clubbing, cyanosis or edema Skin no rashes or lesions noted Neuro Neuro Narrative: The patient is quite lethargic. Globally decreased muscle strength throughout all extremities. Psych Mood & Affect: flat affect Lab / Micro Data 11/24/23 06:44 11/24/23 06:44 Labs: Laboratory Results - last 24 hr 11/23/23 20:20: WBC 10.5, RBC 3.95 L, Hgb 10.9 L, Hct 35.9 L, MCV 90.9, MCH 27.6, MCHC 30.4 L, RDW Std Deviation 42.9, RDW Coeff of Jomar 12.8, Plt Count 260, MPV 9.0, Immature Gran % (Auto) 0.300, Neut % (Auto) 81.6 H, Lymph % (Auto) 9.1 L, Catahoula % (Auto) 6.7, Eos % (Auto) 1.8, Baso % (Auto) 0.5, Absolute Neuts (auto) 8.6 H, Absolute Lymphs (auto) 0.96, Nucleated RBC % 0, Sodium 133 L, Potassium 4.3, Chloride 90 L, Carbon Dioxide 40.0 H, Anion Gap 3 L, BUN 28 H, Creatinine 0.75, Est GFR (MDRD) Af Amer 96, Est GFR (MDRD) Non-Af 80, BUN/Creatinine Ratio 37.5 H, Glucose 126 H, Calcium 11.0 H, Troponin I High Sens 21 11/23/23 22:52: Procalcitonin 0.14 H 11/23/23 23:40: Sodium 132 L, Potassium 4.3, Chloride 90 L, Carbon Dioxide 39.0 H, Anion Gap 3 L, BUN 32 H, Creatinine 0.77, Estim Creat Clear Calc 40.78, Est GFR (MDRD) Af Amer 93, Est GFR (MDRD) Non-Af 77, BUN/Creatinine Ratio 41.8 H, Glucose 180 H, Calcium 10.0, Total Bilirubin 0.50, AST 36, ALT 30, Alkaline Phosphatase 62, Total Protein 6.7, Albumin 3.5, Globulin 3.2, Albumin/Globulin Ratio 1.1 11/24/23 01:02: Ionized Calcium 5.09 11/24/23 06:44: WBC 24.5 H, RBC 4.33, Hgb 12.0, Hct 39.9, MCV 92.1, MCH 27.7, MCHC 30.1 L, RDW Std Deviation 44.7 H, RDW Coeff of Jomar 13.1, Plt Count 297, MPV 9.9, Immature Gran % (Auto) 0.500, Neut % (Auto) 95.7 H, Lymph % (Auto) 0.9 L, Catahoula % (Auto) 2.6, Eos % (Auto) 0.0, Baso % (Auto) 0.3, Absolute Neuts (auto) 23.5 H, Absolute Lymphs (auto) 0.22 L, Nucleated RBC % 0 Imaging Radiology Impression Ankle X-Ray 11/23/23 20:00 IMPRESSION: Possible osteopenia with no acute fracture or subluxation. Nonspecific soft tissue swelling as described. Electronically Signed: Kamla Valdivia MD at 20:39 EST Reading Location ID and State: [facility] , Service support , Chest X-Ray 11/23/23 20:00 IMPRESSION: Large cavitary lesion in the right mid upper lung suggestive of neoplasm versus cavitary infectious process. If indicated, follow-up with CT chest recommended. Left perihilar pneumonia versus less likely asymmetric vascular congestion/pulmonary interstitial edema. Electronically Signed: Kamla Valdivia MD at 20:44 EST Reading Location ID and State: [facility] , Service support , Femur X-Ray 11/23/23 20:00 IMPRESSION: Femoral neck fracture as described with superior displacement of the femoral shaft in relation to the head. No joint dislocation seen. Electronically Signed: Kamla Valdivia MD at 20:40 EST Reading Location ID and State: [facility] [employer] , Service support , Pelvis X-Ray 11/23/23 20:00 IMPRESSION: Right femoral neck/subcapital fracture as described with some degree of superior displacement of the femoral shaft in relation to the head. No joint dislocation. Electronically Signed: Kamla Valdivia MD at 20:42 EST Reading Location ID and State: [facility] , Service support , Tibia/Fibula X-Ray 11/23/23 20:00 IMPRESSION: Question osteopenia with no distinct fracture or subluxation seen. Electronically Signed: Kamla Valdivia MD at 21:26 EST Reading Location ID and State: [facility] / [place] , Service support , Chest CT 11/23/23 21:42 IMPRESSION: Large mass within the right upper lobe as described most compatible with neoplastic process. Additional right posterolateral confluent pleural-based masses most compatible with metastatic disease. Small nodules within the right lower lobe as described above, clinical correlation recommended. Bilateral pleural effusions, left larger than right. Possible left lower lobe pneumonitis with diffuse underlying emphysema. Electronically Signed: Kamla Valdivia MD at 22:05 EST Reading Location ID and State: [facility] / [place] , Service support , Charges/Coding Visit Charges Inpatient E&M: 62932 Init Hosp L3
[2023-11-24] MEDS: Budesonide Respules 0.5 MG/2 ML AMPUL.NEB. INHALATION ×2 (07:35→19:00)
[2023-11-24 07:51] LABS: ALB/GLOB Ratio 0.7 RATIO (0.9-2.4); AST(SGOT) 36 U/L (15-37); Alanine Aminotransfer ALT/SGPT 34 U/L (13-56); Alkaline Phosphatase 64 U/L (45-117); Anion Gap 2 (5-15); BUN 32 mg/dL (7-18); BUN/Creat Ratio 33.4 RATIO (10-20); Calcium,Total 9.9 mg/dL (8.5-10.1); Chloride 91 mmol/L (98-107); Creatinine, Serum 0.96 mg/dL (0.55-1.02); EST Glomerular Filtration Rate 60 mL/min (>60); Est Glom Filt Rate - Afr Amer 72 mL/min (>60); Estimated Creatinine Clearance 33.98 ml/min; Globulin 4.2 g/dL (2.2-4.2); Glucose 228 mg/dL (74-106); Potassium 4.9 mmol/L (3.5-5.1); Protein, Total 7.2 g/dL (6.4-8.2); Sodium Level 129 mmol/L (136-145); Thyroid Stim Hormone (TSH) 1.61 uIU/mL (0.358-3.74)
[2023-11-24 07:55] LABS: Differential Comment SCANNED
[2023-11-24 08:32] LABS: Base Excess 10 mmol/L (-2 to +2); Bicarbonate 39.4 mmol/L (22-26); Blood Gas Specimen Type ART; Mode Not entered; O2 Delivery Device Cannula; PO2 68 mmHG (75-100); SITE Not entered; SO2 83 % (95-99); Total Carbon Dioxide 43 mmol/L; pCO2 125.4 mmHg (35-45); pH 7.11 (7.35-7.45)
[2023-11-24 08:35] LABS: Bedside Glucose 209 mg/dL (74-106)
--- NOTE | 2023-11-24 09:07 | CPS ---
Pt was breathing shallow at this time. Didnt want breathing treatment on her face, had to hold treatment to her face with the mask.
--- NOTE | 2023-11-24 09:08 | NURSING ---
Dr. Hamilton came to this RN when he was up this am to access the pt that was charted as A&O x3. When this RN walked into the room pt was only answering yes and no questions. Dr. Hamilton called the hospital doc to see if pt was having a stroke. V/s were stable and blood sugar was 209. Blood gases drawn and determined her CO2 level was elevated and pt was started on bipap. Daughter in room and was made aware of what was going on.
[2023-11-24 09:51] LABS: Base Excess 7 mmol/L (-2 to +2); Bicarbonate 35.2 mmol/L (22-26); Blood Gas Specimen Type ART; Mode Not entered; O2 Delivery Device BiPAP; PEEP 6; PO2 76 mmHG (75-100); RR 12; SITE R Radial; SO2 90 % (95-99); Total Carbon Dioxide 38 mmol/L; pCO2 87.4 mmHg (35-45); pH 7.21 (7.35-7.45)
--- NOTE | 2023-11-24 09:57 | PCM.PN.HOSP ---
Subjective Subjective Altered this morning could not communicate other than saying yes Objective Data Objective Data Vital Signs: Vital Signs Temp Pulse Resp BP Pulse Ox O2 Del Method O2 Flow Rate 97.9 F 87 28 H 120/48 L 91 Nasal Cannula 5 11/24/23 08:26 11/24/23 08:35 11/24/23 08:35 11/24/23 08:26 11/24/23 08:35 11/24/23 09:14 11/24/23 09:14 FiO2 45 11/24/23 08:35 Oxygen Flow Rate (L/min) 5 Oxygen Delivery Method Nasal Cannula Weight: 99 lb 13.91 oz Body Mass Index (BMI) 16.6 Lab / Micro Data 11/24/23 06:44 11/24/23 06:44 Labs: Laboratory Results - last 24 hr 11/23/23 20:20: WBC 10.5, RBC 3.95 L, Hgb 10.9 L, Hct 35.9 L, MCV 90.9, MCH 27.6, MCHC 30.4 L, RDW Std Deviation 42.9, RDW Coeff of Jomar 12.8, Plt Count 260, MPV 9.0, Immature Gran % (Auto) 0.300, Neut % (Auto) 81.6 H, Lymph % (Auto) 9.1 L, [place] % (Auto) 6.7, Eos % (Auto) 1.8, Baso % (Auto) 0.5, Absolute Neuts (auto) 8.6 H, Absolute Lymphs (auto) 0.96, Nucleated RBC % 0, Sodium 133 L, Potassium 4.3, Chloride 90 L, Carbon Dioxide 40.0 H, Anion Gap 3 L, BUN 28 H, Creatinine 0.75, Est GFR (MDRD) Af Amer 96, Est GFR (MDRD) Non-Af 80, BUN/Creatinine Ratio 37.5 H, Glucose 126 H, Calcium 11.0 H, Troponin I High Sens 21 11/23/23 22:52: Procalcitonin 0.14 H 11/23/23 23:40: Sodium 132 L, Potassium 4.3, Chloride 90 L, Carbon Dioxide 39.0 H, Anion Gap 3 L, BUN 32 H, Creatinine 0.77, Estim Creat Clear Calc 40.78, Est GFR (MDRD) Af Amer 93, Est GFR (MDRD) Non-Af 77, BUN/Creatinine Ratio 41.8 H, Glucose 180 H, Calcium 10.0, Total Bilirubin 0.50, AST 36, ALT 30, Alkaline Phosphatase 62, Total Protein 6.7, Albumin 3.5, Globulin 3.2, Albumin/Globulin Ratio 1.1 11/24/23 01:02: Ionized Calcium 5.09 11/24/23 06:44: WBC 24.5 H, RBC 4.33, Hgb 12.0, Hct 39.9, MCV 92.1, MCH 27.7, MCHC 30.1 L, RDW Std Deviation 44.7 H, RDW Coeff of Jomar 13.1, Plt Count 297, MPV 9.9, Immature Gran % (Auto) 0.500, Neut % (Auto) 95.7 H, Lymph % (Auto) 0.9 L, [place] % (Auto) 2.6, Eos % (Auto) 0.0, Baso % (Auto) 0.3, Absolute Neuts (auto) 23.5 H, Absolute Lymphs (auto) 0.22 L, Nucleated RBC % 0, Differential Comment SCANNED, Diff Path Review January, Sodium 129 L, Potassium 4.9, Chloride 91 L, Carbon Dioxide 36.0 H, Anion Gap 2 L, BUN 32 H, Creatinine 0.96, Estim Creat Clear Calc 33.98, Est GFR (MDRD) Af Amer 72, Est GFR (MDRD) Non-Af 60, BUN/Creatinine Ratio 33.4 H, Glucose 228 H, Calcium 9.9, Total Bilirubin 0.30, AST 36, ALT 34, Alkaline Phosphatase 64, Total Protein 7.2, Albumin 3.0 L, Globulin 4.2, Albumin/Globulin Ratio 0.7 L, TSH 1.61, Blood Type A POSITIVE, Antibody Screen NEGATIVE 11/24/23 08:15: POC Glucose 209 H ABG Data ABG results: ABG 11/24/23 11/24/23 08:27 09:46 Specimen Type ART ART Sample Site Not entered R Radial pH 7.11 L* 7.21 L Bicarbonate Actual 39.4 H 35.2 H Total CO2 43 38 Base Excess 10 H 7 H O2 Saturation 83 L 90 L O2 % 5.0 45.0 ABG pCO2 125.4 H* 87.4 H* ABG pO2 68 L 76 Respiration Rate 12 O2 Delivery Device Cannula BiPAP Vent Mode Not entered Not entered POC PEEP 6 Crit Call To/Read Back Yes Yes Blood Gas Notified Whom estrella de la rosa Blood Gas Notified Time 08:28:55 09:47:58 Radiography Diagnostic Testing: Radiology Impression Ankle X-Ray 11/23/23 20:00 IMPRESSION: Possible osteopenia with no acute fracture or subluxation. Nonspecific soft tissue swelling as described. Electronically Signed: Kamla Valdivia MD at 20:39 EST Reading Location ID and State: [employer] , Service support , Chest X-Ray 11/23/23 20:00 IMPRESSION: Large cavitary lesion in the right mid upper lung suggestive of neoplasm versus cavitary infectious process. If indicated, follow-up with CT chest recommended. Left perihilar pneumonia versus less likely asymmetric vascular congestion/pulmonary interstitial edema. Electronically Signed: Kamla Valdivia MD at 20:44 EST Reading Location ID and State: [employer] , Service support , Femur X-Ray 11/23/23 20:00 IMPRESSION: Femoral neck fracture as described with superior displacement of the femoral shaft in relation to the head. No joint dislocation seen. Electronically Signed: Kamla Valdivia MD at 20:40 EST Reading Location ID and State: [employer] [facility] [employer] , Service support , Pelvis X-Ray 11/23/23 20:00 IMPRESSION: Right femoral neck/subcapital fracture as described with some degree of superior displacement of the femoral shaft in relation to the head. No joint dislocation. Electronically Signed: Kamla Valdivia MD at 20:42 EST Reading Location ID and State: [employer] [facility] [employer] , Service support , Tibia/Fibula X-Ray 11/23/23 20:00 IMPRESSION: Question osteopenia with no distinct fracture or subluxation seen. Electronically Signed: Kamla Valdivia MD at 21:26 EST , Chest CT 11/23/23 21:42 IMPRESSION: Large mass within the right upper lobe as described most compatible with neoplastic process. Additional right posterolateral confluent pleural-based masses most compatible with metastatic disease. Small nodules within the right lower lobe as described above, clinical correlation recommended. Bilateral pleural effusions, left larger than right. Possible left lower lobe pneumonitis with diffuse underlying emphysema. Electronically Signed: Kamla Valdivia MD at 22:05 EST , Physical Exam Narrative General: Alert, disoriented, no apparent distress, cachectic HEENT: Atraumatic, PERRLA, EOMI, Normocephalic Oral: Dry mucosa Neck: Supple, No JVD Lungs: Diminished, Normal air movement, No rhonchi, No wheeze, No rales Cardiovascular: Regular rate, Regular Rhythm, Normal S1, Normal S2, No murmurs Abdomen: Soft, Non Tender, Non-Distended, No Hepato-splenomegaly Extremities: No edema, Capillary Refill Less than 3 Seconds Skin: No rashes, No breakdown Musculoskeletal: No Tenderness to Palpation of Joints or Extremities Neurological: Does not follow commands Psych/Mental Status: Flat Assessment & Plan Assessment/Plan (1) Hip fracture: PLAN: Plan 1. Acute hypercapnic respiratory failure in the setting of chronic COPD with chronic hypoxic respiratory failure and a large cavitary lesion in the right mid upper lung ? Initially on presentation she was maintaining her oxygen saturations on her baseline 3 L and she was alert and oriented ? This morning I was notified by the title investigator that on his evaluation of her he was concern for possible stroke on arrival she was moving her extremities other than her right lower extremity given her fracture however she was not alert or oriented and cannot communicate ? An ABG was performed which demonstrated pCO2 of 120 and should be placed on BiPAP. ? Will continue with noninvasive ventilatory management until she becomes more alert. Would recommend that when she has surgery that we attempted not heavily sedate her and give her a longer amount of time in PACU for recovery prior to determining disposition would also recommend BiPAP after extubation ? She will need a biopsy of the cavitary lesion in the right lung though I do not believe that this precludes her from getting her hip repaired 2. Right femoral neck fracture status post mechanical fall ? As this is not elective she will proceed with surgery ? Continue with pain medications as able given her hypercapnic respiratory failure ? Appreciate orthopedic surgery's assistance 3. Essential HTN/HLD ? Blood pressure stable ? Will obtain echocardiogram ? Continue with Lipitor ? We will monitor make adjustments as necessary 4. Hypothyroidism ? Stable ? Continue with Synthroid ? She is status post subtotal thyroidectomy DVT: SCDs Charges/Coding Visit Charges Inpatient E&M: 62760 Subs Hosp L3
--- NOTE | 2023-11-24 10:28 | CASEMGMT ---
Addendum entered by Angie Wolff 11/24/23 11:00: Spoke [facility] and confirmed home oxygen Rx. Angie Wolff MSN, RN, CCM Original Note: RN DARIANA Assessment: Face to Face with pt for initial transition planning/care coordination assessment. Pt on bipap, in bed. Pt did not open eyes when RN DARIANA began talking. Family at bedside, pts daughters. RN DARIANA introduced self and role at [facility] [place], Ibrahima Montano agreeable to speak with RN DARIANA. Care providers, pharmacy, and demographics verified/updated. Admitting Dx: Fall, hip fracture PCP: Follows with Internal Medicine at [facility] in the resident clinic Specialists: [facility], last saw in March Preferred Pharmacy: [facility] Insurance: [facility], Medicaid Crossover Prescription Benefit: yes LNOK: Daughters, primary contact is ibrahima Montano Living Arrangements: Pt lives with ibrahima Montano in a single story home with basement. Pt does not go down into the basement at baseline. There are a couple stairs into the home from the front entrance and in the garage. The stairs in from the garage have a rail. Pt is independent with dressing but her other daughter assists with bathing. Transportation: Daughter Dusty provides transportation. DME: Pt wears oxygen at 3L continuous, she has a home concentrator and a portable tank. Daughter reports it is provided by [facility], pt also uses a shower chair. Pt has a walker and cane as well, but does not use them, pt normally furniture walks or uses the reyes. HHC/SNF: No history of either CM to follow. Advised daughter to ask CM if any further question/concerns/needs arise, voices understanding. Both daughters confirmed that she does not have a Living Will or HCPOA that they are aware of, but has told them in the past that they know what her wishes are. Pt Goal: unable to discuss at this time Plan: TBD
[2023-11-24] MEDS: 0.9% Saline Lock 10 ML Syringe IV ×2 (11:19→18:23)
[2023-11-24] MEDS: Morphine 2 MG/ML Syringe IV ×3 (11:19→22:25)
[2023-11-24] MEDS: Lactated Ringers 1,000 ML 15 ML IV (13:03)
--- NOTE | 2023-11-24 13:17 | PCM.CONS.GEN ---
Assessment & Plan Assessment/Plan (1) Fracture of femoral neck, closed: QUALIFIERS: Encounter type: initial encounter Laterality: right Qualified Code(s): S72.001A - Fracture of unspecified part of neck of right femur, initial encounter for closed fracture PLAN: Plan Patient has multiple medical comorbidities and is high risk for surgery, thorough discussion was had with the family in regards to her injury risk benefits alternatives of surgery versus nonsurgical intervention including risk of bleeding infection nerve artery tissue damage need for further surgery continued pain postoperative dislocation leg length discrepancy intraoperative fracture DVT Informed consent obtained for right hip hemiarthroplasty antibiotics on-call HPI Consult Data Date of Consult: 11/24/23 HPI Narrative HPI Narrative: ANG VALLE, is a 77 F who presents after ground-level fall yesterday injuring her right hip sustaining a displaced femoral neck fracture. She does live with her daughter she does have a walker and a cane but she does not use them she holds onto the reyes. She is not able to give any history as she is her current medical state is diminished however her daughters are here and speak for her. [facility] Medical History (Updated 11/24/23 @ 13:[address] Nikolay Navarro, ) Anxiety CHF (congestive heart failure) Chronic hypoxic respiratory failure, on home oxygen therapy Congestive heart failure (CHF) COPD (chronic obstructive pulmonary disease) Former smoker Former tobacco use Hypercholesteremia Hypertension Hypothyroidism Hypothyroidism Migraines On home oxygen therapy On home oxygen therapy Osteoporosis Post-menopausal Home Medications Atorvastatin Calcium 40 mg PO DAILY 03/26/17 [History Last Taken 03/26/17] enalapril maleate 20 mg tablet 20 mg PO BID 03/26/17 [History Last Taken 03/26/17] fluticasone 250 mcg-salmeterol 50 mcg/dose blistr powdr for inhalation (Advair Diskus) 1 ea IH DAILY 03/26/17 [History Last Taken 03/26/17] hydrochlorothiazide 25 mg tablet 25 mg PO DAILY 03/26/17 [History Last Taken 03/26/17] levothyroxine 88 mcg tablet (Synthroid) 88 mcg PO DAILY 03/26/17 [History Last Taken 03/26/17] amlodipine 10 mg tablet 10 mg PO DAILY 11/23/23 [History Last Taken Unknown] tiotropium bromide 1.25 mcg/actuation mist for inhalation (Spiriva Respimat) 2 puff inhalation Q24H 11/23/23 [History Last Taken Unknown] Allergy/AdvReac Type Severity Reaction Status Date / Time No Known Allergies Allergy Verified 11/23/23 19:27 Family History Mother CAD (coronary artery disease) Hypertension Heart disease Myocardial infarction Father Hypertension Heart disease CVA (cerebral vascular accident) Surgical History History of thyroid surgery Social History household members: family Smoking Status: Former smoker how long ago did patient quit smoking: Quit 11/2004, smoked 2 ppd since youth until quit. alcohol intake: never substance use type: does not use Physical Exam Const Negative for alert, oriented x3 or no apparent distress Extremity Extremity Narrative: Hip flexed externally rotated, palpable pedal pulse compartments soft she is unable to comply with neurologic testing Lab / Micro Data 11/24/23 06:44 11/24/23 06:44 Labs: Laboratory Results - last 24 hr 11/23/23 20:20: WBC 10.5, RBC 3.95 L, Hgb 10.9 L, Hct 35.9 L, MCV 90.9, MCH 27.6, MCHC 30.4 L, RDW Std Deviation 42.9, RDW Coeff of Jomar 12.8, Plt Count 260, MPV 9.0, Immature Gran % (Auto) 0.300, Neut % (Auto) 81.6 H, Lymph % (Auto) 9.1 L, [place] % (Auto) 6.7, Eos % (Auto) 1.8, Baso % (Auto) 0.5, Absolute Neuts (auto) 8.6 H, Absolute Lymphs (auto) 0.96, Nucleated RBC % 0, Sodium 133 L, Potassium 4.3, Chloride 90 L, Carbon Dioxide 40.0 H, Anion Gap 3 L, BUN 28 H, Creatinine 0.75, Est GFR (MDRD) Af Amer 96, Est GFR (MDRD) Non-Af 80, BUN/Creatinine Ratio 37.5 H, Glucose 126 H, Calcium 11.0 H, Troponin I High Sens 21 11/23/23 22:52: Procalcitonin 0.14 H 11/23/23 23:40: Sodium 132 L, Potassium 4.3, Chloride 90 L, Carbon Dioxide 39.0 H, Anion Gap 3 L, BUN 32 H, Creatinine 0.77, Estim Creat Clear Calc 40.78, Est GFR (MDRD) Af Amer 93, Est GFR (MDRD) Non-Af 77, BUN/Creatinine Ratio 41.8 H, Glucose 180 H, Calcium 10.0, Total Bilirubin 0.50, AST 36, ALT 30, Alkaline Phosphatase 62, Total Protein 6.7, Albumin 3.5, Globulin 3.2, Albumin/Globulin Ratio 1.1 11/24/23 01:02: Ionized Calcium 5.09 11/24/23 06:44: WBC 24.5 H, RBC 4.33, Hgb 12.0, Hct 39.9, MCV 92.1, MCH 27.7, MCHC 30.1 L, RDW Std Deviation 44.7 H, RDW Coeff of Jomar 13.1, Plt Count 297, MPV 9.9, Immature Gran % (Auto) 0.500, Neut % (Auto) 95.7 H, Lymph % (Auto) 0.9 L, [place] % (Auto) 2.6, Eos % (Auto) 0.0, Baso % (Auto) 0.3, Absolute Neuts (auto) 23.5 H, Absolute Lymphs (auto) 0.22 L, Nucleated RBC % 0, Differential Comment SCANNED, Diff Path Review January, Sodium 129 L, Potassium 4.9, Chloride 91 L, Carbon Dioxide 36.0 H, Anion Gap 2 L, BUN 32 H, Creatinine 0.96, Estim Creat Clear Calc 33.98, Est GFR (MDRD) Af Amer 72, Est GFR (MDRD) Non-Af 60, BUN/Creatinine Ratio 33.4 H, Glucose 228 H, Calcium 9.9, Total Bilirubin 0.30, AST 36, ALT 34, Alkaline Phosphatase 64, Total Protein 7.2, Albumin 3.0 L, Globulin 4.2, Albumin/Globulin Ratio 0.7 L, TSH 1.61, Blood Type A POSITIVE, Antibody Screen NEGATIVE 11/24/23 08:15: POC Glucose 209 H ABG Data ABG results: ABG 11/24/23 11/24/23 08:27 09:46 Specimen Type ART ART Sample Site Not entered R Radial pH 7.11 L* 7.21 L Bicarbonate Actual 39.4 H 35.2 H Total CO2 43 38 Base Excess 10 H 7 H O2 Saturation 83 L 90 L O2 % 5.0 45.0 ABG pCO2 125.4 H* 87.4 H* ABG pO2 68 L 76 Respiration Rate 12 O2 Delivery Device Cannula BiPAP Vent Mode Not entered Not entered POC PEEP 6 Crit Call To/Read Back Yes Yes Blood Gas Notified Whom estrella de la rosa Blood Gas Notified Time 08:28:55 09:47:58 Imaging Radiology Impression Ankle X-Ray 11/23/23 20:00 IMPRESSION: Possible osteopenia with no acute fracture or subluxation. Nonspecific soft tissue swelling as described. Electronically Signed: Kamla Valdivia MD at 20:39 EST Reading Location ID and State: [employer] [facility] [employer] , Service support , Chest X-Ray 11/23/23 20:00 IMPRESSION: Large cavitary lesion in the right mid upper lung suggestive of neoplasm versus cavitary infectious process. If indicated, follow-up with CT chest recommended. Left perihilar pneumonia versus less likely asymmetric vascular congestion/pulmonary interstitial edema. Electronically Signed: Kamla Valdivia MD at 20:44 EST Reading Location ID and State: [employer] [facility] [employer] , Service support , Femur X-Ray 11/23/23 20:00 IMPRESSION: Femoral neck fracture as described with superior displacement of the femoral shaft in relation to the head. No joint dislocation seen. Electronically Signed: Kamla Valdivia MD at 20:40 EST Reading Location ID and State: [employer] [facility] [employer] , Service support , Pelvis X-Ray 11/23/23 20:00 IMPRESSION: Right femoral neck/subcapital fracture as described with some degree of superior displacement of the femoral shaft in relation to the head. No joint dislocation. Electronically Signed: Kamla Valdivia MD at 20:42 EST , Tibia/Fibula X-Ray 11/23/23 20:00 IMPRESSION: Question osteopenia with no distinct fracture or subluxation seen. Electronically Signed: Kamla Valdivia MD at 21:26 EST Reading Location ID and State: [facility] / [place] , Service support , Chest CT 11/23/23 21:42 IMPRESSION: Large mass within the right upper lobe as described most compatible with neoplastic process. Additional right posterolateral confluent pleural-based masses most compatible with metastatic disease. Small nodules within the right lower lobe as described above, clinical correlation recommended. Bilateral pleural effusions, left larger than right. Possible left lower lobe pneumonitis with diffuse underlying emphysema. Electronically Signed: Kamla Valdivia MD at 22:05 EST Reading Location ID and State: [facility] / [place] , Service support , Echocardiogram 11/23/23 22:53 Interpretation Summary Normal LV size. Left ventricular systolic function is hyperdynamic. The left ventricular ejection fraction is 70 %. There is mild mitral annular calcification. Stage 1 diastolic dysfunction. Pulmonary artery systolic pressure is 59 mmHg. Moderate pulmonary hypertension. Ordering Physician: Ani Gillis Performed By: Madelyn Acosta RDCS
--- NOTE | 2023-11-24 13:30 | HIP_PTH ---
PATHOLOGY RESULTS PATIENT: ANG VALLE LOC: MS3 U#:[id number] AGE/SX: 77/F ROOM: CA311 RE11/23/[address]: Dr. Bakari Lindsey DO : 1945 BED: 1 DIS: 11/28/2023 SPEC #: [id number] RECD: 11/25/23 10:14 STATUS: YUE RAJWINDER #: [id number] ASHLEY: 11/24/23 13:[address]: Nikolay Navarro DEPT: SURGICAL PATHOLOGY RECD BY: Carly Wood ENTERED: 11/25/23 10:14 SP TYPE: TOTAL HIP OTHR DR: MD Dr. Tone Arevalo DO Dr. Joseph Borruso, DO Dr. Nicholas F Kotsonis, MD No Primary Care Phys Tissues: Hip, NOS Procedures: Decalcification bone/plaque Surgery Specimen Level IV Comments: @ Ordering doctor for BRODERICK edited from to DR.JBORRU Salvador by JENNIFER at 12/01/23 152 @ Ordering doctor for ROBINSONIV edited from to DR.JBORRU Salvador by JENNIFER at 12/01/23 1522 @ Submitting doctor edited from to DR.JBORRU Salvador by JENNIFER at 12/01/23 1522 HEADER OPERATION: Right hip hemiarthroplasty PRE-OP DIAGNOSIS: Right hip femoral neck fracture TISSUE SUBMITTED: Right hip femoral head MICROSCOPIC DIAGNOSIS Right femoral head, total hip replacement/resection: Femoral head and detached pieces of bone with focal area of hemorrhage, clinically femoral neck fracture. GRIS:keyana 11/30/2023 MICROSCOPIC DESCRIPTION Slides are reviewed. GROSS DESCRIPTION Received is one container labeled with the patient's name and designated right femoral head. The specimen consists of a pearce femoral head measuring 4.5 x 4.5 x 4.5 cm. The articular surface is smooth. Resection margin is irregular and hemorrhagic. Also present in the specimen container are multiple detached pieces of bone measuring in aggregate 4.5 x 4.5 x 2.5 cm. No soft tissue is identified. Machine Marker sections are submitted in two cassettes after decalcification as follows: 1 - detached pieces of bone, 2 - femoral head. / Wali 11/25/2023 TC:5 CPT: 14402, 59335
[2023-11-24] MEDS: Cefazolin 2 GM in 0.9% Normal Saline (100mL Bag) 100 ML IV ×2 (13:45→21:03)
[2023-11-24] MEDS: TRANEXAMIC ACID 1,000 MG in 0.9% Normal Saline (100mL Bag) 100 ML 440 MG IV (13:50)
--- NOTE | 2023-11-24 14:55 | CPS ---
Per Pulmonary, switched pt settings to AVAPS at this time. Pt was taken to OR. Anesthesia made aware of settings. Anesthesia is made aware that RT is there to change settings per their verbal order. RT made sure V60 was plugged in and hooked up to O2 at this time and stayed until Anesthesia said RT could leave.
--- NOTE | 2023-11-24 15:32 | RAD_ITS ---
INDICATION: Post Op EXAMINATION/TECHNIQUE: X-RAY - XR Hip Unilateral with Pelvis when performed; 2-3 Views COMPARISON: Prior study dated: 11/23/2023 AP pelvis FINDINGS: 2 views show interval right hip replacement with overlying skin jessi and subcutaneous emphysema. Overall alignment anatomic. RAD/Hip Min 2 Views (Portable) IMPRESSION: Status post right hip replacement. Electronically Signed: Doe Castle MD at 17:14 EST ,
--- NOTE | 2023-11-24 15:35 | PCM.OP.BLANK ---
Operative Report Date of Procedure: 11/24/23 Preoperative diagnosis: Right hip femoral neck fracture displaced Postoperative diagnosis: Same Procedure: Right hip hemiarthroplasty Implants: Ariel cemented stem size 6 132 degree neck angle 0 neck length 50 mm outer diameter bipolar head Anesthesia: Spinal EBL: 75 cc Complications: None Condition: Stable to PACU Indication for procedure: This is a 77-year-old female patient sustained right femoral neck fracture displaced after ground-level fall she has multiple medical comorbidities and was seen and cleared by her medical team. plans for definitive hemiarthroplasty were discussed including risks benefits and alternatives of the procedure were reviewed with the patient including risk of bleeding infection nerve artery tissue damage need for further surgery continue pain postoperative hip precaution restrictions leg length discrepancy and dislocation. Procedure: Patient was met in the preoperative holding area once again the operative extremity was identified by both patient and physician and was marked. Patient was met by anesthesia and brought to the operating room where anesthesia was started . The patient was then positioned in the lateral decubitus position on a well-padded pegboard with an axillary roll. All bony prominences were checked and padded. The patient was prepped and draped in the usual sterile fashion. A timeout was called to ensure the proper patient procedure and extremity were being contemplated. Anatomic landmarks were palpated and marked for a standard posterior lateral approach. A timeout was called to ensure the proper patient procedure and extremity were being contemplated. A 10 blade scalpel was used to make a posterior incision through the skin and subcutaneous tissue. In retractors were used and electrocautery was used to maintain meticulous hemostasis and dissect full-thickness flaps until the gluteal fascia was reached. The gluteal fascia was incised in line with the gluteal fibers. The bursal tissue was then freed from the underside and a Charnley retractor was placed. The fatpad was elevated off of the external rotators with electrocautery and the external rotators were dissected off of the greater trochanter including the piriformis and were tagged with #1 Ethibond for later repair. The joint capsule opened with posterior trapdoor technique. A femoral neck cutting guide was used to ashwin the neck with a Bovie and an oscillating saw was used to complete the femoral neck cut. the fracture was visualized and with the use of a corkscrew and a skid the femoral head was removed and sized. We then trialed with the matching sizes . Hohmann was placed around the lesser trochanter. A femoral elevator was used. As well as a pointed wide Hohmann around the lesser trochanter and a Hohmann to help retract the gluteus medius. A box chisel was used to remove excess lateral neck followed by a canal finder and a lateralizing reamer. This was followed by sequential broaches. Attention was made of the version within the canal. Once the final broach was seated we then trialed and reduced the hip it was determined that a 132 degree neck angle with a 0 neck length was the appropriate size. We then checked stability with shuck testing as well as flexion and interminal rotation then proceeded with hip extension and checked leg lengths at the knees and heels. At this point trials were removed. The canal was thoroughly irrigated with the pulse lavage centralizer was measured , a cement restrictor was placed a suction tampon was inserted while the cement was mixed cement gun was used to fill the canal with the use of pressure riser followed by the insertion of the femoral stem was inserted. We held this in place until the cemented fully hardened, we re-trialed and then proceeded to impact the femoral head onto the Chema taper. We then surgically reduce the hip check stability again and leg lengths and were satisfied. irricept rinse was allowed to sit for 1 minutes while everyone changed their gloves. Thorough irrigation was performed. Followed by closure of the external rotators with #2 FiberWire followed by closure of gluteal fascia with #1 Ethibond. 0 Vicryl fat stitches and 2-0 Vicryl subcutaneous stitches and jessi in the skin. Dressing was applied in the form of mepilex AG dressing and an abduction pillow was placed. Patient tolerated the procedure well there was no intraoperative complications all counts were correct and the patient was brought back to the PACU in stable condition
[2023-11-24] MEDS: Ipratropium/Albuterol Sulfate 3 ML AMPUL.NEB INHALATION ×2 (19:00→22:59)
[2023-11-25] VITALS (15 sets, daily range): BP systolic 105–120; BP diastolic 57–89; PULSE 106–123; RESP 14–30; TEMP 36.6–37.4; O2SAT 91–98; BMI 16.6
[2023-11-25] MEDS: Ipratropium/Albuterol Sulfate 3 ML AMPUL.NEB INHALATION ×6 (03:08→23:21)
[2023-11-25] MEDS: Cefazolin 2 GM in 0.9% Normal Saline (100mL Bag) 100 ML IV ×2 (05:20→13:09)
[2023-11-25] MEDS: Morphine 2 MG/ML Syringe IV ×5 (05:25→20:55)
[2023-11-25 05:51] LABS: Absolute Lymphocyte Count 0.41 X10^3/uL (0.83-4.51); Absolute Neutrophil Count 16.7 X10^3/uL (2.0-7.7); Basophil# 0.02 X10^3/uL; Basophil% 0.1 % (0-1); Hematocrit 31.3 % (37-47); Hemoglobin 9.8 g/dL (12.0-15.0); Lymphocyte # 0.41 X10^3/ul (0.83-4.51); Lymphocyte % 2.3 % (19-41); Mean Corp Hgb Conc 31.3 g/dL (32-36); Mean Corpuscular Hgb 28.6 pg (27.0-32.0); Mean Corpuscular Volume 91.3 fL (81-99); Mean Platelet Vol. 9.9 fl (6.2-12.0); Monocyte# 0.62 X10^3/uL; Monocyte% 3.5 % (0-10); NRBC Flagged by Analyzer 0 % (0-5); Neutrophil # 16.71 X10^3/uL (2.7-7.7); Neutrophil % 93.7 % (47-70); POSITIVE DIFFERENTIAL YES; Platelet Count 227 K/mm3 (150-450); RBC Distribution Width CV 13.4 % (11.6-14.6); RBC Distribution Width SD 44.4 fl (35.1-43.9); Red Blood Count 3.43 M/mm3 (4.2-5.4); White Blood Count 17.8 K/mm3 (4.4-11.0)
[2023-11-25 06:24] LABS: Anion Gap 5 (5-15); BUN 50 mg/dL (7-18); Calcium,Total 9.4 mg/dL (8.5-10.1); Chloride 96 mmol/L (98-107); Creatinine, Serum 1.47 mg/dL (0.55-1.02); EST Glomerular Filtration Rate 36 mL/min (>60); Est Glom Filt Rate - Afr Amer 44 mL/min (>60); Estimated Creatinine Clearance 22.19 ml/min; Glucose 137 mg/dL (74-106); Potassium 5.1 mmol/L (3.5-5.1); Sodium Level 135 mmol/L (136-145)
--- NOTE | 2023-11-25 06:37 | RAD_ITS ---
STUDY: X-RAY - ABDOMEN/PELVIS REASON FOR EXAM: Female, 77 years old. Distended ABD TECHNIQUE: Single AP view of the abdomen / pelvis. COMPARISON: None. FINDINGS: There is blunting of the right costophrenic angle. There is evidence of the gaseous distention of the stomach as well as small bowel loops and colon down to the rectum. Fecal material is seen in the region of the cecum. Findings are in keeping with an ileus pattern. There is no demonstrated free abdominal air. The visualized liver, spleen and kidneys are grossly normal in size and morphology. Normal soft tissue structures. Status post right total hip replacement. RAD/Abdomen Single View (Portable) IMPRESSION: Findings in keeping with ileus pattern. Electronically Signed: Giovani Evans MD at 8:25 EST ,
[2023-11-25] MEDS: Budesonide Respules 0.5 MG/2 ML AMPUL.NEB. INHALATION ×2 (07:13→19:27)
--- NOTE | 2023-11-25 07:40 | PN.CC_ITS ---
Assessment & Plan Assessment/Plan (1) Acute on chronic respiratory failure with hypoxia and hypercapnia: PLAN: Plan RECOMMENDATIONS: 1. Obtain follow-up ABG this morning. If respiratory acidosis is still present, will transition to AVAPS therapy. 2. Place NG tube for gastric decompression. 3. If the patient remains lethargic today, obtain CT head. 4. Continue bronchodilator therapy. 5. The patient will ultimately require CT-guided lung biopsy, given suspected underlying lung cancer. IMPRESSIONS: 1. Acute on chronic combined respiratory failure The patient has known COPD of unknown severity along with chronic hypoxemic respiratory failure, with a baseline oxygen requirement of 3 L/min, according to documentation. She does have a chronically elevated serum bicarbonate level, suggestive that she likely has a component of chronic CO2 retention, at her baseline. The patient is currently being medically managed with bronchodilator therapy along with noninvasive positive pressure ventilatory support to address her CO2 retention. Unfortunately, she developed abdominal distention, likely secondary to aerophagia in the setting of PAP therapy. Therefore, NG tube will be placed for gastric decompression. Will obtain follow-up ABG this morning. If the patient remains acidotic, we will transition her to AVAPS therapy and monitor her clinically. 2. Newly identified lung mass The patient has a very large right upper lobe lung mass, concerning for underlying malignancy. Ultimately, the patient will require CT-guided lung biopsy, for definitive diagnosis. If there is availability in radiology while the patient is still admitted to the hospital, the biopsy can be completed while inpatient. Alternatively, if there is no availability, the patient can follow- up in the pulmonary medicine clinic after discharge, at which time, we can arrange for percutaneous lung biopsy. 3. Right femoral neck fracture, now POD #1 status post right hip hemiarthroplasty Continue routine postoperative care per orthopedics. 4. Encephalopathy Most likely metabolic in nature in the setting of acute CO2 retention. TSH is within normal limits. 5. History of tobacco dependency, in remission/hypertension/hyperlipidemia/hypothyroidism Complicates care, management, recovery and prognosis. Continue supportive care along with home medications as indicated. This note was generated with [employer] software. It may contain incorrect words, spelling, and punctuation that were not noted in checking the note before signing. Subjective Subjective The patient was seen and examined at the bedside this morning. Events from the last 24 hours have been reviewed. The patient is currently afebrile, hemodynamically stable and maintaining appropriate oxygen saturations on 6 L/min via nasal cannula. The patient was maintained on BiPAP therapy overnight. Unfortunately, the patient has developed abdominal distention, likely secondary to aerophagia, while on BiPAP. This morning, the patient was once again quite lethargic. She again will not answer any questions. She did undergo successful right hip hemiarthroplasty yesterday. Objective Data Objective Data The patient's most recent lab work, culture data and imaging studies have all been personally reviewed. Vital Signs: Vital Signs Temp Pulse Resp BP Pulse Ox O2 Del Method O2 Flow Rate 99.3 F H 114 H 30 H 113/57 L 92 Nasal Cannula 7 11/25/23 05:20 11/25/23 07:13 11/25/23 07:13 11/25/23 05:20 11/25/23 07:13 11/25/23 07:13 11/25/23 07:13 FiO2 45 11/25/23 06:44 Oxygen Flow Rate (L/min) 7 Oxygen Delivery Method Nasal Cannula Weight: 99 lb 13.91 oz Body Mass Index (BMI) 16.6 Intake & Output: Intake and Output for Last 24 Hours 11/23/23 11/24/23 11/25/23 23:59 23:59 23:59 Intake Total 2405.25 / 2405.25 212.75 / 212.75 Output Total 575 / 675 200 / 200 Balance 1830.25 / 1730.25 12.75 / 12.75 Lab / Micro Data Attestation: I reviewed the patient's lab results. 11/25/23 05:35 11/25/23 05:35 Labs: Laboratory Results - last 24 hr 11/24/23 06:44: Differential Comment SCANNED, Diff Path Review January, Sodium 129 L, Potassium 4.9, Chloride 91 L, Carbon Dioxide 36.0 H, Anion Gap 2 L, BUN 32 H, Creatinine 0.96, Estim Creat Clear Calc 33.98, Est GFR (MDRD) Af Amer 72, Est GFR (MDRD) Non-Af 60, BUN/Creatinine Ratio 33.4 H, Glucose 228 H, Calcium 9.9, Total Bilirubin 0.30, AST 36, ALT 34, Alkaline Phosphatase 64, Total Protein 7.2, Albumin 3.0 L, Globulin 4.2, Albumin/Globulin Ratio 0.7 L, TSH 1.61, Blood Type A POSITIVE, Antibody Screen NEGATIVE 11/24/23 08:15: POC Glucose 209 H 11/25/23 05:35: WBC 17.8 H, RBC 3.43 L, Hgb 9.8 L, Hct 31.3 L, MCV 91.3, MCH 28.6, MCHC 31.3 L, RDW Std Deviation 44.4 H, RDW Coeff of Jomar 13.4, Plt Count 227, MPV 9.9, Immature Gran % (Auto) 0.400, Neut % (Auto) 93.7 H, Lymph % (Auto) 2.3 L, [place] % (Auto) 3.5, Eos % (Auto) 0.0, Baso % (Auto) 0.1, Absolute Neuts (auto) 16.7 H, Absolute Lymphs (auto) 0.41 L, Nucleated RBC % 0, Sodium 135 L, Potassium 5.1, Chloride 96 L, Carbon Dioxide 34.0 H, Anion Gap 5, BUN 50 H, Creatinine 1.47 H, Estim Creat Clear Calc 22.19, Est GFR (MDRD) Af Amer 44 L, Est GFR (MDRD) Non-Af 36 L, BUN/Creatinine Ratio 34.0 H, Glucose 137 H, Calcium 9.4 ABG Data ABG results: ABG 11/24/23 11/24/23 08:27 09:46 Specimen Type ART ART Sample Site Not entered R Radial pH 7.11 L* 7.21 L Bicarbonate Actual 39.4 H 35.2 H Total CO2 43 38 Base Excess 10 H 7 H O2 Saturation 83 L 90 L O2 % 5.0 45.0 ABG pCO2 125.4 H* 87.4 H* ABG pO2 68 L 76 Respiration Rate 12 O2 Delivery Device Cannula BiPAP Vent Mode Not entered Not entered POC PEEP 6 Crit Call To/Read Back Yes Yes Blood Gas Notified Whom estrella de la rosa Blood Gas Notified Time 08:28:55 09:47:58 Radiography Diagnostic Testing: Radiology Impression Echocardiogram 11/23/23 22:53 Interpretation Summary Normal LV size. Left ventricular systolic function is hyperdynamic. The left ventricular ejection fraction is 70 %. There is mild mitral annular calcification. Stage 1 diastolic dysfunction. Pulmonary artery systolic pressure is 59 mmHg. Moderate pulmonary hypertension. Ordering Physician: Ani Gillis Performed By: Madelyn Acosta, OUMAR Hip X-Ray 11/24/23 15:32 IMPRESSION: Status post right hip replacement. Electronically Signed: Doe Castle MD at 17:14 EST , Physical Exam Const Constitutional Narrative: The patient remains lethargic this morning. She will once again open her eyes and track but will not answer questions. HEENT normocephalic and head/scalp atraumatic Eyes PERRL and conjunctivae normal Neck supple General: trachea midline Chest Chest Narrative: Increased AP diameter. Resp Resp Narrative: Globally diminished air movement throughout all lung galvan. Effort and Inspection: tachypneic Cardio regular rate and regular rhythm GI soft to palpation and non-tender Inspection: abdominal distention Extremity no clubbing, cyanosis or edema Skin no rashes or lesions noted Neuro Neuro Narrative: Globally decreased muscle strength throughout all extremities. Psych Mood & Affect: flat affect Charges/Coding Visit Charges Inpatient E&M: 23362 Subs Hosp L3
[2023-11-25 07:47] LABS: Allen Test Positive; Base Excess 8 mmol/L (-2 to +2); Bicarbonate 36.3 mmol/L (22-26); Blood Gas Specimen Type ART; Mode Not entered; O2 Delivery Device Cannula; PO2 87 mmHG (75-100); SITE R Radial; SO2 93 % (95-99); Total Carbon Dioxide 39 mmol/L; pCO2 93.5 mmHg (35-45)
--- NOTE | 2023-11-25 07:50 | CPS ---
Pt was placed back on AVAPS per Dr Hamilton. Pt currently pulling at mask, pulled tubing out of mask. This RT was able to secure it and pt little less agitated, not pulling as much.
[2023-11-25] MEDS: 0.9% Normal Saline (250mL Bag) 250 ML 15 ML IV (08:54)
[2023-11-25 09:16] LABS: Pathologist Review Reviewed
--- NOTE | 2023-11-25 09:26 | PN.HOSP_ITS ---
Subjective Subjective Still confused, was wearing BiPAP overnight however it looks that she is developing some gastric distention from air as well as possible ileus Objective Data Objective Data Vital Signs: Vital Signs Temp Pulse Resp BP Pulse Ox O2 Del Method O2 Flow Rate 98.1 F 117 H 22 H 114/71 94 Bi-pap 7 11/25/23 08:42 11/25/23 08:42 11/25/23 08:42 11/25/23 08:42 11/25/23 08:42 11/25/23 08:42 11/25/23 07:13 FiO2 45 11/25/23 08:42 Oxygen Flow Rate (L/min) 7 Oxygen Delivery Method Bi-pap Weight: 99 lb 13.91 oz Body Mass Index (BMI) 16.6 Intake & Output: Intake and Output for Last 24 Hours 11/24/23 11/25/23 11/26/23 03:59 03:59 03:59 Intake Total 2405.25 / 2405.25 212.75 / 212.75 Output Total 675 / 675 100 / 100 Balance 1730.25 / 1730.25 112.75 / 112.75 Lab / Micro Data 11/25/23 05:35 11/25/23 05:35 Labs: Laboratory Results - last 24 hr 11/24/23 06:44: Diff Path Review Reviewed 11/25/23 05:35: WBC 17.8 H, RBC 3.43 L, Hgb 9.8 L, Hct 31.3 L, MCV 91.3, MCH 28.6, MCHC 31.3 L, RDW Std Deviation 44.4 H, RDW Coeff of Jomar 13.4, Plt Count 227, MPV 9.9, Immature Gran % (Auto) 0.400, Neut % (Auto) 93.7 H, Lymph % (Auto) 2.3 L, Walsh % (Auto) 3.5, Eos % (Auto) 0.0, Baso % (Auto) 0.1, Absolute Neuts (auto) 16.7 H, Absolute Lymphs (auto) 0.41 L, Nucleated RBC % 0, Sodium 135 L, Potassium 5.1, Chloride 96 L, Carbon Dioxide 34.0 H, Anion Gap 5, BUN 50 H, Creatinine 1.47 H, Estim Creat Clear Calc 22.19, Est GFR (MDRD) Af Amer 44 L, Est GFR (MDRD) Non-Af 36 L, BUN/Creatinine Ratio 34.0 H, Glucose 137 H, Calcium 9.4 ABG Data ABG results: ABG 11/24/23 11/25/23 09:46 07:41 Specimen Type ART ART Sample Site R Radial R Radial pH 7.21 L 7.20 L Bicarbonate Actual 35.2 H 36.3 H Total CO2 38 39 Base Excess 7 H 8 H O2 Saturation 90 L 93 L O2 % 45.0 7.0 ABG pCO2 87.4 H* 93.5 H* ABG pO2 76 87 Brandon Test Positive Respiration Rate 12 O2 Delivery Device BiPAP Cannula Vent Mode Not entered Not entered POC PEEP 6 Crit Call To/Read Back Yes Yes Blood Gas Notified Whom estrella de la rosa Blood Gas Notified Time 09:47:58 07:43:48 Radiography Diagnostic Testing: Radiology Impression Echocardiogram 11/23/23 22:53 Interpretation Summary Normal LV size. Left ventricular systolic function is hyperdynamic. The left ventricular ejection fraction is 70 %. There is mild mitral annular calcification. Stage 1 diastolic dysfunction. Pulmonary artery systolic pressure is 59 mmHg. Moderate pulmonary hypertension. Ordering Physician: Ani Gillis Performed By: Madelyn Acosta, OUMAR Hip X-Ray 11/24/23 15:32 IMPRESSION: Status post right hip replacement. Electronically Signed: Doe Castle MD at 17:14 EST , KUB X-Ray 11/25/23 06:37 IMPRESSION: Findings in keeping with ileus pattern. Electronically Signed: Giovani Evans MD at 8:25 EST , Physical Exam Narrative General: Alert, disoriented, no apparent distress, cachectic HEENT: Atraumatic, PERRLA, EOMI, Normocephalic Oral: Dry mucosa Neck: Supple, No JVD Lungs: Diminished, Normal air movement, No rhonchi, No wheeze, No rales Cardiovascular: Regular rate, Regular Rhythm, Normal S1, Normal S2, No murmurs Abdomen: Soft, Non Tender, Non-Distended, No Hepato-splenomegaly Extremities: No edema, Capillary Refill Less than 3 Seconds Skin: Dressing CDI Musculoskeletal: No Tenderness to Palpation of Joints or Extremities Neurological: Does not follow commands Psych/Mental Status: Flat Assessment & Plan Assessment/Plan (1) Hip fracture: PLAN: Plan 1. Acute hypercapnic respiratory failure in the setting of chronic COPD with chronic hypoxic respiratory failure and a large cavitary lesion in the right mid upper lung/ENEDELIA ? Initially on presentation she was maintaining her oxygen saturations on her baseline 3 L and she was alert and oriented ? She did have improvement on the BiPAP yesterday in discussion with pulmonology, will place an NG tube today to help with decompression and hopefully be able to place her back on BiPAP. Repeat ABG today shows a pCO2 of 93 ? Will continue with noninvasive ventilatory management until she becomes more alert. ? She will need a biopsy of the cavitary lesion in the right lung ?Renal function increased from 0.77 to 1.47 2. Right femoral neck fracture status post mechanical fall status post repair 11/24/2023: ? PT/OT ? Continue with pain medications as able given her hypercapnic respiratory failure ? Appreciate orthopedic surgery's assistance 3. Essential HTN/HLD ? Blood pressure stable ? Echo with an EF of 70% with stage I diastolic dysfunction and a PASP of 59 mmHg ? Continue with Lipitor ? We will monitor make adjustments as necessary 4. Hypothyroidism ? Stable ? Continue with Synthroid ? She is status post subtotal thyroidectomy DVT: SCDs Charges/Coding Visit Charges Inpatient E&M: 46709 Subs Hosp L2
--- NOTE | 2023-11-25 09:31 | PCM.PN.ORT ---
Subjective Subjective Seen and examined. Patient is on BiPAP her family is in the room she is minimally responsive but not verbal. Objective Data Objective Data Vital Signs: Vital Signs Temp Pulse Resp BP Pulse Ox O2 Del Method O2 Flow Rate 98.1 F 117 H 22 H 114/71 94 Bi-pap 7 11/25/23 08:42 11/25/23 08:42 11/25/23 08:42 11/25/23 08:42 11/25/23 08:42 11/25/23 08:42 11/25/23 07:13 FiO2 45 11/25/23 08:42 Oxygen Flow Rate (L/min) 7 Oxygen Delivery Method Bi-pap Weight: 99 lb 13.91 oz Body Mass Index (BMI) 16.6 Intake & Output: Intake and Output for Last 24 Hours 11/23/23 11/24/23 11/25/23 23:59 23:59 23:59 Intake Total 2405.25 / 2405.25 212.75 / 212.75 Output Total 575 / 675 200 / 200 Balance 1830.25 / 1730.25 12.75 / 12.75 Lab / Micro Data 11/25/23 05:35 11/25/23 05:35 Labs: Laboratory Results - last 24 hr 11/24/23 06:44: Diff Path Review Reviewed 11/25/23 05:35: WBC 17.8 H, RBC 3.43 L, Hgb 9.8 L, Hct 31.3 L, MCV 91.3, MCH 28.6, MCHC 31.3 L, RDW Std Deviation 44.4 H, RDW Coeff of Jomar 13.4, Plt Count 227, MPV 9.9, Immature Gran % (Auto) 0.400, Neut % (Auto) 93.7 H, Lymph % (Auto) 2.3 L, [place] % (Auto) 3.5, Eos % (Auto) 0.0, Baso % (Auto) 0.1, Absolute Neuts (auto) 16.7 H, Absolute Lymphs (auto) 0.41 L, Nucleated RBC % 0, Sodium 135 L, Potassium 5.1, Chloride 96 L, Carbon Dioxide 34.0 H, Anion Gap 5, BUN 50 H, Creatinine 1.47 H, Estim Creat Clear Calc 22.19, Est GFR (MDRD) Af Amer 44 L, Est GFR (MDRD) Non-Af 36 L, BUN/Creatinine Ratio 34.0 H, Glucose 137 H, Calcium 9.4 ABG Data ABG results: ABG 11/24/23 11/25/23 09:46 07:41 Specimen Type ART ART Sample Site R Radial R Radial pH 7.21 L 7.20 L Bicarbonate Actual 35.2 H 36.3 H Total CO2 38 39 Base Excess 7 H 8 H O2 Saturation 90 L 93 L O2 % 45.0 7.0 ABG pCO2 87.4 H* 93.5 H* ABG pO2 76 87 Brandon Test Positive Respiration Rate 12 O2 Delivery Device BiPAP Cannula Vent Mode Not entered Not entered POC PEEP 6 Crit Call To/Read Back Yes Yes Blood Gas Notified Nely de la rosa Blood Gas Notified Time 09:47:58 07:43:48 Radiography Diagnostic Testing: Radiology Impression Echocardiogram 11/23/23 22:53 Interpretation Summary Normal LV size. Left ventricular systolic function is hyperdynamic. The left ventricular ejection fraction is 70 %. There is mild mitral annular calcification. Stage 1 diastolic dysfunction. Pulmonary artery systolic pressure is 59 mmHg. Moderate pulmonary hypertension. Ordering Physician: Ani Gillis Performed By: Madelyn Acosta RDCS Hip X-Ray 11/24/23 15:32 IMPRESSION: Status post right hip replacement. Electronically Signed: Doe Castle MD at 17:14 EST , KUB X-Ray 11/25/23 06:37 IMPRESSION: Findings in keeping with ileus pattern. Electronically Signed: Giovani Evans MD at 8:25 EST , Physical Exam Const Orientation / Consciousness: confused Extremity Extremity Narrative: Right hip dressing clean dry and intact compartments soft, palpable pedal pulses she is able to wiggle her toes up and down Assessment & Plan Assessment/Plan (1) Fracture of femoral neck, closed: QUALIFIERS: Encounter type: initial encounter Laterality: right Qualified Code(s): S72.001A - Fracture of unspecified part of neck of right femur, initial encounter for closed fracture PLAN: Plan Postop day #1 right hip hemiarthroplasty PT OT weightbearing as tolerated when medically able Posterior hip precautions DVT prophylaxis SCDs JENNIFER hose Eliquis 2.5 mg twice daily for 3 weeks Leave dressing on for 7 days postop then remove and start cleaning incision daily with antibacterial soap and warm water and reapply dry dressing Staple check in 2 weeks postop
[2023-11-25] MEDS: 0.9% Saline Lock 10 ML Syringe IV ×3 (09:58→16:49)
--- NOTE | 2023-11-25 11:56 | NURSING ---
Per Dr. Ignacio, OK to Hold all PO/Gtt medications
--- NOTE | 2023-11-25 18:44 | RAD_ITS ---
We are attempting to reach an attending provider to discuss findings. An addendum with communication details will be sent when the communication is complete. STUDY: X-RAY - ABDOMEN/PELVIS REASON FOR EXAM: Female, 77 years old. NG PLACEMENT TECHNIQUE: Portable chest and KUB COMPARISON: None. FINDINGS: There is a large noncalcified mass in the right upper lobe suspicious for neoplasm. Interstitial thickening is seen in the left lower lobe likely chronic. Severe diffuse ileus pattern is noted. There is no demonstrated free abdominal air. The visualized liver, spleen and kidneys are grossly normal in size and morphology. NG tube is noted curled up in the throat should be withdrawn and reinserted Normal soft tissue structures. Lumbar spine demonstrates degenerative change.] Right hip prosthesis is noted. RAD/Abdomen Single View (Portable) IMPRESSION: Severe diffuse ileus pattern. NG tube curled in the throat and should be removed and reinserted Electronically Signed: Blanco Archibald MD at 20:17 EST ,
[2023-11-26] VITALS (17 sets, daily range): BP systolic 118–138; BP diastolic 44–78; PULSE 100–120; RESP 14–28; TEMP 36.4–36.8; O2SAT 94–100; BMI 16.5
[2023-11-26] MEDS: Morphine 2 MG/ML Syringe IV ×2 (00:10→04:15)
--- NOTE | 2023-11-26 01:00 | RAD_ITS ---
EXAM: XR ABDOMEN, 1 VIEW CLINICAL INDICATION: NG placement TECHNIQUE: Frontal supine view of the abdomen/pelvis. COMPARISON: Previous radiographs of 11/25/2023. FINDINGS: TUBES, LINES AND DEVICES: Single over penetrated view of the chest at 12:49 AM shows interval repositioning of the NG tube. The NG tube now extends to the level of the mid to distal esophagus, with the tip of the tube projected approximately 12 cm above the level of the GE junction. The tube again forms a loop in the region of the throat. LOWER THORAX: Large noncalcified mass is again seen within the right upper lobe. Findings of pulmonary emphysema are again demonstrated. Patchy airspace disease again noted within the left lower lung, worrisome for pneumonia. RAD/Abdomen Single View (Portable) IMPRESSION: Continued suboptimal positioning of the NG tube; the tube has been advanced and its tip is now projected at the level of the mid to distal esophagus, well above the level of the hemidiaphragms. Electronically Signed: Kev Vazquez MD at 2:56 EST ,
[2023-11-26] MEDS: Ipratropium/Albuterol Sulfate 3 ML AMPUL.NEB INHALATION ×6 (03:10→22:58)
--- NOTE | 2023-11-26 04:29 | PCM.HOSP.N ---
Hospitalist Note Patient with ongoing issues with NG placement. Most recent attempt with again NG reported above the stomach still in the esophagus. Will advance 7-10 cm and repeat KUB as well as CXR. Requested also for aspiration/whoosh test per staff for assistance in determining appropriate positioning.
--- NOTE | 2023-11-26 04:30 | RAD_ITS ---
ACR Level 3 findings have been noted. An addendum which confirms receipt of the report will follow. STUDY: X-RAY CHEST REASON FOR EXAM: Female, 77 years old. NG tube positioning. TECHNIQUE: Single frontal view of the chest. COMPARISON: Earlier in the day. FINDINGS: NG tube tip projected over the lower esophagus with the side hole projected over the mid esophagus. NG tube should be advanced at least 10 cm for the tip to be below the left hemidiaphragm. Stable cardiomegaly, aortic tortuosity with calcification, prominent central pulmonary arteries and large right upper lobe mass with changes of COPD. No abnormality of the visualized soft tissue structures of the upper abdomen. RAD/Chest 1 View (Portable) IMPRESSION: Tip of NG tube projecting over the lower esophagus and should be advanced at least 10 cm. Electronically Signed: Carrillo Lopez MD at 9:22 EST ,
[2023-11-26] MEDS: 0.9% Normal Saline (250mL Bag) 250 ML 15 ML IV (06:37)
[2023-11-26 06:44] LABS: Absolute Lymphocyte Count 0.57 X10^3/uL (0.83-4.51); Absolute Neutrophil Count 13.7 X10^3/uL (2.0-7.7); Basophil# 0.02 X10^3/uL; Basophil% 0.1 % (0-1); Hemoglobin 9.3 g/dL (12.0-15.0); Lymphocyte # 0.57 X10^3/ul (0.83-4.51); Lymphocyte % 3.7 % (19-41); Mean Corp Hgb Conc 32.1 g/dL (32-36); Mean Corpuscular Hgb 28.9 pg (27.0-32.0); Mean Corpuscular Volume 90.1 fL (81-99); Mean Platelet Vol. 10.3 fl (6.2-12.0); Monocyte# 1.04 X10^3/uL; Monocyte% 6.8 % (0-10); NRBC Flagged by Analyzer 0 % (0-5); Neutrophil # 13.65 X10^3/uL (2.7-7.7); Neutrophil % 88.9 % (47-70); POSITIVE DIFFERENTIAL YES; Platelet Count 206 K/mm3 (150-450); RBC Distribution Width CV 13.8 % (11.6-14.6); RBC Distribution Width SD 46.2 fl (35.1-43.9); Red Blood Count 3.22 M/mm3 (4.2-5.4); White Blood Count 15.4 K/mm3 (4.4-11.0)
[2023-11-26] MEDS: Budesonide Respules 0.5 MG/2 ML AMPUL.NEB. INHALATION ×2 (06:49→19:38)
[2023-11-26 07:40] LABS: Anion Gap 6 (5-15); BUN 73 mg/dL (7-18); BUN/Creat Ratio 54.5 RATIO (10-20); Calcium,Total 9.4 mg/dL (8.5-10.1); Chloride 102 mmol/L (98-107); Creatinine, Serum 1.34 mg/dL (0.55-1.02); EST Glomerular Filtration Rate 41 mL/min (>60); Est Glom Filt Rate - Afr Amer 49 mL/min (>60); Estimated Creatinine Clearance 24.24 ml/min; Glucose 22 mg/dL (74-106); Potassium 4.5 mmol/L (3.5-5.1); Sodium Level 141 mmol/L (136-145)
[2023-11-26] MEDS: Dextrose 50%-Water 25 GM/50 ML DISP.SYRIN IV ×2 (07:42→10:50)
--- NOTE | 2023-11-26 07:42 | NURSING ---
lab called with glucose of 22. this nurse to room with primary RN, pt alert/eyes open, respirations even bipap maintained. primary RN checked OT 16 while this nurse pulled and gave 1amp D50%/ Dr. Levi sent text. 0745 Dr. Levi updated, ordered to recheck glucose in 20minutes. 122/44, 109. primary RN aware
[2023-11-26] MEDS: 0.9% Saline Lock 10 ML Syringe IV ×5 (07:51→23:54)
[2023-11-26 08:36] LABS: International Normalized Ratio 1.1; Prothrombin Time (Protime)PT. 14.2 SECONDS (11.7-14.9)
[2023-11-26] MEDS: Lactated Ringers 1,000 ML 50 ML IV (08:56)
[2023-11-26 09:08] LABS: Bedside Glucose 163 mg/dL (74-106)
[2023-11-26 09:08] LABS: Bedside Glucose 16 mg/dL (74-106)
[2023-11-26 09:19] LABS: Bedside Glucose 98 mg/dL (74-106)
[2023-11-26] MEDS: Dextrose 5%-Lactated Ringers 1,000 ML 50 ML IV (09:58)
[2023-11-26] MEDS: Morphine 2 MG/ML Syringe 1 MG IV ×4 (10:00→23:55)
[2023-11-26 10:22] LABS: Bedside Glucose 72 mg/dL (74-106)
[2023-11-26 10:37] LABS: Allen Test Positive; Base Excess 9 mmol/L (-2 to +2); Bicarbonate 33.6 mmol/L (22-26); Blood Gas Specimen Type ART; Mode AVAPS; O2 Delivery Device BiPAP; PEEP 12; PO2 97 mmHG (75-100); RR 14; SITE R Radial; SO2 97 % (95-99); Total Carbon Dioxide 35 mmol/L; pH 7.39 (7.35-7.45)
[2023-11-26 10:52] LABS: Bedside Glucose 69 mg/dL (74-106)
[2023-11-26 11:47] LABS: Bedside Glucose 164 mg/dL (74-106)
[2023-11-26 12:32] LABS: Bedside Glucose 156 mg/dL (74-106)
--- NOTE | 2023-11-26 13:02 | PCM.PN.HOSP ---
Reason for Visit Reason for Visit: Diagnoses Acute and chronic respiratory failure with hypoxia (11/23/23) Acute and chronic respiratory failure with hypercapnia (11/23/23) Fracture of unspecified part of neck of right femur, initial encounter for closed fracture (11/23/23) Fracture of unspecified part of neck of unspecified femur, initial encounter for closed fracture (11/23/23) Subjective Subjective Noted by Dr. Gillis that patient failed multiple attempts with NG tube placement earlier this morning unfortunately, NG tube kept coiling at the level of the stomach. I initially saw patient in the room this morning around 9 AM, several family members present. Patient was on BiPAP at that time and had notable increased work of breathing, however her vital signs were stable and did not appear the patient was more anxious than anything. ABG drawn at that time showed pH 7.38, pCO2 56 which were much improved from yesterday. Patient family also reported some improvement in patient's abdominal distention and discomfort compared to yesterday. Patient was given a dose of IV morphine 1 mg with good improvement in her agitation. Return to the bedside to see patient this afternoon. Patient was still on BiPAP at that time and breathing comfortably, had no acute concerns. Discussed with respiratory therapy, decision was made to transition patient from BiPAP to nasal cannula this afternoon with plan to continue BiPAP at night going forward. Patient and family were in agreement with this plan. Objective Data Objective Data Vital Signs: Vital Signs Temp Pulse Resp BP Pulse Ox O2 Del Method O2 Flow Rate 97.6 F L 101 H 22 H 122/44 H 100 Bi-pap 45 11/26/23 07:45 11/26/23 10:09 11/26/23 10:09 11/26/23 07:45 11/26/23 10:09 11/26/23 07:57 11/25/23 16:35 FiO2 40 11/26/23 10:09 Oxygen Flow Rate (L/min) 45 Oxygen Delivery Method Bi-pap Weight: 45.1 kg Body Mass Index (BMI) 16.5 Intake & Output: Intake and Output for Last 24 Hours 11/24/23 11/25/23 11/26/23 23:59 23:59 23:59 Intake Total 2405.25 / 2405.25 322.75 / 322.75 231.5 / 231.5 Output Total 575 / 675 300 / 300 350 / 350 Balance 1830.25 / 1730.25 22.75 / 22.75 -118.5 / -118.5 Lab / Micro Data 11/26/23 05:45 11/26/23 05:45 Labs: Laboratory Results - last 24 hr 11/26/23 05:45: WBC 15.4 H, RBC 3.22 L, Hgb 9.3 L, Hct 29.0 L, MCV 90.1, MCH 28.9, MCHC 32.1, RDW Std Deviation 46.2 H, RDW Coeff of Jomar 13.8, Plt Count 206, MPV 10.3, Immature Gran % (Auto) 0.500, Neut % (Auto) 88.9 H, Lymph % (Auto) 3.7 L, Lucas % (Auto) 6.8, Eos % (Auto) 0.0, Baso % (Auto) 0.1, Absolute Neuts (auto) 13.7 H, Absolute Lymphs (auto) 0.57 L, Nucleated RBC % 0, Sodium 141, Potassium 4.5, Chloride 102, Carbon Dioxide 33.0 H, Anion Gap 6, BUN 73 H, Creatinine 1.34 H, Estim Creat Clear Calc 24.24, Est GFR (MDRD) Af Amer 49 L, Est GFR (MDRD) Non-Af 41 L, BUN/Creatinine Ratio 54.5 H, Glucose 22 L*, Calcium 9.4 11/26/23 07:41: POC Glucose 16 L* 11/26/23 08:02: POC Glucose 163 H 11/26/23 08:03: PT 14.2, INR 1.1 11/26/23 08:54: POC Glucose 98 11/26/23 09:57: POC Glucose 72 L 11/26/23 10:33: POC Glucose 69 L 11/26/23 11:10: POC Glucose 164 H 11/26/23 12:15: POC Glucose 156 H Micro: Microbiology 11/25/23 17:00 Urine Catheter - Hutchins Legionella Antigen - Final 11/25/23 17:00 Urine Catheter - Hutchins Streptococcus pneumoniae Antigen (M - Final ABG Data ABG results: ABG 11/26/23 10:32 Specimen Type ART Sample Site R Radial pH 7.39 Bicarbonate Actual 33.6 H Total CO2 35 Base Excess 9 H O2 Saturation 97 O2 % 40.0 ABG pCO2 56.0 H ABG pO2 97 Brandon Test Positive Respiration Rate 14 O2 Delivery Device BiPAP Vent Mode AVAPS Tidal Volume 450.0 POC PEEP 12 Radiography Diagnostic Testing: Radiology Impression KUB X-Ray 11/25/23 18:44 IMPRESSION: Severe diffuse ileus pattern. NG tube curled in the throat and should be removed and reinserted Electronically Signed: Blanco Archibald MD at 20:17 EST , ADDENDUM: 11/25/232050 IMPRESSION: Severe diffuse ileus pattern. NG tube curled in the throat and should be removed and reinserted N.B. : The above Results were Read Back by Blanco Archibald MD to Ani Gillis MD, and understanding confirmed on 11/25/2023 20:44:15 (ET). Electronically Signed: Blanco Archibald MD at 20:17 EST , KUB X-Ray 11/26/23 01:00 IMPRESSION: Continued suboptimal positioning of the NG tube; the tube has been advanced and its tip is now projected at the level of the mid to distal esophagus, well above the level of the hemidiaphragms. Electronically Signed: Kev Vazquez MD at 2:56 EST , Chest X-Ray 11/26/23 04:30 IMPRESSION: Tip of NG tube projecting over the lower esophagus and should be advanced at least 10 cm. Electronically Signed: Carrillo Lopez MD at 9:22 EST , ADDENDUM: 11/26/23 1007 IMPRESSION: Tip of NG tube projecting over the lower esophagus and should be advanced at least 10 cm. N.B. : Denisse Sullivan RN, confirmed on 11/26/2023 10:00:11 (ET) that the healthcare facility has received the radiology report. Electronically Signed: Carrillo Lopez MD at 9:22 EST , Physical Exam Const alert Constitutional Narrative: Elderly female, chronically ill-appearing and cachectic, mild distress on BiPAP but appears to be mentating appropriately. General Appearance: cooperative HEENT normocephalic, head/scalp atraumatic, hearing grossly normal bilaterally and nasal mucous membranes and turbinates normal Eyes PERRL, EOMs intact bilaterally and conjunctivae normal Neck full ROM, no lymphadenopathy and supple Lymph Lymphatic: no lymphadenopathy noted Chest inspection of chest normal Resp Resp Narrative: Mild to moderate increased work of breathing noted on BiPAP this morning at 40% FiO2, good air movement bilaterally, no crackles or wheezing noted. Cardio no murmurs and peripheral pulses 2+ throughout Cardio Narrative: Tachycardic, regular rhythm. GI GI Narrative: Mildly distended but soft and nontender on palpation. Back/Spine normal ROM Extremity normal to inspection and no pedal edema Skin no rashes or lesions noted Neuro no focal motor deficits and no sensory deficits noted Psych Mood & Affect: anxious Assessment & Plan Assessment/Plan (1) Acute on chronic respiratory failure with hypoxia and hypercapnia: (2) ENEDELIA (acute kidney injury): PLAN: Plan Patient is a 77-year-old female who presented to [facility] ED on 11/23/2023 with right hip pain after mechanical fall at home. 1. Acute hypercapnic respiratory failure in the setting of chronic COPD with chronic hypoxic respiratory failure and a large cavitary lesion in the right mid upper lung/ENEDELIA ? Initially on presentation was maintaining her oxygen saturations on baseline 3 L, was alert and oriented. Decompensated after her hip procedure as noted below. Pulmonology following. Chest x-ray postoperatively showed a large mass within the right mid upper lung measuring 8.3 x 7.2 cm with questionable cavitation, could indicate neoplasm versus cavitary infectious process; also showed hyperinflated lungs with mildly worsened interstitial markings. ABG on 11/24 showed pCO2 greater than 100, improved with BiPAP. Again had hypercapnia with pCO2 of 93 on 11/25. Required BiPAP pretty consistently from 11/24 through morning of 11/26, ABG on 11/26 showed pH 7.38 and pCO2 56, patient mentation improving. Transitioned to nasal cannula on afternoon of 11/26, monitoring closely. Continue BiPAP at night. Patient will ultimately need biopsy of cavitary lesion in right lung. If patient decompensates, palliative/hospice care has been discussed with family briefly to this point and they would be open to further discussions as needed. 2. Right femoral neck fracture ? Due to mechanical fall at home. S/p total hip replacement with orthopedics on 11/24. PT/OT/case management following. Continue pain medications as able. Orthopedic surgery following. 3. Ileus, improving ? Noted on KUB, presumed secondary to excess air in stomach and intestines from persistent BiPAP use. Attempted to place NG tube multiple times but unfortunately had coiling at the level of the stomach. Subjectively improving on 11/26, continue to monitor clinically. Remains n.p.o. for now. 4. ENEDELIA, improving ? Creatinine worsened to 1.47 on 11/25. Baseline creatinine 0.7-0.9, was at baseline on admission. Suspected secondary to postop hypotension and postop hypercapnia with some degree of hypoxia. Creatinine mildly improved to 1.34 on 11/26, continue to monitor BMP and urine output daily. 5. Intermittent hypoglycemia ? Patient with no history of diabetes. Noted to be hypoglycemic with blood glucose 22 on morning of 11/26 on BMP, multiple Accu-Checks showed similar readings. Improved with D50 bolus but patient downtrended again, started on D5 LR 50 ml/hr, will continue this for now. Continue ACHS glucose checks for now. Unclear etiology, liver function appears to be normal, may be secondary to acute illness. 6. Essential HTN/HLD ? Blood pressure stable during hospitalization. Echo 11/23 with EF 70%, stage I diastolic dysfunction, PASP of 59 mmHg. Continue home Lipitor, amlodipine. Holding home enalapril and hydrochlorothiazide for now. 7. Hypothyroidism ? S/p subtotal thyroidectomy. Stable. Continue home Synthroid. DVT prophylaxis: SCDs CODE STATUS: DNR CCA, DNI Expected disposition: TBD Total clinical time spent by myself addressing the patient's medical issues, reviewing all the data, and collaborating with patient's care team: 35 minutes. Charges/Coding Visit Charges Inpatient E&M: 49957 Subs Hosp L2
[2023-11-26] MEDS: Menthol/Lanolin/Calamine/Znox 113 GM Tube 1 APPLIC TOPICAL ×2 (13:31→22:22)
[2023-11-26 15:22] LABS: Bedside Glucose 129 mg/dL (74-106)
[2023-11-26] MEDS: BACITRACIN 15 GM Tube 1 APPLIC TOPICAL ×2 (16:53→22:19)
[2023-11-26 19:24] LABS: Bedside Glucose 100 mg/dL (74-106)
[2023-11-26 22:56] LABS: Bedside Glucose 82 mg/dL (74-106)
[2023-11-27] VITALS (17 sets, daily range): BP systolic 120–144; BP diastolic 46–59; PULSE 93–111; RESP 20–30; TEMP 36.3–36.9; O2SAT 89–99; BMI 16.5
--- NOTE | 2023-11-27 02:45 | CPS ---
Patient refuses to wear AVAPS at this time. RN notified.
[2023-11-27 07:30] LABS: Bedside Glucose 87 mg/dL (74-106)
[2023-11-27] MEDS: Budesonide Respules 0.5 MG/2 ML AMPUL.NEB. INHALATION (08:31)
[2023-11-27] MEDS: Ipratropium/Albuterol Sulfate 3 ML AMPUL.NEB INHALATION ×2 (08:31→12:57)
[2023-11-27 08:38] LABS: Hematocrit 27.1 % (37-47); Hemoglobin 7.9 g/dL (12.0-15.0); Mean Corp Hgb Conc 29.2 g/dL (32-36); Mean Corpuscular Hgb 27.6 pg (27.0-32.0); Mean Corpuscular Volume 94.8 fL (81-99); Mean Platelet Vol. 9.7 fl (6.2-12.0); Platelet Count 182 K/mm3 (150-450); RBC Distribution Width CV 13.9 % (11.6-14.6); RBC Distribution Width SD 48.4 fl (35.1-43.9); Red Blood Count 2.86 M/mm3 (4.2-5.4)
[2023-11-27 09:02] LABS: Anion Gap -4 (5-15); BUN 46 mg/dL (7-18); BUN/Creat Ratio 70.2 RATIO (10-20); Calcium,Total 9.9 mg/dL (8.5-10.1); Chloride 108 mmol/L (98-107); Creatinine, Serum 0.66 mg/dL (0.55-1.02); EST Glomerular Filtration Rate 92 mL/min (>60); Est Glom Filt Rate - Afr Amer 112 mL/min (>60); Estimated Creatinine Clearance 40.51 ml/min; Glucose 80 mg/dL (74-106); Sodium Level 144 mmol/L (136-145)
[2023-11-27] MEDS: 0.9% Saline Lock 10 ML Syringe IV ×3 (10:40→23:18)
[2023-11-27] MEDS: Morphine 2 MG/ML Syringe 1 MG IV ×3 (10:41→23:18)
[2023-11-27] MEDS: Menthol/Lanolin/Calamine/Znox 113 GM Tube 1 APPLIC TOPICAL (10:41)
[2023-11-27 10:59] LABS: Bedside Glucose 70 mg/dL (74-106)
[2023-11-27] MEDS: Dextrose 50%-Water 25 GM/50 ML DISP.SYRIN IV (11:23)
--- NOTE | 2023-11-27 12:06 | PCM.PN.HOSP ---
Reason for Visit Reason for Visit: Diagnoses Acute and chronic respiratory failure with hypoxia (11/23/23) Acute and chronic respiratory failure with hypercapnia (11/23/23) Acute kidney failure, unspecified (11/23/23) Fracture of unspecified part of neck of right femur, initial encounter for closed fracture (11/23/23) Fracture of unspecified part of neck of unspecified femur, initial encounter for closed fracture (11/23/23) Subjective Subjective Patient seen at bedside this morning, multiple family were present. Per nursing staff and patient, she refused the BiPAP last night due to the pain was causing on her nose and general discomfort with BiPAP. However, she slept well overnight and appears improved from a mental status standpoint this morning. Patient has not eaten since prior to her operation on 11/24, states she feels very hungry this morning and would like to eat when able. Told patient family we will have speech therapy see her to clear for diet. Has mild abdominal distention this morning with no pain, similar to yesterday afternoon, noted to patient and family we will monitor this when she starts a diet. Patient is also hoping to get up to the edge of the bed and possibly move around with assistance, told patient and family we will have therapy see her today as well. No other acute concerns morning. Objective Data Objective Data Vital Signs: Vital Signs Temp Pulse Resp BP Pulse Ox O2 Del Method O2 Flow Rate 98.3 F 102 H 22 H 120/55 L 92 Nasal Cannula 6 11/27/23 10:28 11/27/23 10:28 11/27/23 10:28 11/27/23 10:28 11/27/23 10:28 11/27/23 10:28 11/27/23 08:43 FiO2 40 11/26/23 22:57 Oxygen Flow Rate (L/min) 6 Oxygen Delivery Method Nasal Cannula Weight: 45 kg Body Mass Index (BMI) 16.5 Intake & Output: Intake and Output for Last 24 Hours 11/25/23 11/26/23 11/27/23 23:59 23:59 23:59 Intake Total 322.75 / 322.75 231.5 / 236.5 255 / 255 Output Total 300 / 300 1000 / 1400 750 / 750 Balance 22.75 / 22.75 -768.5 / -1163.5 -495 / -495 Lab / Micro Data 11/27/23 08:15 11/27/23 08:15 Labs: Laboratory Results - last 24 hr 11/26/23 12:15: POC Glucose 156 H 11/26/23 15:00: POC Glucose 129 H 11/26/23 18:09: POC Glucose 100 11/26/23 22:16: POC Glucose 82 11/27/23 07:08: POC Glucose 87 11/27/23 08:15: WBC 11.0, RBC 2.86 L, Hgb 7.9 L, Hct 27.1 L, MCV 94.8 D, MCH 27.6, MCHC 29.2 L D, RDW Std Deviation 48.4 H, RDW Coeff of Jomar 13.9, Plt Count 182, MPV 9.7, Sodium 144, Potassium 4.0, Chloride 108 H, Carbon Dioxide 40.0 H, Anion Gap -4 L, BUN 46 H, Creatinine 0.66, Estim Creat Clear Calc 40.51, Est GFR (MDRD) Af Amer 112, Est GFR (MDRD) Non-Af 92, BUN/Creatinine Ratio 70.2 H, Glucose 80, Calcium 9.9 11/27/23 10:40: POC Glucose 70 L Micro: Microbiology 11/25/23 17:00 Urine Catheter - Hutchins Legionella Antigen - Final 11/25/23 17:00 Urine Catheter - Hutchins Streptococcus pneumoniae Antigen (M - Final Physical Exam Const alert and no apparent distress Constitutional Narrative: Elderly female, chronically ill-appearing and cachectic, breathing comfortably on nasal cannula, mentating appropriately and in no acute distress this morning. General Appearance: cooperative HEENT normocephalic, head/scalp atraumatic, hearing grossly normal bilaterally and nasal mucous membranes and turbinates normal Eyes PERRL, EOMs intact bilaterally and conjunctivae normal Neck full ROM, no lymphadenopathy and supple Lymph Lymphatic: no lymphadenopathy noted Chest inspection of chest normal Resp Resp Narrative: Mildly diminished breath sounds bilaterally, no wheezing or crackles noted, similar to yesterday. Cardio no murmurs and peripheral pulses 2+ throughout Cardio Narrative: Tachycardic, regular rhythm. GI GI Narrative: Mildly distended but soft and nontender on palpation, similar to yesterday. Back/Spine normal ROM Extremity normal to inspection and no pedal edema Skin no rashes or lesions noted Neuro no focal motor deficits and no sensory deficits noted Assessment & Plan Assessment/Plan (1) Acute on chronic respiratory failure with hypoxia and hypercapnia: (2) ENEDELIA (acute kidney injury): PLAN: Plan Patient is a 77-year-old female who presented to [facility] ED on 11/23/2023 with right hip pain after mechanical fall at home. 1. Acute hypercapnic respiratory failure in the setting of chronic COPD with chronic hypoxic respiratory failure and a large cavitary lesion in the right mid upper lung/ENEDELIA, improving Initially on presentation was maintaining her oxygen saturations on baseline 3 L, was alert and oriented. Decompensated after her hip procedure as noted below. Chest x-ray postoperatively showed a large mass within the right mid upper lung measuring 8.3 x 7.2 cm with questionable cavitation, could indicate neoplasm versus cavitary infectious process; also showed hyperinflated lungs with mildly worsened interstitial markings. ABG on 11/24 showed pCO2 greater than 100, improved with BiPAP. Again had hypercapnia with pCO2 of 93 on 11/25. Required BiPAP pretty consistently from 11/24 through morning of 11/26, ABG on 11/26 showed pH 7.38 and pCO2 56, patient mentation improving. Transitioned to nasal cannula on afternoon of 11/26 and tolerated without issue. ? Pulmonology following. Patient satting well and breathing comfortably on 4 to 5 L nasal cannula on 11/27. Patient refused BiPAP overnight on 11/26- due to pain on the bridge of her nose plus discomfort with BiPAP, had no decreased mentation or other signs of hypercapnia on morning of 11/27. Continue supplemental oxygen and wean as able. Will continue to recommend BiPAP at night. Per pulmonology, patient ultimately need biopsy cavitary lesion in right lung when stable for this. 2. Right femoral neck fracture ? Due to mechanical fall at home. S/p total hip replacement with orthopedics on 11/24. PT/OT/case management following. Continue pain medications as able. Orthopedic surgery following. 3. Ileus, improving ? Noted on KUB, presumed secondary to excess air in stomach and intestines from persistent BiPAP use. Attempted to place NG tube multiple times but unfortunately had coiling at the level of the stomach. Subjectively improving on 11/26, continue to monitor clinically. Remains n.p.o. for now due to dysphagia as noted below. 4. ENEDELIA, improving ? Creatinine worsened to 1.47 on 11/25. Baseline creatinine 0.7-0.9, was at baseline on admission. Suspected secondary to postop hypotension and postop hypercapnia with some degree of hypoxia. Creatinine mildly improved to 1.34 on 11/26, continue to monitor BMP and urine output daily. 5. Intermittent hypoglycemia ? Patient with no history of diabetes. Noted to be hypoglycemic with blood glucose 22 on morning of 11/26 on BMP, multiple Accu-Checks showed similar readings. Improved with D50 bolus but patient downtrended again, started on D5 LR 50 ml/hr with some improvement. Continue D5 LR at this rate for now. Continue ACHS glucose checks, treat hypoglycemia per protocol. Unclear etiology, liver function appears to be normal, may be secondary to acute illness. 6. Dysphagia ? Speech therapy evaluated on 11/27. Diagnosed with severe oropharyngeal dysphagia. Recommendation for continued n.p.o. with ice chips sparingly given by RN injury and family. MBSS ordered for further evaluation. 7. Essential HTN/HLD ? Blood pressure stable during hospitalization. Echo 11/23 with EF 70%, stage I diastolic dysfunction, PASP of 59 mmHg. Continue home Lipitor, amlodipine. Holding home enalapril and hydrochlorothiazide for now. 8. Hypothyroidism ? S/p subtotal thyroidectomy. Stable. Continue home Synthroid. DVT prophylaxis: SCDs CODE STATUS: DNR CCA, DNI Expected disposition: TBD Total clinical time spent by myself addressing the patient's medical issues, reviewing all the data, and collaborating with patient's care team: 35 minutes. Charges/Coding Visit Charges Inpatient E&M: 62247 Subs Hosp L2
[2023-11-27 12:41] LABS: Bedside Glucose 168 mg/dL (74-106)
[2023-11-27 16:08] LABS: Bedside Glucose 120 mg/dL (74-106)
[2023-11-27 18:32] LABS: Bedside Glucose 106 mg/dL (74-106)
--- NOTE | 2023-11-27 21:48 | PCM.HOSP.N ---
Hospitalist Note Family has requested that patient be transition to DNR CC comfort care and that hospice order set to be initiated. They requested hospice be consulted all of which has been performed.
[2023-11-28] MEDS: LORazepam 2 MG/ML Bottle 0.5 MG SL ×2 (00:20→04:33)
[2023-11-28] MEDS: 0.9% Saline Lock 10 ML Syringe IV (03:54)
[2023-11-28] MEDS: Morphine 2 MG/ML Syringe 1 MG IV (03:55)
--- NOTE | 2023-11-28 07:33 | NURSING ---
called into room per family pt had passed at 0730- no hr - resps noted
--- NOTE | 2023-11-28 15:03 | DS.PCM_ITS ---
Providers Date of Admission: 11/23/23 Date of Discharge: 11/28/23 Primary Care Physician: No Primary Care Phys Consultations 11/23/23 22:53 Consult: Orthopedics Routine Consulting Provider: Nikolay Navarro Reason for Consult: Fall, R hip fx EMERGENT Consult: No MD Notified: Yes Date Notified: 11/23/23 Time Notified: 22:06 Method of Notification: ED Physician Initiated 11/24/23 06:30 Consult: Hydraulic Plumber / Pulmonary Medicine Routine Consulting Provider: Tone Hamilton Reason for Consult: Pre-op assess/anesthesia req, COPD/chronic 3L with new lung mass EMERGENT Consult: No MD Notified: Yes Date Notified: 11/23/23 Time Notified: 22:05 Method of Notification: Text 11/27/23 21:48 Consult: Hospice / Palliative Care Routine Consulting Provider: [facility] Reason for Consult: Family interested in hospice transition EMERGENT Consult: No MD Notified: Yes Date Notified: 11/27/23 Time Notified: 21:48 Method of Notification: Answering Service Reason For Visit: FALL, HIP FRACTURE Diagnosis Discharge Diagnosis (1) Acute on chronic respiratory failure with hypoxia and hypercapnia: Status: Chronic Code(s): J96.21 - Acute and chronic respiratory failure with hypoxia; J96.22 - Acute and chronic respiratory failure with hypercapnia (2) ENEDELIA (acute kidney injury): Status: Acute Code(s): N17.9 - Acute kidney failure, unspecified Medications at Discharge Home Medications Atorvastatin Calcium 40 mg PO DAILY 03/26/17 enalapril maleate 20 mg tablet 20 mg PO BID 03/26/17 fluticasone 250 mcg-salmeterol 50 mcg/dose blistr powdr for inhalation (Advair Diskus) 1 ea IH DAILY 03/26/17 hydrochlorothiazide 25 mg tablet 25 mg PO DAILY 03/26/17 levothyroxine 88 mcg tablet (Synthroid) 88 mcg PO DAILY 03/26/17 amlodipine 10 mg tablet 10 mg PO DAILY 11/23/23 tiotropium bromide 1.25 mcg/actuation mist for inhalation (Spiriva Respimat) 2 puff inhalation Q24H 11/23/23 Hospital Course Summary of Care Provided Minutes Spent on Discharge: 35 Hospital Course: Patient is a 77-year-old female who presented to [facility] ED on 11/23/2023 with right hip pain after mechanical fall at home. Patient was found to have a right hip fracture. Orthopedics followed. S/p right total hip replacement on 11/24. Patient unfortunately had respiratory decompensation on the evening of 11/24 with hypercapnic respiratory failure. ABG showed a PCO2 greater than 100 at that time. CXR showed hyperinflated lungs with mildly wo rsened interstitial markings, but notably also showed a new right mid upper lung measuring 8.3 x 7.2 cm with questionable cavitation concerning for a cavitary infectious process versus neoplasm. Patient did show improvement with continuous BiPAP through the morning of 11/26. Repeat ABG on 11/26 showed a pH of 7.38 and pCO2 of 56. BIPAP was removed at that time and patient tolerated nasal cannula without issue. Patient remained comfortable but generally was very cachectic with a BMI of 16.5 and debilitated. She failed a bedside swallow study on 11/27 and plan was for her to have an MBSS done for further evaluation, so she was without nutrition from 11/24 through 11/27. On the evening of 11/27, patient was noted by nursing staff to have significantly worsened confusion and agonal respirations. Decision was made by family to transition patient to comfort care status at approximately 1900 on evening of 11/27. Patient passed peacefully on the morning of 11/28. Time of 729. Medical conditions addressed during hospitalization: - Right femoral neck fracture - Acute hypercapnic respiratory failure - Right mid upper lung large cavitary lesion - ENEDELIA - Ileus - Dysphagia - Intermittent hypoglycemia - Essential HTN - Hyperlipidemia - Hypothyroidism - COPD with chronic hypoxic respiratory failure Total clinical time spent by myself addressing the patient's discharge needs: 35 minutes. Weight / BMI Weight Weight: 45 kg Body Mass Index (BMI) 16.5 ABG / Lab / Microbiology Data 11/27/23 08:15 11/27/23 08:15 Laboratory: Laboratory Results - last 24 hr 11/27/23 15:51: POC Glucose 120 H 11/27/23 18:14: POC Glucose 106 Microbiology: Microbiology 11/25/23 17:00 Urine Catheter - Hutchins Legionella Antigen - Final 11/25/23 17:00 Urine Catheter - Hutchins Streptococcus pneumoniae Antigen (M - Final Discharge Plan Admission Admit Date/Time: 11/23/23 22:04 Primary Reason for Your Visit: aspiration pneumonia Attending Provider: Bakari Lindsey Primary Care Provider: Care Physician,No Primary Consulting Providers: Nikolay Navarro; Ani Gillis; Seun Ignacio; Tanvir Cerda; Susan Finney; Mary Hu; Alena Siu NP; Catalino Levi Disposition Disposition (needs filled in before D/C Order can be placed):
--- NOTE | 2023-11-28 15:03 | DCINST_ITS ---
Discharge Instructions Follow Up Care Test Results: Test results from this visit will be discussed in further detail at your follow- up appointment, if applicable. Discharge Plan Admission Admit Date/Time: 11/23/23 22:04 Primary Reason for Your Visit: aspiration pneumonia Attending Provider: Bakari Lindsey Primary Care Provider: Care Physician,No Primary Consulting Providers: Nikolay Navarro; Ani Gillis; Seun Ignacio; Tanvir Cerda; Susan Finney; Mary Hu; Alena Siu NP; Catalino Levi Disposition Disposition (needs filled in before D/C Order can be placed):
--- NOTE | 2023-11-28 15:15 | PCM.DEATH ---
Preliminary Cause of Preliminary Cause of Preliminary Cause of : Acute on chronic respiratory failure, Failure to thrive Date of Admission: 11/23/23 Date of : 11/28/23 Principle Diagnosis Problem List: Active and Suspected Problems (Updated 11/26/23 @ 16:[address] Catalino Levi, DO) ENEDELIA (acute kidney injury) (Acute) Fracture of femoral neck, closed (Acute) Hip fracture (Acute) Hospital Course Patient is a 77-year-old female who presented to [facility] ED on 11/23/2023 with right hip pain after mechanical fall at home. Patient was found to have a right hip fracture. Orthopedics followed. S/p right total hip replacement on 11/24. Patient unfortunately had respiratory decompensation on the evening of 11/24 with hypercapnic respiratory failure. ABG showed a PCO2 greater than 100 at that time. CXR showed hyperinflated lungs with mildly worsened interstitial markings, but notably also showed a new right mid upper lung measuring 8.3 x 7.2 cm with questionable cavitation concerning for a cavitary infectious process versus neoplasm. Pulmonology evaluated, recommended eventual CT-guided biopsy of lesion when medically stable. Patient did show improvement with continuous BiPAP through the morning of 11/26. Repeat ABG on 11/26 showed a pH of 7.38 and pCO2 of 56. BIPAP was removed at that time and patient tolerated nasal cannula without issue. Patient remained comfortable but generally was very cachectic with a BMI of 16.5 and debilitated. She failed a bedside swallow study on 11/27 and plan was for her to have an MBSS done for further evaluation, so she was without nutrition from 11/24 through 11/27. On the evening of 11/27, patient was noted by nursing staff to have significantly worsened confusion and agonal respirations. Decision was made by family to transition patient to comfort care status at approximately 1900 on evening of 11/27. Patient passed peacefully on the morning of 11/28. Time of 0730. Medical conditions addressed during hospitalization: - Right femoral neck fracture - Acute hypercapnic respiratory failure - Right mid upper lung large cavitary lesion - ENEDELIA - Ileus - Dysphagia - Intermittent hypoglycemia - Essential HTN - Hyperlipidemia - Hypothyroidism - COPD with chronic hypoxic respiratory failure Assessment & Plan Assessment/Plan (1) Fracture of femoral neck, closed: QUALIFIERS: Encounter type: initial encounter Laterality: right Qualified Code(s): S72.001A - Fracture of unspecified part of neck of right femur, initial encounter for closed fracture (2) Acute on chronic respiratory failure with hypoxia and hypercapnia: (3) ENEDELIA (acute kidney injury): Visit Charges Inpatient E&M: 36398 Disch Hosp >30min
== END 2023-11-28 09:50 | DRG 521 ==
LOC: ED 20:38 → MS3 22:50
PROVIDERS: Family Medicine; Hospitalist; Orthopaedic Surgery; Admitting Provider Family Medicine; Emergency Provider Student in an Organized Health Care Education/Training Program
PROC: 0SRR0J9 Replacement of Right Hip Joint, Femoral Surface with Synthetic Substitute, Cemented, Open Approach (ICD-10-PCS; CPT 27125; principal; 2023-11-24 13:10)
DX: S72.001A Fracture of unspecified part of neck of right femur, initial encounter for closed fracture (principal); J96.22 Acute and chronic respiratory failure with hypercapnia; J96.21 Acute and chronic respiratory failure with hypoxia; G93.41 Metabolic encephalopathy; N17.9 Acute kidney failure, unspecified; K56.7 Ileus, unspecified; E87.29 Other acidosis; I50.30 Unspecified diastolic (congestive) heart failure; I11.0 Hypertensive heart disease with heart failure; J43.9 Emphysema, unspecified; E03.9 Hypothyroidism, unspecified; E83.52 Hypercalcemia; S93.401A Sprain of unspecified ligament of right ankle, initial encounter; E78.5 Hyperlipidemia, unspecified; E89.0 Postprocedural hypothyroidism; I95.81 Postprocedural hypotension; E16.2 Hypoglycemia, unspecified; W19.XXXA Unspecified fall, initial encounter; R91.8 Other nonspecific abnormal finding of lung field; Z79.51 Long term (current) use of inhaled steroids; Z87.891 Personal history of nicotine dependence; Z66 Do not resuscitate; Z51.5 Encounter for palliative care; Z82.3 Family history of stroke; R91.1 Solitary pulmonary nodule; Z79.891 Long term (current) use of opiate analgesic; Z96.641 Presence of right artificial hip joint; R62.7 Adult failure to thrive; R13.12 Dysphagia, oropharyngeal phase
CPT/HCPCS: 36415; 36600; 71045; 71260; 72170; 73502; 73552; 73590; 73600; 74018; 80048; 80053; 82330; 82803; 82962; 84145; 84443; 84484; 85025; 85027; 85610; 86850; 86900; 86901; 87449; 88305; 88311; 92610; 93005; 93306; 94002; 94003; 94640; 94762; 97162; 97166; 99283; C1776; J7030; J7050; J7120; Q9967; A4216